=== PATIENT | female | born 1950 | race Hispanic/Latino ===

== ENCOUNTER 2018-08-23 16:11 | Inpatient (IN) | payer BC, MEDICARE ==
--- NOTE | 2018-08-23 16:58 | CT ---
EXAM: CT brain without contrast HISTORY: Dizziness. Fell and hit head COMPARISON: None TECHNIQUE: Multiple contiguous axial images were obtained and a CT of the brain without contrast. FINDINGS: The brain is normal in morphology and attenuation without focal lesions or confluent areas of infarction. There is no evidence of hydrocephalus, intracranial hemorrhage, or extra-axial fluid collection. An implantable generator in the right parietal region with leads leading to the inner ear produces st reak artifact slightly limiting this examination.. The visualized paranasal sinuses and left mastoid air cells are well aerated. IMPRESSION: No evidence of acute intracranial abnormality
--- NOTE | 2018-08-23 17:11 | RAD ---
EXAM: Single view of the chest HISTORY: Dizziness and fall COMPARISON: 03/31/2003 FINDINGS: Single view of the chest shows a normal sized cardiomediastinal silhouette. There is no darline dence of consolidation, mass, or pleural effusion. Degenerative changes are seen in the spine. IMPRESSION: No evidence of acute cardiopulmonary disease
[2018-08-23 17:26] LABS: #Lymphocytes 0.7 thou/uL (1.20-3.40); #Monocytes 0.4 thou/uL (0.11-0.59); %Basophils 0.1 % (0.0-1.0); %Eosinophils 0.3 % (0.0-10.0); %Lymphocytes 7.7 % (21.0-51.0); %Monocytes 4.7 % (0.0-10.0); %Neutrophils 87.2 % (42.0-75.0); Hemoglobin 10.1 g/dL (12.0-16.0); Mean Corpuscular HGB CONC 33.3 g/dL (32.0-36.0); Mean Corpuscular Hemoglobin 31.3 pg (27.0-31.0); Mean Corpuscular Volume 93.8 fL (78.0-98.0); Platelet Count 168 thou/uL (130-400); Red Blood Cell (RBC) Count 3.23 mill/uL (4.20-5.40); White Blood Cell (WBC) Count 9.1 thou/uL (4.8-10.8)
--- NOTE | 2018-08-23 17:44 | RAD ---
EXAM: Single view of the chest HISTORY: Dizziness COMPARISON: 03/31/2003 FINDINGS: Single view of the chest shows a normal sized cardiomediastinal silhouette. Atheroscleroti c calcifications are seen in the aorta. There are subtle bilateral lower lobe airspace opacities which may represent atelectasis or infiltrates. IMPRESSION: Bilateral lower lobe atelectasis versus infiltrates.
[2018-08-23 17:47] LABS: ALT (SGPT) 28 U/L (8-55); AST (SGOT) 20 U/L (5-34); Albumin 3.4 g/dL (3.4-4.8); Alkaline Phosphatase 101 U/L (40-150); Anion Gap 15 mmol/L (10-20); BUN (Urea Nitrogen) 53 mg/dL (9.8-20.1); Bilirubin, Total 0.3 mg/dL (0.2-1.2); Calc. Creatinine Clearance 0 mL/min (70-130); Calcium 8.2 mg/dL (7.8-10.44); Carbon Dioxide 18 mmol/L (23-31); Chloride 108 mmol/L (98-107); Estimated GFR-MDRD 19; Globulin 2.4 g/dL (2.4-3.5); Glucose 337 mg/dL (80-115); Potassium 6.4 mmol/L (3.5-5.1); Protein, Total 5.8 g/dL (6.0-8.3); Sodium 135 mmol/L (136-145)
[2018-08-23 18:49] LABS: Bilirubin Negative (Negative); Blood, Urine Negative (Negative); Clarity CLOUDY (Clear); Glucose, Urine (Dipstick) >=1000 mg/dL (Negative); Leukocyte Negative (Negative); Nitrite Negative (Negative); Protein, Urine (Dipstick) 100 mg/dL (Neg-Trace); Specific Gravity, Urine 1.015 (1.002-1.036); Urobilinogen 0.2 mg/dL (0.2-1.0)
[2018-08-23 18:50] LABS: Bacteria/HPF None Seen HPF (None Seen); Hyaline Casts/LPF 4-6 HYALINE CAST LPF (0-3 Hyaline); Pathc Cast-AUWi Flag 1.22 (0-2.49); RBC/HPF 0-3 HPF (0-3); Squamous Epithelial 0-3 HPF (0-3); WBC/HPF 0-3 HPF (0-3)
[2018-08-23] MEDS ORDERED: Sodium Bicarbonate 150 MEQ in Dextrose 5% in Water 1,000 ML IV SCH (19:00)
[2018-08-23] MEDS ORDERED: Acetaminophen 325 MG TAB PO PRN (20:01)
[2018-08-23] MEDS ORDERED: Dextrose 50% Abboject 50 ML SYRINGE SLOW IVP PRN (20:02)
[2018-08-23] MEDS ORDERED: Dextrose 5% in Water 1,000 ML IV PRN (20:02)
[2018-08-23 21:01] VITALS: BMI 36.4
[2018-08-23] MEDS: Metoprolol Tartrate 50 MG TAB PO SCH (21:12)
[2018-08-23] MEDS: Atorvastatin Calcium 40 MG TAB PO SCH (21:12)
[2018-08-23] MEDS: Gabapentin 300 MG CAP PO SCH (21:12)
[2018-08-23 22:01] LABS: Anion Gap 13 mmol/L (10-20); BUN (Urea Nitrogen) 52 mg/dL (9.8-20.1); Calc. Creatinine Clearance 36 mL/min (70-130); Calcium 8.6 mg/dL (7.8-10.44); Carbon Dioxide 21 mmol/L (23-31); Chloride 108 mmol/L (98-107); Estimated GFR-MDRD 21; Glucose 308 mg/dL (80-115); Potassium 5.4 mmol/L (3.5-5.1); Sodium 137 mmol/L (136-145)
[2018-08-23] MEDS: HumaLOG 300 UNITS/3 ML VIAL SC PRN (22:33)
[2018-08-23] MEDS: Sodium Chloride 0.9% 1,000 ML IV SCH (23:45)
[2018-08-24 00:23] LABS: Troponin I Less than 0.010 ng/mL (< 0.028)
--- NOTE | 2018-08-24 03:38 | HP ---
CHIEF COMPLAINT: Dizziness, near syncope. HISTORY OF PRESENT ILLNESS: This patient is a 67-year-old female, who recently underwent cochlear implants, still going through the process and at this point is still having the same hearing difficulties. Since she had the implants on July 24, she has been having some headaches and dizziness. Today, her headache was more severe when she got up, she had more profound dizziness and fell and bumped the back of her head on the left side. The patient reports that last week she was given p.o. steroids for the dizziness, and during that time, her blood sugars were running well over 500 in addition to the steroids. The patient has been having some difficulty getting her medications from the pharmacy [facility], so she has been getting samples and had to change her medications, and since that time, she has had very poor blood sugar control. She does admit to significant polyuria, polydipsia, and has had just a general sense of profound fatigue. She has not had any significant fever. REVIEW OF SYSTEMS: All other systems are reviewed. All pertinent positives noted in the history of present illness. PAST MEDICAL HISTORY: Notable for diabetes, hypertension, and hyperlipidemia. PAST SURGICAL HISTORY: Cochlear implants on July 24. She had , bilateral cataractectomy, cholecystectomy, gastric bypass surgery. FAMILY HISTORY: She has a sister with some type of female cancer, who is still doing well in her 70s and working as a nurse. Another sister who a few weeks ago, who had end-stage renal disease. Her father also had end-stage renal disease and heart issues. SOCIAL HISTORY: The patient is a nonsmoker, nondrinker, and nondrug user. She is . Her is her surrogate decision maker, should that become necessary and she is full code. ALLERGIES: AZITHROMYCIN, IODINE. CURRENT MEDICATIONS: 1. Omeprazole 20 mg daily. 2. Tylenol No. 3 p.r.n., which she has not been using because she did not like the way it made her feel. 3. Nifedipine 60 mg daily. 4. Levemir 20 q.a.m. and 16 units subcu with her evening meal. 5. Atorvastatin 40 mg daily. 6. Levothyroxine 100 mcg daily. 7. Liothyronine 5 mcg daily. 8. Lisinopril 10 mg daily. 9. Jardiance 25 mg daily. 10. Metoprolol 50 mg b.i.d. 11. Gabapentin 300 mg at bedtime. 12. Sertraline 50 mg p.o. daily. PHYSICAL EXAMINATION: VITAL SIGNS: Blood pressure 122/56, pulse 65, respirations 19, O2 saturation 97 % on room air. She is afebrile. GENERAL APPEARANCE: Age-appropriate female. She is in no distress. She is awake, alert, oriented, pleasant, and cooperative. She is deaf and communicates primarily at this point with writing on erasable pad. She is able to speak very appropriately. HEENT: PERRL. No OP lesions. She does have a well-healed incisional scars posterior to both auricles. She does have a small bump on the left posterolateral scalp behind the incisional scar about 2 inches. NECK: Supple and symmetric with no lymphadenopathy, JVD, or carotid bruits. HEART: Regular rate and rhythm without murmurs, gallops, or rubs. LUNGS: Clear to auscultation bilaterally with good chest wall expansion and air exchange. ABDOMEN: Soft, nontender, and nondistended. Positive bowel sounds. No masses. No organomegaly. EXTREMITIES: She has trace edema on the left lower extremity, none on the right. NEUROLOGIC: She appears to be fully intact. Moving all extremities spontaneously with no focal deficits. PSYCH: The patient has normal affect and behavior. LABORATORY DATA: White count 9.1, hemoglobin 10.1, platelets 168. Sodium is 135, potassium 6.4, chloride 108, CO2 of 18, BUN 53, creatinine 2.56, glucose 337. LFTs normal. Albumin 3.4. Urinalysis over 1000 of glucose, protein is present. IMAGING STUDIES: 1. Chest x-ray shows what looks like some atelectasis in the bases. 2. Brain CT shows no evidence of acute intracranial abnormalities. The cochlear implants are present. IMPRESSION AND PLAN: 1. Near syncopal episode secondary to dizziness following recent cochlear implants, likely an expected side effect of the cochlear implant. She did not improve with the steroids. Also, I believe there is a significant component of dehydration related to this. 2. Small posterior scalp contusion appears generally benign. 3. Dehydration, suspect that the patient has had severe hyperglycemia leading to polydipsia and dehydration causing some worsening renal function and contributing to her dizziness and fall. We will aggressively hydrate. 4. Acute renal insufficiency. The patient's typical GFR is around 35. It is down to 19, today. I suspect this is mostly a prerenal. The ER doctor did speak with Dr. Cotton, who has recommended some fluids and we will continue to monitor. 5. Hyperkalemia secondary to the acute renal insufficiency. Dr. Cotton did not recommend anything more aggressive than fluids and bicarbonate at this time. EKG did not show any significant changes related to the hyperkalemia. We will certainly continue to hydrate and recheck these values in the morning. 6. Mild acidosis secondary to the acute renal insufficiency. 7. History of hypothyroidism. Continue with her usual regimen and check her TSH in the morning. 8. Diabetes mellitus, very poorly controlled as noted above, secondary to recent steroids and changes in her medications. We will continue selected home medications and cover with sliding scale insulin. 9. History of hypertension. Continue metoprolol. We will hold lisinopril in light of the renal function. We will also continue her nifedipine. Job ID: [id number] [facility]
[2018-08-24] MEDS: Levothyroxine Sodium 100 MCG TAB PO SCH (05:19)
[2018-08-24 06:33] LABS: #Eosinphils 0.1 thou/uL (0.0-0.7); #Lymphocytes 1.2 thou/uL (1.20-3.40); #Monocytes 0.4 thou/uL (0.11-0.59); #Neutrophils 4.6 thou/uL (1.40-6.50); %Basophils 0.7 % (0.0-1.0); %Eosinophils 0.9 % (0.0-10.0); %Lymphocytes 19.1 % (21.0-51.0); %Neutrophils 73.4 % (42.0-75.0); Hemoglobin 9.8 g/dL (12.0-16.0); Hemoglobin A1c 7.9 % (4.0-6.0); Mean Corpuscular Hemoglobin 31.1 pg (27.0-31.0); Mean Corpuscular Volume 94.1 fL (78.0-98.0); Mean Platelet Volume 7.3 fL (7.4-10.4); Platelet Count 177 thou/uL (130-400); RBC Distribution Width 13.2 % (11.5-14.5); Red Blood Cell (RBC) Count 3.14 mill/uL (4.20-5.40); White Blood Cell (WBC) Count 6.2 thou/uL (4.8-10.8)
[2018-08-24 06:44] LABS: Anion Gap 12 mmol/L (10-20); BUN (Urea Nitrogen) 46 mg/dL (9.8-20.1); Calc. Creatinine Clearance 42 mL/min (70-130); Calcium 8.9 mg/dL (7.8-10.44); Carbon Dioxide 25 mmol/L (23-31); Chloride 109 mmol/L (98-107); Estimated GFR-MDRD 25; Glucose 159 mg/dL (80-115); Potassium 4.5 mmol/L (3.5-5.1); Sodium 141 mmol/L (136-145)
--- NOTE | 2018-08-24 07:50 | ULT ---
ULTRASOUND RENAL: DATE: 08/24/2018 HISTORY: Acute kidney injury in 67-year-old female. Rule out obstruction. FINDINGS: Urinary bladder volume is 890 mL. Normal wall thickness. Bilateral ureteral jets visualized. Right kidney: 9 x 5 x 4.5 cm. Left kidney: 11 x 4.5 x 5 cm. No hydronephrosis bilaterally. Bilateral renal parenchyma thin and slightly increased echogenicity suggestive of chronic medical rai al disease. No moderate sized or large renal cystic or solid lesion. IMPRESSION: 1. Very distended urinary bladder. 2. No hydronephrosis.
[2018-08-24] MEDS: Metoprolol Tartrate 50 MG TAB PO SCH ×2 (08:24→20:53)
[2018-08-24] MEDS: NIFEdipine XL 60 MG TAB PO SCH (08:24)
[2018-08-24] MEDS: Enoxaparin Sodium 30 MG/0.3 ML SYRINGE SC SCH (08:27)
[2018-08-24] MEDS: Sodium Chloride 0.9% 1,000 ML IV SCH ×3 (08:29→20:53)
--- NOTE | 2018-08-24 10:51 | PDOC.PN ---
- Subjective Encounter Start Date: 08/24/18 Encounter Start Time: 08:15 -: old records requested/rev Patient seen and examined. No new complaints. No overnight events - Objective Resuscitation Status - Order Detail: 08/23/18 20:01 Resuscitation Status Routine Resuscitation Status: FULL: Full Resuscitation MAR Reviewed: Yes Vital Signs & Weight: Vital Signs (12 hours) Temp Pulse Resp BP Pulse Ox 08/24/18 08:24 64 08/24/18 08:05 97.8 F 64 15 159/68 H 97 08/24/18 04:00 97.9 F 65 13 146/67 H 95 Weight Weight 221 lb I&O: 08/23/18 08/24/18 08/25/18 06:59 06:59 06:59 Intake Total 1050 Output Total 650 Balance 400 Result Diagrams: 08/24/18 05:50 08/24/18 05:50 Additional Labs: Accuchecks 08/24/18 08/24/18 08/23/18 10:24 06:38 22:01 POC Glucose 184 H 180 H 286 H 08/23/18 17:12 POC Glucose 303 H Radiology Reviewed by me: Yes (US kidney noted) EKG Reviewed by me: Yes (nsr) Phys Exam - Physical Examination Constitutional: NAD HEENT: PERRLA, moist MMs, sclera anicteric Neck: no JVD, supple Respiratory: no wheezing, no rales, no rhonchi Cardiovascular: RRR, no significant murmur, no rub Gastrointestinal: soft, non-tender, no distention, positive bowel sounds Musculoskeletal: no edema, pulses present Neurological: non-focal, normal sensation, moves all 4 limbs Lymphatic: no nodes Psychiatric: normal affect, A&O x 3 Skin: no rash, normal turgor Dx/Plan (1) Acute worsening of stage 3 chronic kidney disease Code(s): N18.3 - CHRONIC KIDNEY DISEASE, STAGE 3 (MODERATE) Status: Acute (2) Dehydration Code(s): E86.0 - DEHYDRATION Status: Acute (3) Dizziness Code(s): R42 - DIZZINESS AND GIDDINESS Status: Acute (4) Hyperkalemia Code(s): E87.5 - HYPERKALEMIA Status: Acute (5) Metabolic acidosis Code(s): E87.2 - ACIDOSIS Status: Acute (6) Scalp contusion Code(s): S00.03XA - CONTUSION OF SCALP, INITIAL ENCOUNTER Status: Acute (7) Anxiety and depression Code(s): F41.9 - ANXIETY DISORDER, UNSPECIFIED; F32.9 - MAJOR DEPRESSIVE DISORDER, SINGLE EPISODE, UNSPECIFIED Status: Chronic (8) Diabetes type 2, controlled Code(s): E11.9 - TYPE 2 DIABETES MELLITUS WITHOUT COMPLICATIONS Status: Chronic (9) Dyslipidemia Code(s): E78.5 - HYPERLIPIDEMIA, UNSPECIFIED Status: Chronic (10) Hypertension Code(s): I10 - ESSENTIAL (PRIMARY) HYPERTENSION Status: Chronic (11) Hypothyroidism Code(s): E03.9 - HYPOTHYROIDISM, UNSPECIFIED Status: Chronic (12) Obesity (BMI 30-39.9) Code(s): E66.9 - OBESITY, UNSPECIFIED Status: Chronic - Plan cont current plan of care, plan discussed w/ family, out of bed/ambulate * pt does not have currently bladder distension, she voided * creatinine is improving, continue IVF * discussed with family * medication reviewed as below * symptomatic treatment. * check free T4 and T3 in view of low TSH * repeat labs tomorrow * walking program Review of Systems - Review of Systems ENT: negative: Ear Pain, Ear Discharge, Nose Pain, Nose Discharge, Nose Congestion, Mouth Pain, Mouth Swelling, Throat Pain, Throat Swelling, Other Respiratory: negative: Cough, Dry, Shortness of Breath, Hemoptysis, SOB with Excertion, Pleuritic Pain, Sputum, Wheezing Cardiovascular: negative: chest pain, palpitations, orthopnea, paroxysmal nocturnal dyspnea, edema, light headedness, other Gastrointestinal: negative: Nausea, Vomiting, Abdominal Pain, Diarrhea, Constipation, Melena, Hematochezia, Other Genitourinary: negative: Dysuria, Frequency, Incontinence, Hematuria, Retention , Other Musculoskeletal: negative: Neck Pain, Shoulder Pain, Arm Pain, Back Pain, Hand Pain, Leg Pain, Foot Pain, Other Skin: negative: Rash, Lesions, Anthony, Bruising, Other - Medications/Allergies Allergies/Adverse Reactions: Allergies Allergy/AdvReac Type Severity Reaction Status Date / Time azithromycin Allergy Verified 11/30/12 10:43 iodine Allergy Verified 11/30/12 10:44 Medications: Current Medications Acetaminophen (Tylenol) 650 mg PO Q4H PRN PRN Reason: Headache/Fever/Mild Pain (1-3) Atorvastatin Calcium (Lipitor) 40 mg PO HS [facility] Last Admin: 08/23/18 21:12 Dose: 40 mg Dextrose/Water (Dextrose 50%) 25 gm SLOW IVP PRN PRN PRN Reason: Hypoglycemia Enoxaparin Sodium (Lovenox) 30 mg SC 0900 [facility] Last Admin: 08/24/18 08:27 Dose: 30 mg Gabapentin (Neurontin) 300 mg PO HS [facility] Last Admin: 08/23/18 21:12 Dose: 300 mg Glucagon (Glucagon) 1 mg IM PRN PRN PRN Reason: Hypoglycemia Sodium Chloride (Normal Saline 0.9%) 1,000 mls @ 125 mls/hr IV .Q8H [facility] Last Admin: 08/24/18 10:28 Dose: 1,000 mls Dextrose/Water (D5w) 1,000 mls @ 0 mls/hr IV .Q0M PRN PRN Reason: Hypoglycemia Insulin Human Lispro (Humalog) 0 units SC .MODERATE SLIDING SC PRN PRN Reason: Moderate Correctional Scale Insulin Human Lispro (Humalog) 0 units SC .BEDTIME SLIDING SC PRN PRN Reason: Bedtime Correctional Scale Last Admin: 08/23/18 22:33 Dose: 3 unit Levothyroxine Sodium (Synthroid) 100 mcg PO 0600 [facility] Last Admin: 08/24/18 05:19 Dose: 100 mcg Metoprolol Tartrate (Lopressor) 50 mg PO BID [facility] Last Admin: 08/24/18 08:24 Dose: 50 mg Nifedipine (Procardia Xl) 60 mg PO DAILY [facility] Last Admin: 08/24/18 08:24 Dose: 60 mg Pantoprazole Sodium (Protonix) 40 mg PO DAILY [facility] Last Admin: 08/24/18 08:24 Dose: 40 mg Sertraline HCl (Zoloft) 50 mg PO DAILY [facility] Last Admin: 08/24/18 08:24 Dose: 50 mg Sodium Chloride (Flush - Normal Saline) 10 ml IVF Q12HR [facility] Last Admin: 08/24/18 09:18 Dose: Not Given Sodium Chloride (Flush - Normal Saline) 10 ml IVF PRN PRN PRN Reason: Saline Flush
--- NOTE | 2018-08-24 11:35 | CON ---
DATE OF CONSULTATION: 08/23/2018 REASON FOR CONSULT: Hyperkalemia and acute kidney injury. REASON FOR ADMISSION: Near syncope. HISTORY OF PRESENT ILLNESS: This is a 67-year-old female with past history of diabetes, , hyperlipidemia, came to the hospital with near syncope and found to have elevated creatinine and potassium. Nephrology was consulted. The patient is feeling a bit better. She is hard of hearing. She cannot hear at all because of recent bilateral cochlear implants. No chest pain or palpitation. PAST MEDICAL HISTORY: Positive for diabetes, hyperlipidemia, , edema. PAST SURGICAL HISTORY: Cochlear implants, , bilateral cataract surgery, cholecystectomy, and gastric bypass. ALLERGIES: AZITHROMYCIN AND IODINE. HOME MEDICATIONS: 1. She takes potassium at home. 2. Levemir. 3. Sertraline. 4. Lisinopril. 5. Levothyroxine. 6. Nifedipine. 7. Atorvastatin. 8. Gabapentin. SOCIAL HISTORY: No smoking, alcohol, or illicit drugs. FAMILY HISTORY: No history of kidney disease. REVIEW OF SYSTEMS: CONSTITUTIONAL: Negative for weight loss or gain, ability to conduct usual activities. SKIN: Negative for rash, itching. EYES: Negative for double vision, pain. ENT/MOUTH: Negative for nose bleeding, neck stiffness, pain, tenderness. CARDIOVASCULAR: Negative for palpitations, dyspnea on exertion, orthopnea. RESPIRATORY: Negative for shortness of breath, wheezing, cough, hemoptysis, fever or night sweats. GASTROINTESTINAL: Negative for poor appetite, abdominal pain, heartburn, nausea, vomiting, constipation, or diarrhea. GENITOURINARY: Negative for urgency, frequency, dysuria, nocturia. MUSCULOSKELETAL: Negative for pain, swelling. NEUROLOGIC/PSYCHIATRIC: Negative for anxiety, depression. ALLERGY/IMMUNOLOGIC: Negative for skin rash, bleeding tendency. PHYSICAL EXAMINATION: GENERAL: Reveals an obese female, in no apparent distress. VITAL SIGNS: Temperature 99, pulse 71, respiratory rate 18, blood pressure 136/63. HEENT: Atraumatic, normocephalic. Oral mucosa is moist. NECK: Supple. CARDIOVASCULAR: S1, S2 heard. Rate and rhythm regular. RESPIRATORY: Clear. GI: Abdomen is obese. MUSCULOSKELETAL: No edema. DERMATOLOGIC: No skin rash. NEUROLOGICAL: Alert and awake. PSYCHIATRIC: Mood and affect normal. LABORATORY DATA: Hemoglobin is 10.1, potassium is 6.4 down to 5.4, bicarb is 21 from 18, BUN 52, and creatinine is 2.3. Hemoglobin is 10.1. ASSESSMENT AND PLAN: 1. Acute kidney injury, most likely from volume depletion. Creatinine is better with hydration. 2. Hyperkalemia, better with medical management. Continue to monitor. 3. Metabolic acidosis. 4. . 5. Anemia. 6. Hyperglycemia. 7. Type 2 diabetes. 8. Continue medical management. Potassium is already better. Continue close monitoring. Avoid nephrotoxins. Hold lisinopril and potassium supplement. We will continue to follow. Thank you for the consult. No acute indication for dialysis. Job ID: [id number]
[2018-08-24] MEDS ORDERED: Cepastat Lozenges 1 LOZ PO PRN (11:37)
[2018-08-24] MEDS ORDERED: Loperamide HCl 2 MG CAP PO PRN (11:37)
[2018-08-24] MEDS ORDERED: Loratadine 10 MG TAB PO PRN (11:37)
[2018-08-24] MEDS ORDERED: Senokot S 8.6-50 MG TAB PO PRN (11:37)
[2018-08-24] MEDS ORDERED: Ondansetron PF 4 MG/2 ML Vial IVP PRN (11:37)
[2018-08-24] MEDS ORDERED: Artificial Tears 18 DROP/0.9 ML EA EYE PRN (11:37)
[2018-08-24] MEDS ORDERED: Zolpidem Tartrate 5 MG TAB PO PRN (11:37)
[2018-08-24] MEDS ORDERED: hydrALAZINE 20 MG/ML VIAL SLOW IVP PRN (11:37)
[2018-08-24] MEDS ORDERED: Bisacodyl 10 MG SUPP PR PRN (11:37)
[2018-08-24] MEDS ORDERED: Ondansetron ODT 4 MG TAB PO PRN (11:37)
[2018-08-24] MEDS ORDERED: Diabetic Tussin 200 MG/10 ML UDCUP PO PRN (11:37)
[2018-08-24] MEDS ORDERED: HYDROcodone/Acetaminophen 5/325 mg Tablet PO PRN (11:37)
[2018-08-24] MEDS ORDERED: Sodium Chloride 0.65% Nasal 44 ML BOT EA NARE PRN (11:37)
--- NOTE | 2018-08-24 11:47 | PRG ---
DATE OF SERVICE: 08/24/2018 SUBJECTIVE: A 67-year-old female being seen for acute kidney injury. The patient denied any nausea, vomiting, or chest pain. OBJECTIVE: CONSTITUTIONAL: The patient is awake and alert. VITAL SIGNS: Pulse 75, breathing 16, and blood pressure 146/67. GENERAL APPEARANCE AND MENTAL STATUS: Fair. HEAD/NECK: Normocephalic. Atraumatic. EYES: EOMI. No deformity. EARS: Clear. No ulcers. NOSE: Intact. No lesions. MOUTH: Clear. No discharge. THROAT: Clear. No exudate. LUNGS: Clear. No crackles. CARDIAC: S1, S2. No rub. ABDOMEN: Benign. Bowel sounds positive. GENITALIA/RECTUM: Coppola absent. BACK/EXTREMITIES: Edema 0+. NEUROLOGICAL: Alert and motor intact. SKIN: LYMPHATICS: LABORATORY DATA: Labs reviewed. IMPRESSION AND PLAN: Chronic kidney disease stage 4, stable. Acute kidney injury, stable. Hypertension, stable. Anemia, stable. Medication based on GFR appropriate. Job ID: [id number]
[2018-08-24 13:24] LABS: Free T4 (Free Thyroxine) 0.97 ng/dL (0.70-1.48)
[2018-08-24] MEDS: HumaLOG 300 UNITS/3 ML VIAL SC PRN ×2 (17:49→20:53)
[2018-08-24] MEDS: Atorvastatin Calcium 40 MG TAB PO SCH (20:53)
[2018-08-24] MEDS: Gabapentin 300 MG CAP PO SCH (20:53)
[2018-08-25] MEDS: Levothyroxine Sodium 100 MCG TAB PO SCH (05:22)
[2018-08-25] MEDS: Sodium Chloride 0.9% 1,000 ML IV SCH (05:22)
[2018-08-25 06:46] LABS: Anion Gap 13 mmol/L (10-20); BUN (Urea Nitrogen) 40 mg/dL (9.8-20.1); Calc. Creatinine Clearance 39 mL/min (70-130); Calcium 8.2 mg/dL (7.8-10.44); Carbon Dioxide 20 mmol/L (23-31); Chloride 111 mmol/L (98-107); Estimated GFR-MDRD 23; Glucose 188 mg/dL (80-115); Potassium 4.6 mmol/L (3.5-5.1); Sodium 139 mmol/L (136-145)
[2018-08-25] MEDS ORDERED: Sodium Chloride 0.9% 1,000 ML IV SCH (06:56)
[2018-08-25] MEDS: HumaLOG 300 UNITS/3 ML VIAL SC PRN ×2 (08:23→11:17)
[2018-08-25] MEDS: Enoxaparin Sodium 30 MG/0.3 ML SYRINGE SC SCH (08:24)
[2018-08-25] MEDS: Metoprolol Tartrate 50 MG TAB PO SCH (08:24)
[2018-08-25] MEDS: NIFEdipine XL 60 MG TAB PO SCH (08:25)
--- NOTE | 2018-08-25 11:18 | PDOC.PN ---
- Subjective Encounter Start Date: 08/25/18 Encounter Start Time: 08:40 -: old records requested/rev Patient seen and examined. No new complaints. No overnight events - Objective Resuscitation Status - Order Detail: 08/23/18 20:01 Resuscitation Status Routine Resuscitation Status: FULL: Full Resuscitation MAR Reviewed: Yes Vital Signs & Weight: Vital Signs (12 hours) Temp Pulse Resp BP Pulse Ox 08/25/18 07:15 98.1 F 65 18 142/66 H 92 L 08/25/18 03:05 98.8 F 65 17 125/53 L 97 Weight Weight 221 lb 3.2 oz I&O: 08/24/18 08/25/18 08/26/18 06:59 06:59 06:59 Intake Total 1050 1920 Output Total 650 900 Balance 400 1020 Result Diagrams: 08/24/18 05:50 08/25/18 06:21 Additional Labs: Accuchecks 08/25/18 08/25/18 08/24/18 11:00 05:10 20:20 POC Glucose 177 H 189 H 274 H 08/24/18 16:43 POC Glucose 376 H EKG Reviewed by me: Yes Phys Exam - Physical Examination Constitutional: NAD HEENT: PERRLA, moist MMs, sclera anicteric Neck: no JVD, supple Respiratory: no wheezing, no rales, no rhonchi Cardiovascular: RRR, no significant murmur, no rub Gastrointestinal: soft, non-tender, no distention, positive bowel sounds Musculoskeletal: no edema, pulses present Neurological: non-focal, normal sensation, moves all 4 limbs Lymphatic: no nodes Psychiatric: normal affect, A&O x 3 Skin: no rash, normal turgor Dx/Plan (1) Acute worsening of stage 3 chronic kidney disease Code(s): N18.3 - CHRONIC KIDNEY DISEASE, STAGE 3 (MODERATE) Status: Acute (2) Dehydration Code(s): E86.0 - DEHYDRATION Status: Acute (3) Dizziness Code(s): R42 - DIZZINESS AND GIDDINESS Status: Acute (4) Hyperkalemia Code(s): E87.5 - HYPERKALEMIA Status: Acute (5) Metabolic acidosis Code(s): E87.2 - ACIDOSIS Status: Acute (6) Scalp contusion Code(s): S00.03XA - CONTUSION OF SCALP, INITIAL ENCOUNTER Status: Acute (7) Anxiety and depression Code(s): F41.9 - ANXIETY DISORDER, UNSPECIFIED; F32.9 - MAJOR DEPRESSIVE DISORDER, SINGLE EPISODE, UNSPECIFIED Status: Chronic (8) Diabetes type 2, controlled Code(s): E11.9 - TYPE 2 DIABETES MELLITUS WITHOUT COMPLICATIONS Status: Chronic (9) Dyslipidemia Code(s): E78.5 - HYPERLIPIDEMIA, UNSPECIFIED Status: Chronic (10) Hypertension Code(s): I10 - ESSENTIAL (PRIMARY) HYPERTENSION Status: Chronic (11) Hypothyroidism Code(s): E03.9 - HYPOTHYROIDISM, UNSPECIFIED Status: Chronic (12) Obesity (BMI 30-39.9) Code(s): E66.9 - OBESITY, UNSPECIFIED Status: Chronic - Plan cont current plan of care, plan discussed w/ family * medication reviewed as below * symptomatic treatment * see discharge summery. Review of Systems - Review of Systems ENT: negative: Ear Pain, Ear Discharge, Nose Pain, Nose Discharge, Nose Congestion, Mouth Pain, Mouth Swelling, Throat Pain, Throat Swelling, Other Respiratory: negative: Cough, Dry, Shortness of Breath, Hemoptysis, SOB with Excertion, Pleuritic Pain, Sputum, Wheezing Cardiovascular: negative: chest pain, palpitations, orthopnea, paroxysmal nocturnal dyspnea, edema, light headedness, other Gastrointestinal: negative: Nausea, Vomiting, Abdominal Pain, Diarrhea, Constipation, Melena, Hematochezia, Other Genitourinary: negative: Dysuria, Frequency, Incontinence, Hematuria, Retention , Other Musculoskeletal: negative: Neck Pain, Shoulder Pain, Arm Pain, Back Pain, Hand Pain, Leg Pain, Foot Pain, Other Skin: negative: Rash, Lesions, Anthony, Bruising, Other - Medications/Allergies Allergies/Adverse Reactions: Allergies Allergy/AdvReac Type Severity Reaction Status Date / Time azithromycin Allergy Verified 11/30/12 10:43 iodine Allergy Verified 11/30/12 10:44 Medications: Current Medications Acetaminophen (Tylenol) 650 mg PO Q4H PRN PRN Reason: Headache/Fever/Mild Pain (1-3) Hydrocodone Bitart/Acetaminophen ([place] 5/325) 1 tab PO Q4H PRN PRN Reason: Moderate Pain (4-6) Artificial Tears (Tears Naturale) 2 drop EA EYE PRN PRN PRN Reason: Dry Eyes Atorvastatin Calcium (Lipitor) 40 mg PO HS [facility] Last Admin: 08/24/18 20:53 Dose: 40 mg Bisacodyl (Dulcolax) 10 mg [place] DAILYPRN PRN PRN Reason: Constipation Dextrose/Water (Dextrose 50%) 25 gm SLOW IVP PRN PRN PRN Reason: Hypoglycemia Enoxaparin Sodium (Lovenox) 30 mg SC 0900 [facility] Last Admin: 08/25/18 08:24 Dose: 30 mg Gabapentin (Neurontin) 300 mg PO HS [facility] Last Admin: 08/24/18 20:53 Dose: 300 mg Glucagon (Glucagon) 1 mg IM PRN PRN PRN Reason: Hypoglycemia Guaifenesin (Robitussin Sf) 200 mg PO Q4H PRN PRN Reason: Cough Hydralazine HCl (Apresoline) 10 mg SLOW IVP Q4H PRN PRN Reason: SBP > 180 and HR < 70 Dextrose/Water (D5w) 1,000 mls @ 0 mls/hr IV .Q0M PRN PRN Reason: Hypoglycemia Sodium Chloride (Normal Saline 0.9%) 1,000 mls @ 75 mls/hr IV .[id number] [facility] Last Admin: 08/25/18 08:33 Dose: 1,000 mls Insulin Human Lispro (Humalog) 0 units SC .MODERATE SLIDING SC PRN PRN Reason: Moderate Correctional Scale Last Admin: 08/25/18 08:23 Dose: 2 unit Insulin Human Lispro (Humalog) 0 units SC .BEDTIME SLIDING SC PRN PRN Reason: Bedtime Correctional Scale Last Admin: 08/24/18 20:53 Dose: 3 unit Levothyroxine Sodium (Synthroid) 100 mcg PO 0600 [facility] Last Admin: 08/25/18 05:22 Dose: 100 mcg Loperamide HCl (Imodium) 2 mg PO PRN PRN PRN Reason: Diarrhea/Loose Stools Loratadine (Claritin) 10 mg PO DAILYPRN PRN PRN Reason: Sinus Symptoms Metoprolol Tartrate (Lopressor) 50 mg PO BID [facility] Last Admin: 08/25/18 08:24 Dose: 50 mg Nifedipine (Procardia Xl) 60 mg PO DAILY [facility] Last Admin: 08/25/18 08:25 Dose: 60 mg Ondansetron HCl (Zofran Odt) 4 mg PO Q6H PRN PRN Reason: Nausea/Vomiting Ondansetron HCl (Zofran) 4 mg IVP Q6H PRN PRN Reason: Nausea/Vomiting Pantoprazole Sodium (Protonix) 40 mg PO DAILY [facility] Last Admin: 08/25/18 08:25 Dose: 40 mg Senna/Docusate Sodium (Senokot S) 2 tab PO BID PRN PRN Reason: Constipation Sertraline HCl (Zoloft) 50 mg PO DAILY [facility] Last Admin: 08/25/18 08:25 Dose: 50 mg Sodium Chloride (Flush - Normal Saline) 10 ml IVF Q12HR [facility] Last Admin: 08/25/18 08:26 Dose: 10 ml Sodium Chloride (Flush - Normal Saline) 10 ml IVF PRN PRN PRN Reason: Saline Flush Sodium Chloride ([place] Nasal [place] 0.65%) 0 ml EA NARE QIDPRN PRN PRN Reason: Nasal Congestion Throat Lozenges (Cepastat Lozenges) 1 crow PO Q2H PRN PRN Reason: Sore Throat Zolpidem Tartrate (Ambien) 5 mg PO HSPRN PRN PRN Reason: Insomnia
[2018-08-25 11:23] VITALS: BP 149/67; TEMP 98.6
--- NOTE | 2018-08-25 12:48 | PRG ---
DATE OF SERVICE: 08/25/2018 SUBJECTIVE: A 67-year-old female, being seen for acute kidney injury. The patient denies nausea, vomiting, or chest pain. OBJECTIVE: CONSTITUTIONAL: The patient is awake and alert. VITAL SIGNS: Pulse 59, breathing 16, and blood pressure 142/66. GENERAL APPEARANCE AND MENTAL STATUS: Fair. HEAD/NECK: Normocephalic. Atraumatic. EYES: EOMI. No deformity. EARS: Clear. No ulcers. NOSE: Intact. No lesions. MOUTH: Clear. No discharge. THROAT: Clear. No exudate. LUNGS: Clear. No crackles. CARDIAC: S1, S2. No rub. ABDOMEN: Benign. Bowel sounds positive. GENITALIA/RECTUM: Coppola absent. BACK/EXTREMITIES: Edema 0+. NEUROLOGICAL: Alert and motor intact. SKIN: LYMPHATICS: LABORATORY DATA: Hemoglobin 9.8. Creatinine 1.1. IMPRESSION AND PLAN: 1. Chronic kidney disease, stage 4, mild increasing creatinine. 2. Hypertension, stable. 3. Anemia, stable. 4. Medication based on GFR appropriate. The patient will follow up with Dr. Cotton in 1 week. Job ID: [id number]
--- NOTE | 2018-08-25 13:55 | DIS ---
DATE OF ADMISSION: 08/23/2018 DATE OF DISCHARGE: 08/25/2018 PRIMARY CARE PHYSICIAN: Jean Joseph MD DISCHARGE DISPOSITION: Home. PRIMARY DISCHARGE DIAGNOSES: 1. Dehydration. 2. Dizziness. 3. Hyperkalemia. 4. Acute on chronic kidney failure, baseline chronic kidney disease stage 3. 5. Scalp contusion. SECONDARY DISCHARGE DIAGNOSES: 1. Obesity with BMI 36. 2. Hypothyroidism. 3. Hypertension. 4. Dyslipidemia. 5. Diabetes type 2. 6. Diabetic nephropathy. 7. Anxiety and depression. 8. Normocytic normochromic anemia. PRIMARY PROCEDURE/OPERATION: None. RADIOLOGICAL INVESTIGATION: CT brain showed scalp contusion. Chest x-ray normal. Renal ultrasound showed bladder distention, but no acute hydronephrosis. SIGNIFICANT LABORATORY DATA: WBC 6.2, hemoglobin 9.8, platelets 177. Sodium 139, creatinine 2.15, calcium 8.2. Urinalysis, proteinuria, glucosuria. DISCHARGE MEDICATIONS: 1. Tylenol No. 3 one or two tablets q.6 hourly p.r.n. for pain. 2. Lipitor 40 mg p.o. daily. 3. Empagliflozin 25 mg p.o. daily. 4. Gabapentin 300 mg p.o. daily. 5. Levemir 20 units subcutaneous a.c. h.s. 6. Synthroid 100 mcg p.o. daily. 7. Liothyronine 5 mcg p.o. daily. 8. Metoprolol tartrate 50 mg p.o. b.i.d. 9. Procardia XL 60 mg p.o. daily. 10. Omeprazole 20 mg p.o. daily. 11. Zoloft 50 mg p.o. daily. CONTRAINDICATION: None. CODE STATUS: Full code. INPATIENT PIGGERY WORKER: Dr. Balderas was following while in hospital. TEST RESULTS PENDING ON DISCHARGE: None. ALLERGIES: AZITHROMYCIN AND IODINE. DISCHARGE PLAN: Posthospital, the patient will follow up with primary care physician in 1 week. The patient will follow up with Dr. Cotton as instructed for monitoring renal function. HOSPITAL COURSE: A 67-year-old female with above-mentioned medical problem, who was admitted by Dr. Ascencio. Please see his H and P for further details. The patient was having dizziness, lightheadedness, and near syncopal episode. She was clinically dehydrated. She was also having acute on chronic kidney failure based on numbers. The patient was evaluated by Nephrology while in hospital. Renal ultrasound was unremarkable. The patient was hydrated with IV fluid and her renal function improved. I spoke with Dr. Balderas and he recommended that this patient's renal function is up to baseline level now and she can follow up with them as an outpatient basis for monitoring her renal function. The patient and the patient's family member are agreed with this plan. We are not making any change in her home medication other than we had discontinued lisinopril for her hyperkalemia on admission. Necessary patient education about avoidance of high potassium diet was discussed with the patient. Rest of medication will be continued as per previous. The patient will follow up with primary care physician and Dr. Balderas or Dr. Cotton. The patient is seen and examined at bedside today. Please see my progress note from today for further details. Job ID: [id number]
--- NOTE | 2018-08-25 14:58 | PQF ---
CLINICAL DOCUMENTATION IMPROVEMENT CLARIFICATION FORM: ICD-10 Updated PLEASE DO AN ADDENDUM TO THE PROGRESS NOTE WITH ANY DOCUMENTATION UPDATES OR ADDITIONS AND CARRY THROUGH TO DC SUMMARY. THANK YOU. DATE: 08/25/2018 ATTN: Dr. De La Cruz Please exercise your independent, professional judgment in responding to the clarification form. Clinical indicators are provided on the bottom of this form for your review Please check appropriate box(s): Conflicting documentation was noted in the Medical Record, please clarify if patient is being treated/monitored for: [ x] Chronic Kidney Disease, Stage 3 [ ] Chronic Kidney Disease, Stage 4 [ ] Other diagnosis [ ] Unable to determine In addition, please specify: Present on Admission (POA): [ x ] Yes [ ] No [ ] Unable to determine For continuity of documentation, please document condition throughout progress notes and discharge summary. Thank You. CLINICAL INDICATORS - SIGNS / SYMPTOMS/ LABS 08/23/201808/24 LAB: Creatinine 2.56 1.98 2.15 Estimated GFR 19 25 23 08/25 (Andrey): Chronic kidney disease, stage 4, mild increasing creatinine. DC Summary 08/25: Acute on chronic kidney failure, baseline chronic kidney disease stage 3 RISKS: H&P 08/23: PMH DM, HTN. Dehydration. Acute Renal insufficiency. The pt's typical GFR is around 35. TREATMENT: Order 08/23-08/25: NS IV 125 mls/hr Thank you, Essie (This form is maintained as a part of the permanent medical record) 2014 [employer]. All Rights Reserved Essie Jc RN, BSN [email or web address] Office: [phone] [facility]
== END 2018-08-25 12:57 | disposition home or self-care (01) | DRG 683 ==
LOC: ERS 16:11 → 2NO 20:31
PROVIDERS: ADMIT Internal Medicine; ATTEND Internal Medicine
DX: N17.9 Acute kidney failure, unspecified (principal); E87.2 Acidosis; Z96.21 Cochlear implant status; E11.22 Type 2 diabetes mellitus with diabetic chronic kidney disease; I12.9 Hypertensive chronic kidney disease with stage 1 through stage 4 chronic kidney disease, or unspecified chronic kidney disease; E78.5 Hyperlipidemia, unspecified; N18.3 Chronic kidney disease, stage 3 (moderate); E86.0 Dehydration; E87.5 Hyperkalemia; E03.9 Hypothyroidism, unspecified; R55 Syncope and collapse; E11.65 Type 2 diabetes mellitus with hyperglycemia; S00.03XA Contusion of scalp, initial encounter; E66.9 Obesity, unspecified; E11.21 Type 2 diabetes mellitus with diabetic nephropathy; F41.9 Anxiety disorder, unspecified; F32.9 Major depressive disorder, single episode, unspecified; D63.1 Anemia in chronic kidney disease; Z90.49 Acquired absence of other specified parts of digestive tract; Z68.36 Body mass index [BMI] 36.0-36.9, adult; Z88.8 Allergy status to other drugs, medicaments and biological substances; Z88.1 Allergy status to other antibiotic agents; Z79.4 Long term (current) use of insulin; Z79.899 Other long term (current) drug therapy
CPT/HCPCS: 36415; 36416; 51701; 70450; 71045; 76770; 80048; 80053; 81003; 81015; 83036; 84439; 84443; 84481; 84484; 85025; 93005; 94760; 96360; 96361; A4353; J1650; J7070

== ENCOUNTER 2018-09-18 17:47 | Emergency (ER) | payer MEDICARE ==
[2018-09-18 19:53] LABS: #Eosinphils 0.1 thou/uL (0.0-0.7); #Lymphocytes 1.4 thou/uL (1.20-3.40); #Monocytes 0.4 thou/uL (0.11-0.59); #Neutrophils 5.1 thou/uL (1.40-6.50); %Basophils 0.4 % (0.0-1.0); %Eosinophils 1.2 % (0.0-10.0); %Monocytes 5.5 % (0.0-10.0); %Neutrophils 72.9 % (42.0-75.0); Hemoglobin 10.9 g/dL (12.0-16.0); Mean Corpuscular HGB CONC 32.7 g/dL (32.0-36.0); Mean Corpuscular Hemoglobin 30.4 pg (27.0-31.0); Mean Corpuscular Volume 92.9 fL (78.0-98.0); Mean Platelet Volume 7.3 fL (7.4-10.4); Platelet Count 212 thou/uL (130-400); RBC Distribution Width 13.2 % (11.5-14.5); Red Blood Cell (RBC) Count 3.59 mill/uL (4.20-5.40); White Blood Cell (WBC) Count 7.1 thou/uL (4.8-10.8)
[2018-09-18 20:16] LABS: ALT (SGPT) 24 U/L (8-55); AST (SGOT) 20 U/L (5-34); Albumin 3.7 g/dL (3.4-4.8); Alkaline Phosphatase 127 U/L (40-150); Anion Gap 16 mmol/L (10-20); BUN (Urea Nitrogen) 48 mg/dL (9.8-20.1); Bilirubin, Total 0.2 mg/dL (0.2-1.2); Calc. Creatinine Clearance 0 mL/min (70-130); Calcium 8.7 mg/dL (7.8-10.44); Carbon Dioxide 20 mmol/L (23-31); Chloride 105 mmol/L (98-107); Estimated GFR-MDRD 19; Globulin 3.4 g/dL (2.4-3.5); Glucose 229 mg/dL (80-115); Potassium 4.8 mmol/L (3.5-5.1); Protein, Total 7.1 g/dL (6.0-8.3); Sodium 136 mmol/L (136-145)
[2018-09-18 22:20] LABS: Bilirubin Negative (Negative); Blood, Urine Negative (Negative); Clarity CLEAR (Clear); Glucose, Urine (Dipstick) >=1000 mg/dL (Negative); Leukocyte Negative (Negative); Nitrite Negative (Negative); Protein, Urine (Dipstick) 100 mg/dL (Neg-Trace); Urobilinogen 0.2 mg/dL (0.2-1.0)
[2018-09-18 22:25] LABS: Bacteria/HPF 2+ HPF (None Seen); Hyaline Casts/LPF 0-3 HYALINE CAST LPF (0-3 Hyaline); Squamous Epithelial 0-3 HPF (0-3); WBC/HPF 0-3 HPF (0-3)
== END 2018-09-18 23:38 | disposition home or self-care (01) ==
LOC: ERS 17:47
DX: E11.65 Type 2 diabetes mellitus with hyperglycemia (principal)
CPT/HCPCS: 36415; 36416; 80053; 81003; 81015; 85025; 87077; 87086; 87186; 96360

== ENCOUNTER 2019-02-09 13:26 | Inpatient (IN) | payer MEDICARE ==
[2019-02-09] MEDS ORDERED: Acetaminophen 500 MG TAB ONE (13:43)
[2019-02-09] MEDS ORDERED: Piperacillin/Tazobactam 4.5 GM VIAL ONE (13:43)
[2019-02-09 14:03] LABS: #Lymphocytes 0.8 thou/uL (1.20-3.40); #Monocytes 0.4 thou/uL (0.11-0.59); #Neutrophils 7.2 thou/uL (1.40-6.50); %Basophils 0.4 % (0.0-1.0); %Eosinophils 0.1 % (0.0-10.0); %Lymphocytes 9.4 % (21.0-51.0); %Monocytes 4.6 % (0.0-10.0); %Neutrophils 85.5 % (42.0-75.0); Hemoglobin 10.9 g/dL (12.0-16.0); Mean Corpuscular HGB CONC 32.1 g/dL (32.0-36.0); Mean Corpuscular Hemoglobin 28.9 pg (27.0-31.0); Mean Corpuscular Volume 90.1 fL (78.0-98.0); Mean Platelet Volume 7.5 fL (7.4-10.4); Platelet Count 200 thou/uL (130-400); RBC Distribution Width 15.8 % (11.5-14.5); Red Blood Cell (RBC) Count 3.79 mill/uL (4.20-5.40); White Blood Cell (WBC) Count 8.4 thou/uL (4.8-10.8)
[2019-02-09 14:27] LABS: Bilirubin Negative (Negative); Blood, Urine 1+ (Negative); Clarity Turbid (Clear); Glucose, Urine (Dipstick) 30 mg/dL (Negative); Leukocyte Negative Leu/uL (Negative); Nitrite Negative (Negative); Protein, Urine (Dipstick) 300 mg/dL (Neg-Trace); RBC/HPF 0-3 HPF (0-3); Squamous Epithelial 0-3 HPF (0-3); Urobilinogen Normal mg/dL (Less than 2); WBC/HPF None Seen HPF (0-3)
[2019-02-09 14:30] LABS: ALT (SGPT) 25 U/L (8-55); AST (SGOT) 21 U/L (5-34); Albumin 3.4 g/dL (3.4-4.8); Alkaline Phosphatase 86 U/L (40-110); Anion Gap 18 mmol/L (10-20); BUN (Urea Nitrogen) 34 mg/dL (9.8-20.1); Bilirubin, Total 0.4 mg/dL (0.2-1.2); Calc. Creatinine Clearance 0 mL/min (70-130); Calcium 8.4 mg/dL (7.8-10.44); Carbon Dioxide 14 mmol/L (23-31); Chloride 110 mmol/L (98-107); Estimated GFR-MDRD 20; Globulin 3.3 g/dL (2.4-3.5); Glucose 99 mg/dL (80-115); Potassium 4.5 mmol/L (3.5-5.1); Protein, Total 6.7 g/dL (6.0-8.3); Sodium 137 mmol/L (136-145)
[2019-02-09 14:38] LABS: Bacteria/HPF None Seen HPF (None Seen)
[2019-02-09 14:51] LABS: CKMB 1.5 ng/mL (0-6.6)
--- NOTE | 2019-02-09 15:29 | RAD ---
RADIOGRAPH CHEST 1 VIEW: DATE: 02/09/2019 TIME: 1:56 PM HISTORY: 68-year-old female with sepsis COMPARISON: 08/23/2018 FINDINGS: There are extensive alveolar infiltrates involving much of the right lower lung zone. Some of the inf iltrates extend superiorly into the right upper lobe. Because the prior study was positioned with x-ray beam angled craniocaudally, while the current positioning is lordotic, it is difficult to nelly re. This could represent recurrent right sided pneumonia. It appears worse on the current study. The previously the mentioned pulmonary densities at the left base have cleared. No pneumothorax. The lateral costophrenic angles are sharp. IMPRESSION: Extensive right-sided pneumonia
[2019-02-09 16:59] LABS: Lactic Acid 1.4 mmol/L (0.5-2.2)
[2019-02-09 17:07] LABS: Troponin I Less than 0.010 ng/mL (< 0.028)
[2019-02-09] MEDS ORDERED: Senokot S 8.6-50 MG TAB PO PRN (17:13)
[2019-02-09] MEDS ORDERED: Dextrose 5% in Water 1,000 ML IV PRN (17:16)
[2019-02-09] MEDS ORDERED: Dextrose 50% Abboject 50 ML SYRINGE SLOW IVP PRN (17:16)
[2019-02-09] MEDS ORDERED: HumaLOG 300 UNITS/3 ML VIAL SC PRN (17:16)
[2019-02-09] MEDS ORDERED: Sodium Chloride 0.9% 1,000 ML IV SCH (17:30)
[2019-02-09] MEDS ORDERED: Acetaminophen/Codeine 30-300mg Tablet PO PRN (17:34)
[2019-02-09] MEDS ORDERED: Sodium Bicarbonate 150 MEQ in Dextrose 5% in Water 1,000 ML IV SCH (17:45)
[2019-02-09 18:07] VITALS: BMI 38.1
[2019-02-09] MEDS ORDERED: Prevnar 13-Val Conj/PF 0.5 ML SYRINGE IM ONE (20:00)
[2019-02-09 20:16] LABS: Troponin I Less than 0.010 ng/mL (< 0.028)
[2019-02-09] MEDS: Gabapentin 300 MG CAP PO SCH (20:26)
[2019-02-09] MEDS: Metoprolol Tartrate 50 MG TAB PO SCH (20:34)
[2019-02-09] MEDS ORDERED: INSULIN GLARGINE HUM REC ANLOG 16 UNIT SC SCH (21:00)
[2019-02-09] MEDS ORDERED: methylPREDNISolone Sod Succ/PF 125 MG/2 ML VIAL IVP SCH (21:00)
[2019-02-09] MEDS ORDERED: Insulin Glargine 16 UNITS in Pre-Filled Syringe 1 EACH SC SCH (21:00)
[2019-02-09] MEDS ORDERED: Insulin Glargine 13 UNITS in Pre-Filled Syringe 1 EACH SC SCH (21:00)
[2019-02-09] MEDS ORDERED: INSULIN DETEMIR 20 UNIT SC SCH (21:00)
[2019-02-10] MEDS: Acetaminophen 325 MG TAB PO PRN ×2 (00:11→13:02)
[2019-02-10] MEDS: hydrALAZINE 20 MG/ML VIAL SLOW IVP PRN ×2 (02:43→13:02)
--- NOTE | 2019-02-10 03:03 | HP ---
CHIEF COMPLAINT: Generalized body aches and pains. HISTORY OF PRESENT ILLNESS: The patient is a 68-year-old female with past medical history of diabetes and hypertension, who presents to the hospital with complaints of multiple symptoms. The patient states that she for the past couple of days has been having some abdominal pain, some dizziness, some nausea. She has been also having some back pain and just felt very weak all over. She denies any fevers or chills; however, started having a cough, but it was very dry. She stated that she stayed in bed all day; however, today she checked her blood pressure, blood pressure was 199 systolic, so she came into the hospital. The patient stated that she has not been taking any of her blood pressure medications and she states that whenever she feels ill, she does not take her blood pressure medications. PAST MEDICAL HISTORY: Diabetes, hypertension, hyperlipidemia, hypercholesterolemia, CKD stage 3 to 4. PAST SURGICAL HISTORY: She has had a cochlear implant in 07/2018, , cholecystectomy, and gastric bypass versus sleeve, unclear about that. ALLERGIES: SHE IS ALLERGIC TO AZITHROMYCIN AND IODINE, REACTION IS A RASH, I BELIEVE. MEDICATIONS: She takes, 1. Metoprolol 50 mg twice a day. 2. Procardia 60 mg daily. 3. Sertraline 50 mg daily. 4. Atorvastatin 40 mg daily and she also takes insulin 20 units a.c. and at bedtime. FAMILY HISTORY: Sister had an PR, multiple cardiac etiology in her family. REVIEW OF SYSTEMS: All negative except for the ones mentioned above in the HPI. PHYSICAL EXAMINATION: VITAL SIGNS: As of the following; temperature 99.2, pulse 86, respirations 18, oxygen saturations 97% on room air, blood pressure 194/72. GENERAL: She is awake, alert, and oriented x3. Does not appear in distress. HEENT: Normocephalic, atraumatic. No lymphadenopathy noted. Pupils are equal, reactive to light. LUNGS: Diminished breath sounds to right lower bases. Some crackles, normal on the left. CV: S1 and S2 present. No murmurs, rubs, or gallops. ABDOMEN: She does have some epigastric tenderness on palpation. EXTREMITIES: Mild +1 lower extremity pitting edema. NEUROLOGIC: No focal deficits noted. LABORATORY RESULTS: WBCs of 8.4, hemoglobin of 10.9, hematocrit of 34.1, and platelets of 200. Chemistry; sodium of 137, potassium of 4.5, BUN of 34, creatinine of 2.41. Lactic acid of 2.3. BNP of 181. She did have an x-ray, which indicated a right-sided extensive lower lobe pneumonia. She also had a urine, which appeared to be normal in nature. She did have the EKG, which did indicate initially sinus tach with some mild ST-segment depression in the lateral leads. However, there were very insignificant, I will compare to her previous one. ASSESSMENT AND PLAN: The patient is a very pleasant 68-year-old female, who presents to the hospital with complaints of generalized weakness and multiple complaints. 1. Right lower lobe pneumonia, most likely community-acquired pneumonia. We will start the patient on Levaquin since she is allergic to azithromycin. She did have a flu, which was negative. We will start her on some DuoNeb and continue to monitor and we will also take a sputum sample if she starts producing cough. 2. Chronic kidney disease stage 4. We will continue to monitor. Her bicarb level is really low. We will add 1 L of D5 with some bicarb and we will also consult Nephrology. 3. Lactic acidosis. This could most likely secondary to her initial presentation. Her repeat one was 1.4. 4. Mild elevated troponin, which was initial, again, this could be due to hypertension and then now is improving to back to her baseline. 5. Elevated blood pressure. We will restart her blood pressure medications and continue to monitor. 6. Diabetes. We will check Accu-Cheks before meals and at bedtime, and continue her home dose of insulin. 7. Deep venous thrombosis prophylaxis. We will put the patient on some heparin. Job ID: [id number]
[2019-02-10 04:57] LABS: #Lymphocytes 1.5 thou/uL (1.20-3.40); #Monocytes 0.4 thou/uL (0.11-0.59); #Neutrophils 5.7 thou/uL (1.40-6.50); %Eosinophils 0.6 % (0.0-10.0); %Lymphocytes 19.5 % (21.0-51.0); %Monocytes 5.4 % (0.0-10.0); %Neutrophils 74.5 % (42.0-75.0); Hemoglobin 8.7 g/dL (12.0-16.0); Mean Corpuscular HGB CONC 32.8 g/dL (32.0-36.0); Mean Corpuscular Hemoglobin 29.8 pg (27.0-31.0); Mean Corpuscular Volume 90.9 fL (78.0-98.0); Mean Platelet Volume 7.4 fL (7.4-10.4); Platelet Count 169 thou/uL (130-400); RBC Distribution Width 15.9 % (11.5-14.5); Red Blood Cell (RBC) Count 2.91 mill/uL (4.20-5.40); White Blood Cell (WBC) Count 7.6 thou/uL (4.8-10.8)
[2019-02-10] MEDS: Levothyroxine Sodium 100 MCG TAB PO SCH (05:12)
[2019-02-10 05:17] LABS: Anion Gap 14 mmol/L (10-20); BUN (Urea Nitrogen) 36 mg/dL (9.8-20.1); Calc. Creatinine Clearance 34 mL/min (70-130); Carbon Dioxide 16 mmol/L (23-31); Chloride 113 mmol/L (98-107); Estimated GFR-MDRD 20; Glucose 88 mg/dL (80-115); Potassium 4.1 mmol/L (3.5-5.1); Sodium 139 mmol/L (136-145)
[2019-02-10] MEDS: Enoxaparin Sodium 30 MG/0.3 ML SYRINGE SC SCH (08:56)
[2019-02-10] MEDS: Atorvastatin Calcium 40 MG TAB PO SCH (08:56)
[2019-02-10] MEDS: NIFEdipine XL 60 MG TAB PO SCH (08:57)
[2019-02-10] MEDS: Metoprolol Tartrate 50 MG TAB PO SCH ×2 (08:57→19:18)
[2019-02-10] MEDS ORDERED: Insulin Glargine 16 UNITS in Pre-Filled Syringe 1 EACH SC SCH (09:00)
[2019-02-10] MEDS ORDERED: INSULIN GLARGINE HUM REC ANLOG 20 UNIT SC SCH (09:00)
[2019-02-10] MEDS ORDERED: Insulin Glargine 20 UNITS in Pre-Filled Syringe 1 EACH SC SCH (09:00)
--- NOTE | 2019-02-10 12:05 | CON ---
DATE OF CONSULTATION: REASON FOR CONSULTATION: Elevated creatinine. HISTORY OF PRESENT ILLNESS: This is a very pleasant 68-year-old female, who presented to the hospital with generalized aches and pain and was noted to have right lower lobe pneumonia. The patient's baseline creatinine was 2.4 on admission. Now, it is 2.4. Prior baseline in August was 2.4. Her last reported creatinine in 2019 was 2.5, but in 2013, she was at 1.6. The patient denies any headache, numbness, tingling, or weakness. Denies any nausea, vomiting, or chest pain. The patient had a renal ultrasound done in August of 2018, which showed no hydronephrosis. PAST MEDICAL HISTORY: Significant for hypertension, diabetes mellitus, obesity, cochlear implant, cholecystectomy, and sleeve surgery. SOCIAL HISTORY: No alcohol or drug use. FAMILY HISTORY: Negative for ESRD. ALLERGIES: REVIEWED. REVIEW OF SYSTEMS: A 15-point review of systems was performed and was negative except for positives noted above. GENERAL: HEAD: NECK: No swelling or lumps. NOSE: No epistaxis or discharge. EYES: No diplopia or pain. RESPIRATORY: CARDIOVASCULAR: GASTROINTESTINAL: /PROFESSOR OF FRENCH: MUSCULOSKELETAL: No joint pain. NEUROPSYCHIATIC SYSTEMS: No suicidal ideation. No ideation. SKIN: Denies any rash or ulcer. CONSTITUTIONAL: No fever or chills. PHYSICAL EXAMINATION: GENERAL: The patient is awake and alert. VITAL SIGNS: Afebrile, pulse 77, breathing 16, blood pressure 137/64. GENERAL APPEARANCE AND MENTAL STATUS: Fair. HEAD/NECK: Normocephalic. Atraumatic. EYES: EOMI. No deformity. EARS: Clear. No ulcers. NOSE: Intact. No lesions. MOUTH: Clear. No discharge. THROAT: Clear. No exudate. LUNGS: Clear. No crackles. CARDIAC: S1, S2. No rub. ABDOMEN: Benign. Bowel sounds positive. GENITALIA/RECTUM: Coppola absent. BACK/EXTREMITIES: Edema 0+. NEUROLOGICAL: Alert and motor intact. SKIN: LYMPHATICS: LABORATORY DATA: Show creatinine 2.4. ASSESSMENT AND PLAN: 1. Chronic kidney disease, stage 3, most likely due to diabetic nephropathy in the setting of hypertension. No indication for dialysis. Renal function is stable. 2. Anemia, stable. Medication based on GFR, appropriate. We will follow renal function closely. The patient will need some sort of Epogen therapy. Job ID: [id number]
[2019-02-10] MEDS ORDERED: Mag-Al 1200 mg/1200 mg/30 ML UDCUP PO PRN (12:31)
[2019-02-10] MEDS ORDERED: Calcium Carbonate 500 MG ChewTAB PO PRN (12:31)
--- NOTE | 2019-02-10 13:06 | PQF ---
DEVAUGHN ORTEGA MALIK [id number] CLINICAL DOCUMENTATION IMPROVEMENT CLARIFICATION FORM: ICD-10 Updated PLEASE DO AN ADDENDUM TO THE PROGRESS NOTE WITH ANY DOCUMENTATION UPDATES OR ADDITIONS AND CARRY THROUGH TO DC SUMMARY. THANK YOU. DATE: 02/11/19 ATTN: Dr. Patterson Please exercise your independent, professional judgment in responding to the clarification form. Clinical indicators are provided on the bottom of this form for your review Please check appropriate box(es): [ x ] Sepsis due to: RLL pneumonia [ ] Localized infection without sepsis [ ] Other diagnosis [ ] Unable to determine In addition, please specify: Present on Admission (POA): [ x ] Yes [ ] No [ ] Unable to determine For continuity of documentation, please document condition throughout progress notes and discharge summary. Thank You. CLINICAL INDICATORS - SIGNS / SYMPTOMS / LABS / RESULTS AND LOCATION IN MR Fever or hypothermia (<96.8 F/36 C or > 100.4 F/38C)--> Temp 102.8 per 02/09 ED VS "Lactic acidosis" per 02/10 H&P([facility]) Lactic Acid >2mmol/L--> LA 2.3 02/09 lab %Neutros 85.5% 02/09 per lab ED VS 02/09 pulse 113 02/09 CXR extensive right sided pneumonia RISK FACTORS / RESULTS AND LOCATION IN MR Infection/Bacteremia--> 02/10 H/P [facility]: "RLL pneumonia, most likely community acquired pneumonia". 02/09 ED([facility]): "Sepsis, CAP" TREATMENTS / RESULTS AND LOCATION IN MR Initiation Sepsis Protocol per ED([facility]) 02/09 Daily CBC 02/09 to date per orders Blood/urine cultures 02/09 per orders IV antibiotics - broad spectrum--> ED 02/09 Zosyn 4.5 g IV x1--> 02/09 Levaquin 500 IV x1 to 02/10 Levaquin 250mg IV daily per orders IV Fluids--> NS 1 liter bolus x1 in ED 02/09 to NS at 50 to sodium bicarb 150meq in D5W at 100 x 1 bag per orders (This form is maintained as a part of the permanent medical record) 2014 [employer]. All Rights Reserved Quin Carey, RN, BSN, CCDS [phone] [facility]
[2019-02-10] MEDS ORDERED: HumaLOG 300 UNITS/3 ML VIAL SC PRN (14:21)
--- NOTE | 2019-02-10 14:24 | PDOC.HOSPP ---
- Subjective Encounter Date: 02/10/19 Encounter Time: 14:22 Subjective: Patient seen and examined for Sepsis. Feeling better. Dry cough +. No new complaints. No overnight events - Objective Vital Signs & Weight: Vital Signs (12 hours) Temp Pulse Resp BP BP Pulse Ox 02/10/19 13:13 80 16 97 02/10/19 13:02 76 02/10/19 10:50 97.6 F 76 16 178/72 H 95 02/10/19 09:00 95 02/10/19 07:11 98.4 F 84 16 171/72 H 96 02/10/19 06:56 73 16 96 02/10/19 04:00 98.1 F 77 16 137/64 02/10/19 02:43 80 177/79 H Weight Weight 215 lb 3 oz Result Diagrams: 02/11/19 04:18 02/11/19 04:18 Additional Labs: Accuchecks 02/10/19 02/10/19 02/09/19 10:48 05:18 21:08 POC Glucose 98 84 193 H Radiology Reviewed by me: Yes (CXR - Rt sided Pneumonia) EKG Reviewed by me: Yes (Tele SR) Hospitalist ROS - Review of Systems Respiratory: reports: cough, dry. denies: shortness of breath, hemoptysis, SOB with excertion, pleuritic pain, sputum, wheezing, other Cardiovascular: denies: chest pain, palpitations, orthopnea, paroxysmal noc. dyspnea, edema, light headedness, other Gastrointestinal: denies: nausea, vomiting, abdominal pain, diarrhea, constipation, melena, hematochezia, other Neurological: reports: other (gen headache). denies: weakness, numbness, incoordination, change in speech, confusion, seizures - Medication Medications: Active Medications Generic Name Dose Route Start Last Admin Trade Name Freq PRN Reason Stop Dose Admin Acetaminophen 650 mg 02/09/19 17:13 02/10/19 13:02 Tylenol PO 650 mg Q4H PRN Administration Headache/Fever/Mild Pain (1-3) Albuterol/Ipratropium 3 ml 02/09/19 19:00 02/10/19 13:13 Duoneb NEB 3 ml [id number] FLORENCIO Administration Atorvastatin Calcium 40 mg 02/10/19 09:00 02/10/19 08:56 Lipitor PO 40 mg DAILY FLORENCIO Administration Enoxaparin Sodium 30 mg 02/10/19 09:00 02/10/19 08:56 Lovenox SC 30 mg 0900 FLORENCIO Administration Gabapentin 300 mg 02/09/19 21:00 02/09/19 20:26 Neurontin PO 300 mg QPM FLORENCIO Administration Hydralazine HCl 10 mg 02/10/19 00:49 02/10/19 13:02 Apresoline SLOW IVP 10 mg Q6H PRN Administration SBP GREATER THAN 160 Insulin Glargine 16 units/ 0.16 mls @ 0 mls/hr 02/10/19 09:00 02/10/19 09:05 Miscellaneous Medication SC 0.16 mls QAM FLORENCIO Administration Levothyroxine Sodium 100 mcg 02/10/19 06:00 02/10/19 05:12 Synthroid PO 100 mcg 0600 FLORENCIO Administration Metoprolol Tartrate 50 mg 02/09/19 21:00 02/10/19 08:57 Lopressor PO 50 mg BID FLORENCIO Administration Nifedipine 60 mg 02/10/19 09:00 02/10/19 08:57 Procardia Xl PO 60 mg DAILY FLORENCIO Administration Pantoprazole Sodium 40 mg 02/10/19 12:31 02/10/19 13:02 Protonix PO 02/10/19 14:30 40 mg NOW FLORENCIO Administration Sertraline HCl 50 mg 02/10/19 09:00 02/10/19 08:58 Zoloft PO 50 mg DAILY FLORENCIO Administration - Exam General Appearance: NAD Neck: supple, no JVD Heart: RRR, no gallops, no rubs, normal peripheral pulses Respiratory: CTAB, no wheezes, rales (Rt sided), rhonchi Gastrointestinal: soft, non-tender, non-distended, normal bowel sounds Extremities: no cyanosis, no clubbing, no edema Psychiatric: normal affect, A&O x 3 Hosp A/P - Plan DVT proph w/lovenox Severe Sepsis due to Rt sided Pneumonia ?Gram negatives, r/o Aspiration Lactic acidosis Obesity BMI 38 DM2 HTN CKD 4 [id number] HLD PLAN: Cont Levaquin Add Zosyn for possible Aspiration Consult ID AM labs DC PM Lantus Cont sliding scale Cont Metoprolol/Procardia Cont other meds
[2019-02-10] MEDS ORDERED: NIFEdipine XL 30 MG TAB PO SCH (14:30)
[2019-02-10] MEDS ORDERED: Piperacillin/Tazobactam 3.375 GM in Sodium Chloride 0.9% 100 ML IVPB SCH (15:00)
[2019-02-10] MEDS: Gabapentin 300 MG CAP PO SCH (19:18)
[2019-02-10] MEDS ORDERED: Saccharomyces boulardii 250 MG CAP PO SCH (21:00)
--- NOTE | 2019-02-10 22:05 | CON ---
DATE OF CONSULTATION: 02/10/2019 REASON FOR CONSULTATION: Pneumonia. HISTORY OF PRESENT ILLNESS: A 68-year-old patient who has a history of hypothyroidism, type 2 diabetes with nephropathy, CKD stage 3 to 4, who was admitted with new onset of anorexia, weakness, and cough. She was febrile on arrival, maximum temperature 102. Lung exam was abnormal and the chest x-ray showed right-sided pneumonia. She had been started on Levaquin and Zosyn with improvement. Right now, she is getting ready for bathing and she denies any headaches. No visual symptoms, sore throat, odynophagia or dysphagia. Cough has improved. No hemoptysis. No chest pain or dyspnea. No abdominal pain. Voiding without difficulty. No diarrhea. No genitourinary symptoms. No joint symptoms or neurological. She does have marked hearing impairment, which is chronic. PAST MEDICAL HISTORY: Type 2 diabetes, hypertension, hyperlipidemia, hearing impairment, CKD stage 3-4. SURGICAL HISTORY: Cochlear implant, , cholecystectomy, gastric sleeve. ALLERGIES: 1. AZITHROMYCIN. 2. IODINE. MEDICATIONS: 1. Currently she is receiving p.r.n. medications. Inhalers. 2. Lipitor. 3. Lovenox. 4. Neurontin. 5. Glucagon. 6. Insulin. 7. Levofloxacin, adjusted for renal function. Zosyn. FAMILY HISTORY: Noncontributory. SOCIAL HISTORY: Never smoker. Lives with in the area. PHYSICAL EXAMINATION: VITAL SIGNS: Essentially normal, T-max 99, some elevation of systolic blood pressure. SKIN: Peripheral IV access. The patient is voiding in the toilet. LYMPH: No lymphadenopathy. HEENT: Ocular movements conjugate. Sclerae white. Pupils are equal. Oral cavity normal. NECK: Supple. No jugular venous distention. LUNGS: With egophony and some crackles in the right anterior lower chest. S1-S2 regular rate. ABDOMEN: Soft, not distended or tender. No ascites. No bladder distention, no joint inflammatory activity. Moves extremities equally. Plantar responses are flexor. No edema. NEUROLOGIC: Awake, oriented, follows commands. Severe hearing impairment. Communication had to be carried out by writing. LABORATORY DATA: WBC count 8.4 and 7.6, hemoglobin 10.9, MCV 90, platelets 200, 85% neutrophils. Sodium 139, creatinine 2.40. The lowest was 1.48 in 2012 steadily deteriorated since liver profile within normal limits. Albumin 3.4. Urinalysis with 300 protein. Microbiology with negative influenza. Blood cultures and urine culture. Chest x-ray with right-sided pneumonia. ASSESSMENT: 1. Type 2 diabetes with diabetic nephropathy with nephrotic syndrome. 2. Community-acquired pneumonia. DISCUSSION: The usual pathogens particularly Streptococcus pneumonia are considered. She is responding clinically and we will go and discontinue Zosyn. I believe she would be eligible for discharge planning starting tomorrow. She already had a vaccination for Streptococcus pneumoniae and influenza. Job ID: [id number]
[2019-02-11] MEDS: Levothyroxine Sodium 100 MCG TAB PO SCH (05:09)
[2019-02-11 05:12] LABS: ALT (SGPT) 15 U/L (8-55); AST (SGOT) 16 U/L (5-34); Albumin 2.7 g/dL (3.4-4.8); Alkaline Phosphatase 68 U/L (40-110); Anion Gap 13 mmol/L (10-20); BUN (Urea Nitrogen) 36 mg/dL (9.8-20.1); Bilirubin, Total 0.3 mg/dL (0.2-1.2); Calc. Creatinine Clearance 31 mL/min (70-130); Calcium 8.2 mg/dL (7.8-10.44); Carbon Dioxide 19 mmol/L (23-31); Chloride 110 mmol/L (98-107); Estimated GFR-MDRD 18; Globulin 2.8 g/dL (2.4-3.5); Glucose 93 mg/dL (80-115); Magnesium 1.8 mg/dL (1.6-2.6); Potassium 4.5 mmol/L (3.5-5.1); Protein, Total 5.5 g/dL (6.0-8.3); Sodium 137 mmol/L (136-145)
[2019-02-11 05:30] LABS: Eosinophils 1 % (0-10); Hemoglobin 8.5 g/dL (12.0-16.0); Lymphocytes 20 % (21-51); MDiff Complete? YES; Mean Corpuscular HGB CONC 33.2 g/dL (32.0-36.0); Mean Corpuscular Hemoglobin 29.9 pg (27.0-31.0); Mean Corpuscular Volume 90.2 fL (78.0-98.0); Mean Platelet Volume 7.7 fL (7.4-10.4); Monocytes 3 % (0-10); Neutrophil 76 % (42-75); Platelet Count 169 thou/uL (130-400); Platelet Morphology Comment Appears Adequate; Platelet Satellitism SLIGHT; RBC Distribution Width 15.6 % (11.5-14.5); Red Blood Cell (RBC) Count 2.85 mill/uL (4.20-5.40); White Blood Cell (WBC) Count 6.6 thou/uL (4.8-10.8)
--- NOTE | 2019-02-11 08:01 | RAD ---
TWO VIEWS CHEST: DATE: 02/11/2019. PROVIDED CLINICAL HISTORY: Pneumonia. FINDINGS: Comparison 02/09/2019. The lungs are hypoinflated, limiting assessment. There is persistent bibasil ar airspace disease, right greater than left. Development of blunting of the right costophrenic angle compatible with pleural fluid. No evidence for pneumothorax. Cardiac silhouette has not definitely changed. Vascular calcification is seen. IMPRESSION: Hypoinflated exam with persistent airspace disease and development of right pleural fluid. POS: OFF
[2019-02-11] MEDS ORDERED: Insulin Glargine 10 UNITS in Pre-Filled Syringe 1 EACH SC SCH (09:00)
[2019-02-11] MEDS: Atorvastatin Calcium 40 MG TAB PO SCH (09:38)
[2019-02-11] MEDS: Enoxaparin Sodium 30 MG/0.3 ML SYRINGE SC SCH (09:38)
[2019-02-11] MEDS: NIFEdipine XL 60 MG TAB PO SCH (09:39)
[2019-02-11] MEDS: Metoprolol Tartrate 50 MG TAB PO SCH (09:39)
--- NOTE | 2019-02-11 10:35 | PRG ---
DATE OF SERVICE: 02/11/2019 SUBJECTIVE: A 68-year-old female, being seen for acute kidney injury. The patient denied any nausea, vomiting, or chest pain. OBJECTIVE: See above. Awake, alert, in no acute distress. VITAL SIGNS: Afebrile, pulse 94, breathing 16, and blood pressure 134/58. GENERAL APPEARANCE AND MENTAL STATUS: Fair. HEAD/NECK: Normocephalic. Atraumatic. EYES: EOMI. No deformity. EARS: Clear. No ulcers. NOSE: Intact. No lesions. MOUTH: Clear. No discharge. THROAT: Clear. No exudate. LUNGS: Clear. No crackles. CARDIAC: S1, S2. No rub. ABDOMEN: Benign. Bowel sounds positive. GENITALIA/RECTUM: Coppola absent. BACK/EXTREMITIES: Edema 0+. NEUROLOGICAL: Alert and motor intact. SKIN: LYMPHATICS: LABORATORY DATA: Reviewed. ASSESSMENT AND PLAN: 1. Chronic kidney disease, stage 4, stable. 2. Hypertension, stable. 3. Anemia, stable. Medication based on GFR appropriate. 4. Chronic kidney disease due to diabetic nephropathy, can restart CORAL as an outpatient. Job ID: [id number]
[2019-02-11 13:55] VITALS: BP 148/67; TEMP 98.6
--- NOTE | 2019-02-12 13:52 | DIS ---
DATE OF ADMISSION: 02/09/2019 DATE OF DISCHARGE: 02/11/2019 DISCHARGE DISPOSITION: Home. FOLLOWUP: 1. Follow up with primary care physician, Dr. Joseph, in 1 week. 2. Follow up with Infectious Disease, Dr. Rodriguez, as well as Gastroenterology, Dr. Bob Hall in 2 weeks. ALLERGIES: THE PATIENT IS ALLERGIC TO AZITHROMYCIN AND IODINE. DISCHARGE MEDICATIONS: 1. Levaquin 250 mg daily for next 5 days. 2. Protonix 40 mg daily. 3. Florastor 250 mg daily. 4. All other home medications were left unchanged. A repeat chest x-ray after 4 weeks is recommended. Primary care physician advised to follow. The patient was seen and examined on the day of discharge. Denies any new complaints. BRIEF HOSPITAL COURSE: The patient is a 68-year-old female with diabetes mellitus type 2, hypertension, and hyperlipidemia, presented to the emergency room on February 09, 2019, with generalized weakness, nausea, dizziness, and fever. Initial vital signs in the emergency room showed temperature of 102.8 with blood pressure of 181/85, pulse rate of 113, respirations of 18 with O2 saturation of 85% on room air. After she settled, her O2 saturation improved. Her EKG showed nonspecific ST-T wave changes. Chest x-ray was consistent with extensive right-sided pneumonia. She was monitored on the telemetry unit. She was started on broad-spectrum antibiotics. Speech therapy also evaluated the patient to rule out swallow dysfunction. The patient was evaluated by Dr. Rodriguez, who recommended changing antibiotics to Levaquin. Antibiotics were dosed according to the GFR. Her symptoms have significantly improved. Her temperature at the day of discharge is 98.6 with O2 saturation of 95% on room air. She has been cleared by consultants for discharge. She was advised to follow up with Gastroenterology as outpatient due to persistent heartburn. A prescription for Protonix was also provided for the patient. She may benefit from EGD to rule out esophageal stricture per Speech Therapy. A repeat chest x-ray after 4 weeks is recommended. SIGNIFICANT LABS: Lactic acid on admission 2.3, repeat was 1.4. Maximum troponin was 0.036. Creatinine of 2.57. Baseline creatinine is around 2.1. Repeat creatinine after 1 to 2 weeks is recommended. Blood cultures were negative. Influenza testing was negative. Urine cultures were negative. FINAL DIAGNOSES: 1. Severe sepsis due to extensive right-sided pneumonia, suspected gram-negative organism. 2. Lactic acidosis secondary to sepsis. 3. Diabetes mellitus type 2. 4. Hypertension. 5. Chronic kidney disease, stage 4 with mild acute kidney injury. 6. Hard of hearing. 7. Hyperlipidemia. 8. Obesity with a BMI of 38. 9. Chronic anemia. 10. Chronic metabolic acidosis secondary to renal failure. 11. Type 2 myocardial infarction present on admission. PLAN: Plan of care was discussed with the patient and the family in detail. They stated understanding. Job ID: [id number]
== END 2019-02-11 14:20 | disposition home or self-care (01) | DRG 871 ==
LOC: ERS 13:26 → 2NO 17:32
PROVIDERS: ADMIT Internal Medicine; ATTEND Internal Medicine
DX: A41.50 Gram-negative sepsis, unspecified (principal); J15.6 Pneumonia due to other Gram-negative bacteria; I21.A1 Myocardial infarction type 2; N18.4 Chronic kidney disease, stage 4 (severe); E87.2 Acidosis; N17.9 Acute kidney failure, unspecified; R65.20 Severe sepsis without septic shock; E78.5 Hyperlipidemia, unspecified; E78.00 Pure hypercholesterolemia, unspecified; E11.22 Type 2 diabetes mellitus with diabetic chronic kidney disease; E66.9 Obesity, unspecified; D63.1 Anemia in chronic kidney disease; I10 Essential (primary) hypertension; Z90.49 Acquired absence of other specified parts of digestive tract; Z98.84 Bariatric surgery status; Z88.1 Allergy status to other antibiotic agents; Z91.041 Radiographic dye allergy status; Z79.4 Long term (current) use of insulin; Z79.899 Other long term (current) drug therapy; Z68.38 Body mass index [BMI] 38.0-38.9, adult; Z28.21 Immunization not carried out because of patient refusal
CPT/HCPCS: 36415; 36416; 71045; 71046; 80048; 80053; 81003; 81015; 82553; 83605; 83690; 83735; 83880; 84484; 85025; 87040; 87086; 87804; 93005; 94640; A4353; J0360; J1650; J1815; J1956; J2543; J3490; J7620

== ENCOUNTER 2019-03-18 13:37 | Inpatient (IN) | payer MEDICARE ==
--- NOTE | 2019-03-18 14:01 | RAD ---
2 views chest: 03/18/2019 COMPARISON: 02/11/2019 HISTORY: Cough FINDINGS: No pneumothorax. Heart and mediastinal contours are stable. There is pulmonary vascular con gestion. There is central interstitial and alveolar opacity within both lungs. Blunting of the costophrenic angle suggests small bilateral pleural effusions. IMPRESSION: Pulmonary vascular congestion with interstitial and alveolar opacity and small bilateral pleural effusions suggest pulmonary edema. Infection or aspiration cannot be excluded. Recommend follow-up imaging to document resolution.
[2019-03-18 14:24] LABS: Hemoglobin 9.4 g/dL (12.0-16.0); Mean Corpuscular HGB CONC 32.6 g/dL (32.0-36.0); Mean Corpuscular Hemoglobin 29.8 pg (27.0-31.0); Mean Corpuscular Volume 91.3 fL (78.0-98.0); Mean Platelet Volume 8.2 fL (7.4-10.4); Platelet Count 221 thou/uL (130-400); RBC Distribution Width 14.9 % (11.5-14.5); Red Blood Cell (RBC) Count 3.17 mill/uL (4.20-5.40); White Blood Cell (WBC) Count 11.1 thou/uL (4.8-10.8)
[2019-03-18 14:50] LABS: Band 1 % (5-11); Lymphocytes 5 % (21-51); MDiff Complete? YES; Monocytes 4 % (0-10); Neutrophil 89 % (42-75); Platelet Morphology Comment Appears Adequate; Polychromasia SLIGHT = 2-3 cells (100X) (0-2/hpf)
[2019-03-18 16:38] LABS: ALT (SGPT) 13 U/L (8-55); AST (SGOT) 15 U/L (5-34); Albumin 3.1 g/dL (3.4-4.8); Alkaline Phosphatase 93 U/L (40-110); Anion Gap 17 mmol/L (10-20); BUN (Urea Nitrogen) 39 mg/dL (9.8-20.1); Bilirubin, Total 0.4 mg/dL (0.2-1.2); Calc. Creatinine Clearance 0 mL/min (70-130); Calcium 8.1 mg/dL (7.8-10.44); Carbon Dioxide 15 mmol/L (23-31); Chloride 107 mmol/L (98-107); Estimated GFR-MDRD 13; Globulin 3.4 g/dL (2.4-3.5); Glucose 122 mg/dL (80-115); Potassium 4.3 mmol/L (3.5-5.1); Protein, Total 6.5 g/dL (6.0-8.3); Sodium 135 mmol/L (136-145)
[2019-03-18 17:53] LABS: Bilirubin Negative (Negative); Blood, Urine Trace (Negative); Clarity Turbid (Clear); Glucose, Urine (Dipstick) 50 mg/dL (Negative); Leukocyte Negative Leu/uL (Negative); Nitrite Negative (Negative); Protein, Urine (Dipstick) 300 mg/dL (Neg-Trace); RBC/HPF 0-3 HPF (0-3); Urobilinogen Normal mg/dL (Less than 2)
[2019-03-18 18:01] LABS: Bacteria/HPF Rare-Few HPF (None Seen); Renal Epithelial 0-3 HPF (None Seen); Transitional Epithelial 0-3 HPF (None Seen)
[2019-03-18] MEDS ORDERED: cefTRIAXone\\ROCEPHIN 2 GM VIAL ONE (18:22)
[2019-03-18] MEDS ORDERED: Acetaminophen 650 MG Suppository PR PRN (20:12)
[2019-03-18] MEDS: Famotidine/PF 20 mg/2ml Vial SLOW IVP SCH (20:37)
[2019-03-18] MEDS: Sodium Chloride 0.45% 1,000 ML IV SCH (20:37)
[2019-03-18 21:05] VITALS: BMI 36.2
[2019-03-18] MEDS ORDERED: Dextrose 5% in Water 1,000 ML IV PRN (22:28)
[2019-03-18] MEDS ORDERED: HumaLOG 300 UNITS/3 ML VIAL SC PRN (22:28)
[2019-03-18] MEDS ORDERED: Dextrose 50% Abboject 50 ML SYRINGE SLOW IVP PRN (22:28)
--- NOTE | 2019-03-19 00:42 | CON ---
DATE OF CONSULTATION: 03/18/2019 CONSULTING PHYSICIAN: Jaleel Cabrera MD REASON FOR CONSULTATION: Acute kidney injury. REASON FOR ADMISSION: Weak and fever. HISTORY OF PRESENT ILLNESS: A 68-year-old female with history of type 2 diabetes, hypertension, hyperlipidemia, came to the hospital with fever, was found to have elevated creatinine. She does follow with Dr. Balderas. No chest pain or palpitation. No nausea or vomiting reported to me. PAST MEDICAL HISTORY: Positive for type 2 diabetes, hypertension, hyperlipidemia, CKD. PAST SURGICAL HISTORY: Cochlear implant, , cataract surgery, cholecystectomy, gastric sleeve. HOME MEDICATION: Reviewed. ALLERGIES: AZITHROMYCIN AND IODINE. SOCIAL HISTORY: No smoking, alcohol, or illicit drug use. FAMILY HISTORY: No history of kidney disease. REVIEW OF SYSTEMS: CONSTITUTIONAL: Negative for weight loss or gain, ability to conduct usual activities. SKIN: Negative for rash, itching. EYES: Negative for double vision, pain. ENT/MOUTH: Negative for nose bleeding, neck stiffness, pain, tenderness. CARDIOVASCULAR: Negative for palpitations, dyspnea on exertion, orthopnea. RESPIRATORY: Negative for shortness of breath, wheezing, cough, hemoptysis, fever or night sweats. GASTROINTESTINAL: Negative for poor appetite, abdominal pain, heartburn, nausea, vomiting, constipation, or diarrhea. GENITOURINARY: Negative for urgency, frequency, dysuria, nocturia. MUSCULOSKELETAL: Negative for pain, swelling. NEUROLOGIC/PSYCHIATRIC: Negative for anxiety, depression. ALLERGY/IMMUNOLOGIC: Negative for skin rash, bleeding tendency. Rest all negative review of systems. PHYSICAL EXAMINATION: GENERAL: This is a well-built female, in no apparent distress. VITAL SIGNS: Temperature 98.2, pulse 89, respirations 18, blood pressure 161/71. HEENT: Atraumatic, normocephalic. Oral mucosa is moist. NECK: Supple. CV: S1, S2. Rate and rhythm regular. RESPIRATORY: Clear. GASTROINTESTINAL: Abdomen is soft. MUSCULOSKELETAL: 1+ edema. DERMATOLOGIC: No skin rash. NEUROLOGIC: Alert and awake. PSYCHIATRIC: Mood and affect normal. LABORATORY DATA: Hemoglobin is 9.4, potassium 4.3, BUN is 39, creatinine is 3.5 from baseline of 2.5. ASSESSMENT AND PLAN: 1. Acute kidney injury on chronic kidney disease. Continue supportive care. Continue antibiotics and hydration as tolerated. Avoid nephrotoxins. Renally dose all medications. 2. Anemia, chronic. 3. History of hypertension and hyperlipidemia, mild. 4. Hypoalbuminemia. 5. Pyuria. Follow up cultures. 6. Continue IV fluids and avoid nephrotoxins. We will follow. Job ID: [id number]
--- NOTE | 2019-03-19 03:40 | HP ---
TIME OF ASSESSMENT: 1900 hours. PRIMARY CARE PHYSICIAN: Dr. Joseph. CHIEF COMPLAINT: Generalized weakness and shortness of breath. HISTORY OF PRESENT ILLNESS: Ms. Porter is a 68-year-old woman who reports a 2-day history of persistent cough, some slight shortness of breath and a temperature at home of 100.3. On ED notes, it was stated that she had a home temp of 103; however, this was incorrect and the patient states the maximum temperature she had at home was 100.3. She took Tylenol for this. Reports that the cough is productive for slightly yellow to clear sputum. She also complains of urinary frequency. She has also noted urinary urgency and some mild discomfort, but denies any significant dysuria. Denies having any chest pain. No abdominal pain. All other review of systems are negative. In the emergency department, she had a temperature of 100.3 and saturations of 95% on room air; therefore, put on 2 L of oxygen. The patient states she does not use oxygen at home. She had an EKG done, which showed normal sinus rhythm with prolonged QTc. She was given 2 L of normal saline. Also given Rocephin and doxycycline for suspected pneumonia based on initial evaluation of chest x-ray and fever. Final report of the chest x-ray shows pulmonary vascular congestion with interstitial and alveolar opacity and small bilateral pleural effusion suggesting pulmonary edema. Her x-ray states infection or aspiration cannot be excluded. Followup imaging was advised. She had laboratory studiesdone that were notable for white count of 11.1, hemoglobin 9.4, hematocrit 28.9, platelets 221, neutrophils 89. She has a reduce GFR of 13 compared to 18 in January. Her creatinine is 3.57 compared to 2.57 a month ago. LFTs are unremarkable. Her BNP was elevated at 226 compared to 181 in January. Urinalysis was done showing a turbid appearance with trace blood, 4 to 6 white blood cells, 4 to 6 squamous epithelial cells, 0 to 3 transitional epithelial cells and rare to few bacteria. ALLERGIES: 1. AZITHROMYCIN. 2. IODINE. CURRENT MEDICATIONS: 1. Aspirin. 2. Atorvastatin. 3. Azelastine. 4. Calcium carbonate. 5. Vitamin D3. 6. Trulicity. 7. Gabapentin. 8. Vascepa. 9. Insulin. 10. Synthroid. 11. Liothyronine. 12. Metoprolol. 13. Nifedipine. 14. Omeprazole. 15. Sertraline. 16. Vitamin B complex. PHYSICAL EXAMINATION: GENERAL: The patient appears generally unwell, but in no acute distress. VITAL SIGNS: Temperature 98.2, pulse 80, respirations 18, blood pressure 105/66, O2 sats 95% on room air. HEENT: Normocephalic and atraumatic. Pupils are equal, round, and reactive to light. Sclerae without icterus. Oropharynx is clear. NECK: Supple. LUNGS: Without wheezes, rales, or rhonchi. CARDIAC: Regular rate and rhythm. ABDOMEN: Soft, obese, nontender, and nondistended. Normoactive bowel sounds present. No guarding or rigidity. EXTREMITIES: No lower leg swelling or edema. NEUROLOGIC: Alert and oriented x3. The patient is hard of hearing, but able to read lips and hear with the cochlear implant. No neuro deficits. Alert and oriented x3. SKIN: Warm and dry. INVESTIGATIONS: As mentioned above in HPI. IMPRESSION AND PLAN: Ms. Porter is a 68-year-old woman, who presents with complaints of feeling generally unwell, cough, and some shortness of breath for 2 days with a temperature. She is being admitted for management of the following. 1. Presumed pneumonia. Initial review of chest x-ray had been suspicious for pneumonia. The patient is started on IV antibiotics. She did have an elevated BNP and on report of the chest x-ray was said to have findings consistent with congestive heart failure/pulmonary edema. She does have significantly reduced renal function at baseline, which is worse today from baseline. The patient's case was discussed with Dr. Cabrera, who advised holding on any Lasix and holding on any further CT imaging. He felt that due to the fever, she likely had an infectious process rather than congestive heart failure exacerbation. He advised to continue IV antibiotics. Further management as per Day Team. We would consider CT chest imaging in the morning. 2. Acute kidney injury/chronic kidney disease. Consultation placed to Nephrology. Continue to monitor renal function. The patient given 2 L of normal saline in the emergency department. We will hold off on any further fluids. 3. Hypertension. Hold antihypertensives as blood pressure is on the lower side at this present time. Monitor blood pressure. 4. Type 2 diabetes mellitus. Resume home medications once verified. Monitor blood glucose. Initiate sliding scale. 5. Hyperlipidemia. Resume home medications once verified. 6. Gastrointestinal prophylaxis with famotidine. 7. Deep venous thrombosis prophylaxis with mechanical SCDs. 8. Code status full. Surrogate decision maker is her , Stewart Porter. The patient's case was discussed with Dr. Cabrera who has advised plan as above. Job ID: [id number]
[2019-03-19] MEDS: Sodium Chloride 0.45% 1,000 ML IV SCH (04:17)
[2019-03-19] MEDS: Levothyroxine Sodium 125 MCG TAB PO SCH (05:19)
[2019-03-19 07:02] LABS: Mean Corpuscular HGB CONC 32.2 g/dL (32.0-36.0); Mean Corpuscular Hemoglobin 28.9 pg (27.0-31.0); Mean Corpuscular Volume 89.7 fL (78.0-98.0); Mean Platelet Volume 7.2 fL (7.4-10.4); Platelet Count 212 thou/uL (130-400); RBC Distribution Width 14.5 % (11.5-14.5); Red Blood Cell (RBC) Count 2.79 mill/uL (4.20-5.40); White Blood Cell (WBC) Count 6.9 thou/uL (4.8-10.8)
[2019-03-19 07:16] LABS: Anion Gap 14 mmol/L (10-20); BUN (Urea Nitrogen) 34 mg/dL (9.8-20.1); Calc. Creatinine Clearance 25 mL/min (70-130); Calcium 7.6 mg/dL (7.8-10.44); Carbon Dioxide 17 mmol/L (23-31); Chloride 110 mmol/L (98-107); Estimated GFR-MDRD 14; Glucose 86 mg/dL (80-115); Potassium 3.9 mmol/L (3.5-5.1); Sodium 137 mmol/L (136-145)
[2019-03-19 07:44] LABS: Band 2 % (5-11); Lymphocytes 18 % (21-51); MDiff Complete? YES; Monocytes 8 % (0-10); Neutrophil 72 % (42-75); Platelet Morphology Comment Appears Adequate; Platelet Satellitism SLIGHT; Polychromasia SLIGHT = 2-3 cells (100X) (0-2/hpf)
[2019-03-19] MEDS: NIFEdipine XL 60 MG TAB PO SCH (08:19)
[2019-03-19] MEDS: Aspirin 81 mg Enteric Coated Tablet PO SCH (08:20)
[2019-03-19] MEDS: Atorvastatin Calcium 40 MG TAB PO SCH (08:21)
[2019-03-19] MEDS: Metoprolol Tartrate 50 MG TAB PO SCH ×2 (08:21→21:11)
[2019-03-19] MEDS: Stress 600 With Zinc 1 TAB PO SCH (08:23)
[2019-03-19] MEDS: Calcium Carbonate 500 MG TAB PO SCH (08:23)
[2019-03-19] MEDS: Liothyronine Sodium 5 MCG TAB PO SCH (08:23)
[2019-03-19] MEDS: Insulin Glargine 20 UNITS in Pre-Filled Syringe 1 EACH SC SCH (08:29)
[2019-03-19] MEDS: Azelastine 137 MCG/Spray 30 ML NS SCH ×2 (08:55→21:10)
[2019-03-19] MEDS ORDERED: INSULIN GLARGINE HUM REC ANLOG 20 UNIT SC SCH (09:00)
--- NOTE | 2019-03-19 10:13 | CT ---
CT THORAX WITHOUT IV CONTRAST: INDICATIONS: Concern for pneumonia with a history of cough. FINDINGS: There are small bilateral pleural effusions. Heart size appears within normal limits. There are quinton l annular calcifications. There is a moderate sized hiatal hernia with post surgical change seen near the gastroesophageal junction, which may reflect sequela of an unraveled Eugenio fundoplication. Ther e are some retained medicinal tablets within a moderately distended esophagus. There is air space [place] seen within the perihilar regions with a more prominent area of consolidation involving the left upper lobe. The visualized adrenal glands are unremarkable appearing. The gallbladder is surgically absent. There is diffuse osteopenia. There is scattered degenerative and osteoarthritic change. IMPRESSION: 1. Patchy perihilar opacities, most suspicious for pneumonia. There are more prominent areas of conso lidation in the left upper lobe. 2. Small bilateral pleural effusions. 3. Moderate hiatal hernia with moderate distention of the esophagus. There are retained medicinal tab lets within the esophagus, suggesting reflux or dysmotility. POS: TPC
[2019-03-19] MEDS: Icosapent Ethyl 1 GM CAPSULE PO SCH ×2 (10:39→23:40)
[2019-03-19] MEDS: Acetaminophen 325 MG TAB PO PRN ×2 (13:30→22:50)
--- NOTE | 2019-03-19 13:53 | CON ---
DATE OF CONSULTATION: 03/19/2019 This encompassed 70 minutes of time, greater than 50% of that time involved in direct the patient's care. REASON FOR CONSULTATION: Pneumonia. HISTORY OF PRESENT ILLNESS: The patient is a 68-year-old female, who presented to the hospital today. Yesterday, she had a fever up to 103 at home. She was having coughing and congestion. She was put on some antibiotics last night and she feels better today. A CT of the chest shows bilateral upper lobe infiltrates, along with that she has bilateral small effusions. PAST MEDICAL HISTORY: 1. She had pneumonia and was hospitalized in January here. Her says that she got better afterwards and was sent home and completely recovered. 2. Type 2 diabetes mellitus. 3. Hypertension. 4. Hyperlipidemia. 5. Hearing impairment. 6. Chronic kidney disease. PAST SURGICAL HISTORY: 1. Cochlear implant. 2. C-sections for cholecystectomy. 3. Gastric sleeve surgery. ALLERGIES: AZITHROMYCIN AND IODINE. MEDICATIONS: Prior to admission, list in chart include; 1. Aspirin. 2. Atorvastatin. 3. Astelin nasal spray. 4. Trulicity. 5. Gabapentin. 6. Vascepa. 7. Insulin. 8. Synthroid. 9. Liothyronine. 10. Metoprolol. 11. Nifedipine. 12. Omeprazole. 13. Sertraline. 14. Vitamin B complex. REVIEW OF SYSTEMS: Twelve-point review of systems is otherwise negative. PHYSICAL EXAMINATION: VITAL SIGNS: Temperature 98.3. No recorded fever since admission. Pulse 83, respirations 16, O2 saturation 96% on 2 L, and blood pressure 184/77. GENERAL: This patient is awake, alert, sitting up, eating lunch, appears in no distress. HEENT: Pupils are reactive. Sclerae are anicteric. Oropharynx is clear. NECK: No adenopathy or JVD. LUNGS: Clear without wheezing or rhonchi. CARDIOVASCULAR: S1 and S2 regular with a 2/6 systolic murmur. ABDOMEN: Soft, obese, nontender, and nondistended. EXTREMITIES: No clubbing or cyanosis. Trace edema. LABORATORY DATA: Sodium 137, potassium 3.9, chloride 110, CO2 of 17, BUN 34, creatinine 3.1, and glucose 86. White blood cell count 6.9, hematocrit 25.0, and platelet count 212. IMAGING DATA: I reviewed the CT scan personally. ASSESSMENT: Bilateral upper lobe pneumonia with small pleural effusions. Differential be pneumonia. Also, congestive heart failure can be a consideration given bilateral infiltrates and pleural fluid. RECOMMENDATIONS: In addition to the antibiotics, I would recommend checking an echocardiogram. This looks to have already been ordered, but not read. At some point, she can transition over to oral antibiotics and I would treat her for a total of 10 days at the time of discharging and have her get a followup chest x-ray in 1 month. Job ID: [id number]
--- NOTE | 2019-03-19 13:57 | PRG ---
DATE OF SERVICE: 03/19/2019 SUBJECTIVE: Patient was seen and examined at bedside and overnight events noted. Patient denies any shortness of breath or chest pain or palpitation. No history of nausea or vomiting or diarrhea or fever or chills or cramps. OBJECTIVE: GENERAL: This is an obese female, in no apparent distress. VITAL SIGNS: Temperature 98.3. Heart rate 83. Respiratory rate 16. Blood pressure 184/77. HEENT: Atraumatic, normocephalic. Oral mucosa is moist NECK: Supple. CARDIOVASCULAR: S1, S2 heard. Rate and rhythm regular. RESPIRATORY: Clear to auscultation. GASTROINTESTINAL: Abdomen is soft. MUSCULOSKELETAL: No tenderness. No edema. DERMATOLOGIC: No skin rash. NEUROLOGIC: Alert and awake and oriented X3. No focal neurologic deficits. Moving all the extremities. PSYCHIATRIC: Mood and affect normal. LABORATORY DATA: Potassium is 3.9, BUN is 34, creatinine is 3.1 from 3.5 yesterday. ASSESSMENT AND PLAN: 1. Acute kidney injury on chronic kidney stage 4 with slight improvement in creatinine. 2. Anemia, chronic. 3. Hypoalbuminemia. 4. Pyuria. 5. History of hypertension. We will monitor renal function, which seems to be stable at this point. Avoid nephrotoxins including contrast. Continue antibiotics and supportive care, IV fluids as tolerated. Job ID: [id number]
--- NOTE | 2019-03-19 16:06 | PDOC.HOSPP ---
- Subjective Encounter Date: 03/19/19 Encounter Time: 07:00 Subjective: has sob, no cough or expectoration no fever now at bedside - Objective Vital Signs & Weight: Vital Signs (12 hours) Temp Pulse Pulse Resp BP BP BP 03/19/19 13:29 152/77 H 03/19/19 12:06 83 184/77 H 03/19/19 12:00 98.3 F 83 16 03/19/19 10:03 03/19/19 08:19 88 146/72 H 03/19/19 08:15 03/19/19 07:35 98.6 F 88 16 146/72 H 03/19/19 04:33 129/70 03/19/19 04:17 99.0 F 83 18 113/46 L Pulse Ox Pulse Ox Pulse Ox Pulse Ox 03/19/19 13:29 03/19/19 12:06 95 91 L 96 03/19/19 12:00 96 03/19/19 10:03 94 L 03/19/19 08:19 03/19/19 08:15 98 03/19/19 07:35 98 03/19/19 04:33 03/19/19 04:17 95 Weight Admit Weight 211 lb Weight 211 lb I&O: 03/18/19 03/19/19 03/20/19 06:59 06:59 06:59 Intake Total 1320 Balance 1320 Result Diagrams: 03/19/19 05:56 03/19/19 05:56 Additional Labs: Accuchecks 03/19/19 03/19/19 03/18/19 12:25 04:18 21:01 POC Glucose 104 108 86 Hospitalist ROS - Medication Medications: Active Medications Generic Name Dose Route Start Last Admin Trade Name Freq PRN Reason Stop Dose Admin Acetaminophen 650 mg 03/18/19 20:12 03/19/19 13:30 Tylenol PO 650 mg Q4H PRN Administration Headache/Fever/Mild Pain (1-3) Aspirin 81 mg 03/19/19 09:00 03/19/19 08:20 Ecotrin PO 81 mg DAILY FLORENCIO Administration Atorvastatin Calcium 40 mg 03/19/19 09:00 03/19/19 08:21 Lipitor PO 40 mg DAILY FLORENCIO Administration Azelastine HCl 0 ml 03/19/19 09:00 03/19/19 08:55 Azelastine NS 2 spr BID FLORENCIO Administration Calcium Carbonate 500 mg 03/19/19 09:00 03/19/19 08:23 Oscal-500 PO 500 mg DAILY FLORENCIO Administration Cholecalciferol 5,000 units 03/19/19 09:00 03/19/19 08:19 Vitamin D3 PO 5,000 units DAILY FLORENCIO Administration Famotidine 20 mg 03/18/19 21:00 03/18/19 20:37 Pepcid SLOW IVP 20 mg QPM FLORENCIO Administration Doxycycline Hyclate 100 mg/ 100 mls @ 100 mls/hr 03/19/19 09:00 03/19/19 08: 56 Sodium Chloride IVPB 100 mls Q12HR FLORENCIO Administration Insulin Glargine 20 units/ 0.2 mls @ 0 mls/hr 03/19/19 09:00 03/19/19 08:29 Miscellaneous Medication SC 0.2 mls QAM FLORENCIO Administration Levothyroxine Sodium 125 mcg 03/19/19 06:00 03/19/19 05:19 Synthroid PO 125 mcg 0600 FLORENCIO Administration Liothyronine Sodium 5 mcg 03/19/19 09:00 03/19/19 08:23 Cytomel PO 5 mcg DAILY FLORENCIO Administration Metoprolol Tartrate 50 mg 03/19/19 09:00 03/19/19 08:21 Lopressor PO 50 mg BID FLORENCIO Administration Miscellaneous Medication 2 gm 03/19/19 09:00 03/19/19 10:39 Vascepa PO 2 gm BID FLORENCIO Administration Multivitamins/Zinc 1 tab 03/19/19 09:00 03/19/19 08:23 Stress 600 With Zinc PO 1 tab DAILY FLORENCIO Administration Nifedipine 120 mg 03/19/19 09:00 03/19/19 08:19 Procardia Xl PO 120 mg DAILY FLORENCIO Administration Sertraline HCl 50 mg 03/19/19 09:00 03/19/19 08:20 Zoloft PO 50 mg DAILY FLORENCIO Administration - Exam General Appearance: awake alert Eye: PERRL, anicteric sclera ENT: no oropharyngeal lesions, moist mucosa Neck: supple, no JVD Heart: RRR, no murmur Respiratory: no wheezes, no rales, rhonchi Gastrointestinal: soft, non-tender, non-distended, normal bowel sounds Extremities: no cyanosis, no edema Neurological: cranial nerve grossly intact, no focal deficits Psychiatric: normal affect, A&O x 3 Hosp A/P (1) PNA (pneumonia) Code(s): J18.9 - PNEUMONIA, UNSPECIFIED ORGANISM Status: Acute Qualifiers: Pneumonia type: due to unspecified organism Laterality: bilateral Lung location: upper lobe of lung Qualified Code(s): J18.9 - Pneumonia, unspecified organism (2) Metabolic acidosis Code(s): E87.2 - ACIDOSIS Status: Chronic (3) Anemia, normocytic normochromic Code(s): D64.9 - ANEMIA, UNSPECIFIED Status: Chronic (4) Anxiety and depression Code(s): F41.9 - ANXIETY DISORDER, UNSPECIFIED; F32.9 - MAJOR DEPRESSIVE DISORDER, SINGLE EPISODE, UNSPECIFIED Status: Chronic (5) Diabetes type 2, controlled Code(s): E11.9 - TYPE 2 DIABETES MELLITUS WITHOUT COMPLICATIONS Status: Chronic Qualifiers: Diabetes mellitus salvage determiner insulin use: with usp use Diabetes mellitus complication detail: with chronic kidney disease Chronic kidney disease stage: stage 4 (severe) (6) Dyslipidemia Code(s): E78.5 - HYPERLIPIDEMIA, UNSPECIFIED Status: Chronic (7) Hypertension Code(s): I10 - ESSENTIAL (PRIMARY) HYPERTENSION Status: Chronic Qualifiers: Hypertension type: essential hypertension Qualified Code(s): I10 - Essential (primary) hypertension (8) Hypothyroidism Code(s): E03.9 - HYPOTHYROIDISM, UNSPECIFIED Status: Chronic (9) Obesity (BMI 30-39.9) Code(s): E66.9 - OBESITY, UNSPECIFIED Status: Chronic (10) CKD (chronic kidney disease) stage 4, GFR 15-29 ml/min Code(s): N18.4 - CHRONIC KIDNEY DISEASE, STAGE 4 (SEVERE) Status: Chronic - Plan is on ceftriaxone and doxy, nebs await echo results has ckd4, likely will have dialstolic dysfunction prior h/o gastric sleeve with post surgical changes near GE junction and esophageal dilation likely chronic issue, will need outpt appt with her bariatric surgeon continue lantus, synthroid, vascepa, lopressor, procardia xl 120mg, asp, lipitor and zoloft hemostable early ambulation to prevent deconditioning also has h/o cochlear implant placed in july of 2018, hearing has improved will likely need epogen with h/o ckd4 and Hb of 8g
[2019-03-19] MEDS: HumaLOG 300 UNITS/3 ML VIAL SC PRN (17:12)
[2019-03-19] MEDS ORDERED: cefTRIAXone\\ROCEPHIN 2 GM in Sodium Chloride 0.9% 100 ML IVPB SCH (20:00)
[2019-03-19] MEDS ORDERED: INSULIN GLARGINE HUM REC ANLOG 16 UNIT SC SCH (21:00)
[2019-03-19] MEDS: Famotidine/PF 20 mg/2ml Vial SLOW IVP SCH (21:10)
[2019-03-19] MEDS: Insulin Glargine 16 UNITS in Pre-Filled Syringe 1 EACH SC SCH (21:14)
[2019-03-20] MEDS: Levothyroxine Sodium 125 MCG TAB PO SCH (06:10)
[2019-03-20] MEDS: Atorvastatin Calcium 40 MG TAB PO SCH (08:58)
[2019-03-20] MEDS: Aspirin 81 mg Enteric Coated Tablet PO SCH (08:58)
[2019-03-20] MEDS: Calcium Carbonate 500 MG TAB PO SCH (08:59)
[2019-03-20] MEDS: Azelastine 137 MCG/Spray 30 ML NS SCH ×2 (08:59→21:04)
[2019-03-20] MEDS: NIFEdipine XL 60 MG TAB PO SCH (09:01)
[2019-03-20] MEDS: Metoprolol Tartrate 50 MG TAB PO SCH ×2 (09:01→21:15)
[2019-03-20] MEDS: Insulin Glargine 20 UNITS in Pre-Filled Syringe 1 EACH SC SCH (09:01)
[2019-03-20] MEDS: Liothyronine Sodium 5 MCG TAB PO SCH (09:01)
[2019-03-20] MEDS: Stress 600 With Zinc 1 TAB PO SCH (09:02)
[2019-03-20] MEDS: Icosapent Ethyl 1 GM CAPSULE PO SCH ×2 (10:33→21:16)
--- NOTE | 2019-03-20 11:42 | PRG ---
DATE OF SERVICE: 03/20/2019 SUBJECTIVE: She states that she is feeling better. She has no acute complaints, but she wants to make sure she is completely better before going home. OBJECTIVE: VITAL SIGNS: Her temperature is 98.4, pulse 77, blood pressure 134/69, and O2 saturation 95%. HEENT: Unremarkable. NECK: No adenopathy or JVD. LUNGS: Fairly clear without wheezing or rhonchi. CARDIAC: S1 and S2. Regular. ABDOMEN: Soft and nontender. EXTREMITIES: No clubbing, cyanosis or edema. DIAGNOSTIC DATA: Her echo showed a depressed EF, but they were unable to quantitate that, and they did not get a good look at the valves. ASSESSMENT: Given the relatively low procalcitonin level in the face of a slightly elevated BNP, I suspect that we are probably dealing with some systolic heart failure in the face of chronic renal insufficiency. RECOMMENDATIONS: I would recommend converting her over to simpler oral antibiotic regimen, I would also recommend strict control of her fluid intake. This may ultimately require coordination between her electrical supervisor and Dr. Dowling, who is her order administrator. No further Pulmonary recommendations at this time. Job ID: [id number]
[2019-03-20] MEDS: HumaLOG 300 UNITS/3 ML VIAL SC PRN (12:34)
--- NOTE | 2019-03-20 13:34 | PRG ---
DATE OF SERVICE: 03/20/2019 SUBJECTIVE: The patient says she feels okay. She did get up with physical therapy. She ambulated without oxygen. I saw her do so and she actually looked reasonably okay. She says she was very short of breath all time. She ays that she has become very lazy in the last couple of years since she retired and that is contributing to her shortness of breath with exertion. She is back on oxygen at the moment, but she does not wear oxygen at home. OBJECTIVE: VITAL SIGNS: Temperature is 98.4, pulse 77, BP 134/69, O2 saturation 95% on 2 L. GENERAL APPEARANCE: Age-appropriate female, obese. No distress. Awake and alert. HEART: Regular rate and rhythm. LUNGS: Clear bilaterally. ABDOMEN: Benign. EXTREMITIES: No cyanosis or clubbing. She has trace edema on the left with some varicosities. Nothing on the right. LABORATORY DATA: Glucose 162. IMPRESSION AND PLAN: 1. Pneumonia. CT scan was most consistent with pneumonia. She had procalcitonin that was 1, which was equivocal. Pulmonology has seen the patient, suspect this is more likely heart failure related. We will take his recommendation, discontinue intravenous antibiotics, change to p.o. Levaquin at renal dosing. 2. Congestive heart failure. She had slight elevation of the BNP. She has slight decreased ejection fraction that could not be further detailed on her echocardiogram complicated by her renal failure as well. She will need further medical management for this. Suspect we will need to come off the Procardia and consider changing to possibly a beta donavan with more specificity like a Coreg, but we will defer that to Cardiology as an outpatient. 3. Metabolic acidosis, chronic, likely secondary to her chronic kidney disease. 4. Chronic kidney disease. Currently, she has [id number] kidney disease and her numbers are presently at stage 5. Nephrology is following and the patient expressed some concerns about her previous followup with Nephrology. She had felt like she was being pushed for dialysis and she has an extreme fear of having to go on dialysis because she watched her father go through dialysis and ultimately have amputations and she watched her sister go through it as well. Therefore, she had the inclination to avoid any further follow up with Nephrology and just let Dr. Granado follow her for that along with her diabetes. I had a long conversation with the patient explaining that she unfortunately does have progressive renal disease and may well end up on dialysis and has other issues such as volume-related concerns that necessitate her following up with Nephrology. 5. Diabetes mellitus type 2, currently well controlled. 6. Chronic anemia secondary to chronic kidney disease. 7. History of anxiety and depression, stable. 8. Dyslipidemia, chronic. Continue on medications. 9. Hypertension, again on calcium channel blockers and beta blockers. 10. Hypothyroidism. Continue usual home medications. 11. Morbid obesity with some related deconditioning, stable. 12. Disposition: Changing to p.o. antibiotics. We will hope to get her discharged tomorrow. Job ID: [id number]
--- NOTE | 2019-03-20 13:41 | PRG ---
DATE OF SERVICE: 03/20/2019 SUBJECTIVE: The patient was seen and examined at bedside and overnight events noted. The patient denies any shortness of breath or chest pain or palpitation. No history of nausea or vomiting or diarrhea or fever or chills or cramps. OBJECTIVE: GENERAL: This is a well-built female, in no apparent distress. VITAL SIGNS: Temperature 98.4, pulse 77, respiratory rate 18, and blood pressure 134/69. HEENT: Atraumatic, normocephalic. Oral mucosa is moist NECK: Supple. CARDIOVASCULAR: S1, S2 heard. Rate and rhythm regular. RESPIRATORY: Clear to auscultation. GASTROINTESTINAL: Abdomen is soft. MUSCULOSKELETAL: No tenderness. No edema. DERMATOLOGIC: No skin rash. NEUROLOGIC: Alert and awake and oriented X3. No focal neurologic deficits. Moving all the extremities. PSYCHIATRIC: Mood and affect normal. LABORATORY DATA: Not done today. ASSESSMENT AND PLAN: 1. Acute kidney injury on chronic kidney stage 4. We will monitor labs. 2. Anemia. 3. Hypoalbuminemia. 4. Pyuria. Follow up cultures. 5. History of hypertension. We will monitor labs. Job ID: [id number]
[2019-03-20] MEDS: Famotidine/PF 20 mg/2ml Vial SLOW IVP SCH (21:04)
[2019-03-20] MEDS: Insulin Glargine 16 UNITS in Pre-Filled Syringe 1 EACH SC SCH (21:05)
[2019-03-21] MEDS: Levothyroxine Sodium 125 MCG TAB PO SCH (05:52)
[2019-03-21 06:53] LABS: Anion Gap 15 mmol/L (10-20); BUN (Urea Nitrogen) 39 mg/dL (9.8-20.1); Calc. Creatinine Clearance 23 mL/min (70-130); Carbon Dioxide 17 mmol/L (23-31); Chloride 113 mmol/L (98-107); Estimated GFR-MDRD 13; Glucose 67 mg/dL (80-115); Potassium 3.9 mmol/L (3.5-5.1); Sodium 141 mmol/L (136-145)
[2019-03-21 08:34] VITALS: BP 147/67; TEMP 98.3
[2019-03-21] MEDS: Aspirin 81 mg Enteric Coated Tablet PO SCH (08:42)
[2019-03-21] MEDS: Atorvastatin Calcium 40 MG TAB PO SCH (08:43)
[2019-03-21] MEDS: Azelastine 137 MCG/Spray 30 ML NS SCH (08:43)
[2019-03-21] MEDS: Calcium Carbonate 500 MG TAB PO SCH (08:44)
[2019-03-21] MEDS: Icosapent Ethyl 1 GM CAPSULE PO SCH (08:45)
[2019-03-21] MEDS: Insulin Glargine 20 UNITS in Pre-Filled Syringe 1 EACH SC SCH (08:46)
[2019-03-21] MEDS: Liothyronine Sodium 5 MCG TAB PO SCH (08:46)
[2019-03-21] MEDS: NIFEdipine XL 60 MG TAB PO SCH (08:47)
[2019-03-21] MEDS: Metoprolol Tartrate 50 MG TAB PO SCH (08:47)
[2019-03-21] MEDS: Stress 600 With Zinc 1 TAB PO SCH (08:48)
--- NOTE | 2019-03-21 14:51 | PRG ---
DATE OF SERVICE: 03/21/2019 SUBJECTIVE: Patient was seen and examined at bedside and overnight events noted. Patient denies any shortness of breath or chest pain or palpitation. No history of nausea or vomiting or diarrhea or fever or chills or cramps. OBJECTIVE: GENERAL: This is a well-built female, in no apparent distress. VITAL SIGNS: Temperature 98.3. Heart rate 81. Respiratory rate 18. Blood pressure 147/67. HEENT: Atraumatic, normocephalic. Oral mucosa is moist NECK: Supple. CARDIOVASCULAR: S1, S2 heard. Rate and rhythm regular. RESPIRATORY: Clear to auscultation. GASTROINTESTINAL: Abdomen is soft. MUSCULOSKELETAL: No tenderness. No edema. DERMATOLOGIC: No skin rash. NEUROLOGIC: Alert and awake and oriented X3. No focal neurologic deficits. Moving all the extremities. PSYCHIATRIC: Mood and affect normal. LABORATORY DATA: Potassium 3.9, BUN is 39, creatinine is 3.5. ASSESSMENT AND PLAN: 1. Acute kidney injury on chronic kidney disease, stage 4, with bump in creatinine. 2. Edema, controlled. 3. Hypertension. 4. Acidosis. 5. Anemia. Labs are close to her baseline. Follow up with Dr. Balderas in 1 to 2 weeks. Job ID: [id number]
--- NOTE | 2019-03-22 10:13 | DIS ---
DATE OF ADMISSION: 03/18/2019 DATE OF DISCHARGE: 03/21/2019 DISCHARGE DIAGNOSES: 1. Acute hypoxic respiratory failure secondary to pneumonia and congestive heart failure. 2. Pneumonia. 3. Congestive heart failure. 4. Metabolic acidosis. 5. Acute on chronic kidney disease stage 4. 6. Diabetes mellitus type 2. 7. Chronic anemia secondary to chronic kidney disease. 8. History of anxiety and depression. 9. Dyslipidemia. 10. Hypertension. 11. Hypothyroidism. 12. Morbid obesity. HISTORY: This patient is a 68-year-old female with a history of chronic kidney disease, who has followed with Nephrology in the past, but reported she had concerns about followup because she felt like she was being pushed toward dialysis and was wanting to have her diabetic doctor, Dr. Granado follow her for that. She presented to the emergency department with temperature of 103 with some associated cough. She had a chest x-ray showing pulmonary vascular congestion with interstitial and alveolar opacities. Small bilateral pleural effusions suggesting pulmonary edema, infection could not be excluded. HOSPITAL COURSE: The patient was noted to have a bit of an elevated BNP and was admitted to the hospital with acute hypoxic respiratory failure what initially appeared to be decompensated heart failure, but also with a febrile component. She was started on antibiotics in the emergency department and those were continued. She was continued on diuretics as well. A CT of the chest showed patchy perihilar opacities most suspicious for pneumonia and some prominent areas consolidation in the left upper lobe. There were small bilateral pleural effusions, moderate hiatal hernia with moderate distention of the esophagus with some retained medicinal tablet of the esophagus suggesting reflux or dysmotility. The patient had history of bariatric procedure and this was felt to be likely chronic in nature. The patient was seen in consultation by Nephrology, who felt the patient had acute on chronic kidney injury and she was monitored as she had diuresis for what appeared to be underlying congestive heart failure, and her renal function was essentially at baseline at the time of discharge. She was seen in consultation by Pulmonology , who felt she more likely had some component of heart failure and recommended that she have aggressive management of fluid intake, which would need to be worked out between Nephrology and her lpn cma. Echocardiogram was obtained, which was a technically difficult study with poor endocardial definition. The EF appeared mildly depressed, but could not be quantified. There were mildly elevated pulmonary pressures. The patient was able to start getting up and ambulating. She reported she was short of breath with ambulating, but we attributed that more to her lack of activity and deconditioning. She appeared to do quite well from my perspective ambulating without the oxygen and was able to come off oxygen entirely. Once she was afebrile, feeling better, saturating well off oxygen, she was felt to be stable for discharge home. DISPOSITION: She is discharged to home. ACTIVITY: As tolerated. DIET: She will be on a heart-healthy, low-sodium, diabetic diet. DISCHARGE MEDICATIONS: She will be on Levaquin 250 mg p.o. daily. She will continue her usual home medications includin. Sertraline 50 mg daily. 2. Metoprolol 50 mg b.i.d. 3. Liothyronine 5 mcg daily. 4. Nifedipine 120 mg daily. 5. Atorvastatin 40 mg daily. 6. Gabapentin 300 mg q.h.s. 7. Vitamin B complex one p.o. daily. 8. Calcium 500 mg daily. 9. Cholecalciferol 5000 units daily. 10. Aspirin 81 mg daily. 11. Vascepa 2 p.o. b.i.d. 12. Azelastine 2 sprays per naris b.i.d. 13. Levothyroxine 125 mcg daily. 14. Toujeo 20 units subcutaneous daily and 16 units q.h.s. 15. Trulicity 1.5 mg q.week. 16. Omeprazole 20 mg daily. FOLLOWUP: She will follow up with Dr. Jean Joseph, Dr. Dat Alcaraz, and Dr. Jaswant Cotton. DISCHARGE INSTRUCTIONS: She can return to the hospital anytime should she have the need to do so. I did assessment counselor the patient at length regarding her renal disease. Certainly, I encouraged her to continue to follow up with Nephrology as there is some concern that she will have continuing difficulty with fluid balance given her renal disease. Time spent in discharge activities was 38 min. Job ID: [id number] [facility]
--- NOTE | 2019-03-23 01:32 | PQF ---
DEVAUGHN ORTEGA DAVID R MD [id number] CLINICAL DOCUMENTATION CLARIFICATION FORM: POST DISCHARGE Addendum to original discharge summary date: ____ Late entry note date: __ DATE: 03/23/19 ATTN: Ayad Nguyen Please exercise your independent, professional judgment in responding to the clarification form. Clinical indicators are provided on the bottom of this form for your review Please check appropriate box(s) to clarify if the following diagnosis has been ruled in or ruled out: Sepsis [ ] Ruled in diagnosis [ ] Continue to treat [ ] Resolved [ x ] Ruled out diagnosis [ ] Cannot rule out diagnosis [ ] Other diagnosis [ ] Unable to determine In addition, please specify: Present on Admission (POA): [ ] Yes [ ] No [ ] Unable to determine For continuity of documentation, please document condition throughout progress notes and discharge summary. Thank You. CLINICAL INDICATORS - SIGNS / SYMPTOMS / LABS ED notes p2 03/18 Pt has had fever 103 and cough since yesterday ED notes p92 03/18 CAP with hypoxia and likely an element of CHF precipitated pulmonary edema as well H&P p1 03/18 reports a 2-day history of persistent cough, some slight SOB and a temperature at home of 100.3 H&P p1 03/18 Her BNP was elevated at 226 H&P p3 03/18 She did elevated BNP and on report of chest x-ray was said have findings consistent with congestive heart failure/pulmonary edema. Wyatt does have significantly reduced renal function at baseline, which is worse today. Advised holding on any lasix and holding on any furtjer CT imaging. [place] that due to the fever, she likely had an infectious process Consult p2 03/19 Dr Alcaraz Bilateral upper lobe pneumonia with small pleural effusions. Also congestive heart failure can be a consideration given bilateral infiltrates and pleural fluids RISK FACTORS ED notes p92 03/18- Sepsis ED notes p92 03/18- Pneumonia , community acquired ED notes p92 03/18- Acute renal Failure H&P p1 03/18 68 year-old woman H&P p3 03/18 Acute kidney injury TREATMENTS JUN 02 IV Rocephin JUN 02 IV fluid bolus Respiratory Panel 03/18 Oxygen on 2L Pulmo Consult 03/19 Dat Rg (This form is maintained as a part of the permanent medical record) 2014 [employer], [employer]. All Rights Reserved [email or web address] [not provided] MTDD
--- NOTE | 2019-03-23 01:34 | PQF ---
DEVAUGHN ORTEGA DAVID R MD [id number] CLINICAL DOCUMENTATION CLARIFICATION FORM: POST DISCHARGE Addendum to original discharge summary date: ____ Late entry note date: __ DATE: 03/23/19 ATTN: Ayad Nguyen Please exercise your independent, professional judgment in responding to the clarification form. Clinical indicators are provided on the bottom of this form for your review Please check appropriate box(s): HEART FAILURE: A. TYPE: [ ] Systolic / HFrEF [ ] Diastolic / HFpEF [ ] Combined Systolic / Diastolic B. ACUITY [ ] Acute [ ] Acute on Chronic [ ] Chronic [ ] Other diagnosis [x ] Unable to determine In addition, please specify: Present on Admission (POA): [ ] Yes [ ] No [ ] Unable to determine For continuity of documentation, please document condition throughout progress notes and discharge summary. Thank You. CLINICAL INDICATORS - SIGNS / SYMPTOMS / LABS ED notes p2 03/18 Pt has had fever 103 and cough since yesterday ED notes p92 03/18 CAP with hypoxia and likely an element of CHF precipitated pulmonary edema as well H&P p1 03/18 reports a 2-day history of persistent cough, some slight SOB and a temperature at home of 100.3 H&P p1 03/18 Her BNP was elevated at 226 H&P p3 03/18 She did elevated BNP and on report of chest x-ray was said have findings consistent with congestive heart failure/pulmonary edema. She does have significantly reduced renal function at baseline, which is worse today. Advised holding on any lasix and holding on any further CT imaging. [place] that due to the fever, she likely had an infectious process Consult p2 03/19 Dr Alcaraz Bilateral upper lobe pneumonia with small pleural effusions. Also congestive heart failure can be a consideration given bilateral infiltrates and pleural fluids PN p1 03/21 Dr Alcaraz I suspect that we are probably dealing with some systolic heart failure in the face of chronic renal insufficiency RISKS: ED notes p92 03/18- Sepsis ED notes p92 03/18- Pneumonia , community acquired ED notes p92 03/18- Acute renal Failure H&P p1 03/18 68 year-old woman TREATMENTS: Respiratory Panel 03/18 Oxygen on 2L Pulmo Consult 03/19 Dat Rg 03/18 IV Rocephin (This form is maintained as a part of the permanent medical record) 2014 [employer], [employer] All Rights Reserved [email or web address] [not provided] MTDD
--- NOTE | 2019-03-28 18:32 | PQF ---
DEVAUGHN ORTEGA DAVID R MD [id number] CLINICAL DOCUMENTATION CLARIFICATION FORM: POST DISCHARGE Addendum to original discharge summary date: ____ Late entry note date: __ DATE: 03/28/19 ATTN: Ayad Nguyen Please exercise your independent, professional judgment in responding to the clarification form. Clinical indicators are provided on the bottom of this form for your review In your clinical opinion based on clinical findings below, can you please identify the condition as the reason for Inpatient admission if due to: Please check appropriate box(s): [ ] Acute Kidney Injury [ ] Pneumonia [ ] Acute CHF Decompensated [ ] Other diagnosis [ x ] Unable to determine In addition, please specify: Present on Admission (POA): [ ] Yes [ ] No [ ] Unable to determine For continuity of documentation, please document condition throughout progress notes and discharge summary. Thank You. CLINICAL INDICATORS - SIGNS / SYMPTOMS / LABS ED notes p2 03/18 Pt has had fever 103 and cough since yesterday ED notes p92 03/18 CAP with hypoxia and likely an element of CHF precipitated pulmonary edema as well H&P p1 03/18 reports a 2-day history of persistent cough, some slight SOB and a temperature at home of 100.3 H&P p1 03/18 Her BNP was elevated at 226 H&P p3 03/18 She did elevated BNP and on report of chest x-ray was said have findings consistent with congestive heart failure/pulmonary edema. She does have significantly reduced renal function at baseline, which is worse today. Advised holding on any lasix and holding on any further CT imaging. [place] that due to the fever, she likely had an infectious process Consult p2 03/19 Dr Alcaraz Bilateral upper lobe pneumonia with small pleural effusions. Also congestive heart failure can be a consideration given bilateral infiltrates and pleural fluids PN p1 03/21 Dr Alcaraz I suspect that we are probably dealing with some systolic heart failure in the fave of chronic renal insufficiency RISK FACTORS ED notes p92 03/18- Sepsis ED notes p92 03/18- Pneumonia , community acquired ED notes p92 03/18- Acute renal Failure H&P p1 03/18 68 year-old woman TREATMENTS: JUN 02 IV Rocephine JUN 02 IV fluid bolus Respiratory Panel 03/18 Oxygen on 2L Pulmo Consult 03/19 Dat Rg (This form is maintained as a part of the permanent medical record) 2014 [employer], [employer]. All Rights Reserved [email or web address] [not provided] MTDD
== END 2019-03-21 11:28 | disposition home or self-care (01) | DRG 682 ==
LOC: ERS 13:37 → T4-A 19:57
PROVIDERS: ADMIT Emergency Medicine; ATTEND Emergency Medicine
DX: N17.9 Acute kidney failure, unspecified (principal); J18.9 Pneumonia, unspecified organism; J96.01 Acute respiratory failure with hypoxia; I50.23 Acute on chronic systolic (congestive) heart failure; I13.0 Hypertensive heart and chronic kidney disease with heart failure and stage 1 through stage 4 chronic kidney disease, or unspecified chronic kidney disease; E87.2 Acidosis; N18.4 Chronic kidney disease, stage 4 (severe); D63.1 Anemia in chronic kidney disease; F41.9 Anxiety disorder, unspecified; F32.9 Major depressive disorder, single episode, unspecified; E78.5 Hyperlipidemia, unspecified; E03.9 Hypothyroidism, unspecified; E66.01 Morbid (severe) obesity due to excess calories; E11.22 Type 2 diabetes mellitus with diabetic chronic kidney disease; Z96.21 Cochlear implant status; Z79.4 Long term (current) use of insulin; Z79.82 Long term (current) use of aspirin; Z79.890 Hormone replacement therapy; Z68.36 Body mass index [BMI] 36.0-36.9, adult; Z90.49 Acquired absence of other specified parts of digestive tract; Z88.1 Allergy status to other antibiotic agents; Z91.041 Radiographic dye allergy status; Z79.899 Other long term (current) drug therapy
CPT/HCPCS: 36415; 36416; 71046; 71250; 80048; 80053; 81003; 81015; 83605; 83690; 83880; 84145; 84484; 85025; 87040; 87804; 93005; 93306; 96365; J0696; J1815; J3490; S0028

== ENCOUNTER 2019-03-30 09:35 | Inpatient (IN) | payer MEDICARE ==
[2019-03-30 10:15] LABS: Hemoglobin 9.5 g/dL (12.0-16.0); Mean Corpuscular HGB CONC 33.3 g/dL (32.0-36.0); Mean Corpuscular Hemoglobin 29.7 pg (27.0-31.0); Mean Corpuscular Volume 89.2 fL (78.0-98.0); Mean Platelet Volume 6.3 fL (7.4-10.4); Platelet Count 448 thou/uL (130-400); RBC Distribution Width 14.8 % (11.5-14.5); Red Blood Cell (RBC) Count 3.19 mill/uL (4.20-5.40); White Blood Cell (WBC) Count 10.2 thou/uL (4.8-10.8)
--- NOTE | 2019-03-30 10:17 | RAD ---
EXAM: XR Chest 1 View Portable PROVIDED CLINICAL HISTORY: Dyspnea COMPARISON: 03/18/2019 FINDINGS: Cardiac silhouette remains enlarged. Vascular calcification is noted involving the aortic arch. Left midlung zone airspace disease. No pleural fluid or pneumothorax apparent. IMPRESSION: Left midlung zone airspace disease, compatible with pneumonia in the appropriate clinical context. Fo llow-up is recommended.
[2019-03-30 10:27] LABS: ALT (SGPT) 21 U/L (8-55); AST (SGOT) 19 U/L (5-34); Albumin 3.4 g/dL (3.4-4.8); Alkaline Phosphatase 112 U/L (40-110); Anion Gap 19 mmol/L (10-20); BUN (Urea Nitrogen) 49 mg/dL (9.8-20.1); Bilirubin, Total 0.4 mg/dL (0.2-1.2); Calc. Creatinine Clearance 0 mL/min (70-130); Carbon Dioxide 14 mmol/L (23-31); Chloride 113 mmol/L (98-107); Estimated GFR-MDRD 11; Globulin 3.7 g/dL (2.4-3.5); Glucose 120 mg/dL (80-115); Potassium 4.2 mmol/L (3.5-5.1); Protein, Total 7.1 g/dL (6.0-8.3); Sodium 142 mmol/L (136-145)
[2019-03-30 10:37] LABS: Anisocytosis SLIGHT = 6-15 cells (100X) (0-5/hpf); Band 11 % (5-11); Eosinophils 1 % (0-10); Hypochromia SLIGHT = 6-15 cells (100X) (0-5/hpf); Lymphocytes 19 % (21-51); MDiff Complete? YES; Monocytes 4 % (0-10); Neutrophil 62 % (42-75); Reactive Lymphocytes 3 % (0-10)
[2019-03-30 11:41] LABS: Bacteria/HPF 3+ HPF (None Seen); Bilirubin Negative (Negative); Blood, Urine Trace (Negative); Clarity Turbid (Clear); Glucose, Urine (Dipstick) 50 mg/dL (Negative); Leukocyte Negative Leu/uL (Negative); Nitrite Negative (Negative); Protein, Urine (Dipstick) 300 mg/dL (Neg-Trace); Squamous Epithelial 0-3 HPF (0-3); Urobilinogen Normal mg/dL (Less than 2)
[2019-03-30] MEDS ORDERED: Senokot S 8.6-50 MG TAB PO PRN (12:27)
[2019-03-30] MEDS ORDERED: Artificial Tears 18 DROP/0.9 ML EA EYE PRN (12:27)
[2019-03-30] MEDS ORDERED: Loratadine 10 MG TAB PO PRN (12:27)
[2019-03-30] MEDS ORDERED: Metoclopramide HCl 10 MG/2 ML VIAL IVP PRN (12:27)
[2019-03-30] MEDS ORDERED: Loperamide HCl 2 MG CAP PO PRN (12:27)
[2019-03-30] MEDS ORDERED: Cepastat Lozenges 1 LOZ PO PRN (12:27)
[2019-03-30] MEDS ORDERED: HumaLOG 300 UNITS/3 ML VIAL SC PRN (12:27)
[2019-03-30] MEDS ORDERED: Calcium Carbonate 500 MG ChewTAB PO PRN (12:27)
[2019-03-30] MEDS ORDERED: Dextrose 5% in Water 1,000 ML IV PRN (12:27)
[2019-03-30] MEDS ORDERED: Guaifenesin DM 100-10/5 ML UDCUP PO PRN (12:27)
[2019-03-30] MEDS ORDERED: Sodium Chloride 0.65% Nasal 44 ML BOT EA NARE PRN (12:27)
[2019-03-30] MEDS ORDERED: Diabetic Tussin 200 MG/10 ML UDCUP PO PRN (12:27)
[2019-03-30] MEDS ORDERED: Dextrose 50% Abboject 50 ML SYRINGE SLOW IVP PRN (12:27)
[2019-03-30] MEDS ORDERED: hydrALAZINE 20 MG/ML VIAL SLOW IVP PRN (12:27)
[2019-03-30] MEDS ORDERED: Bisacodyl 10 MG SUPP PR PRN (12:27)
[2019-03-30 14:14] LABS: Lactic Acid 2.3 mmol/L (0.5-2.2)
[2019-03-30 14:24] LABS: Troponin I 0.039 ng/mL (< 0.028)
[2019-03-30] MEDS: Heparin 5,000 UNITS/ML VIAL SC SCH ×2 (15:00→21:54)
--- NOTE | 2019-03-30 15:20 | HP ---
PRIMARY CARE PHYSICIAN: Dr. Jean Joseph. REASON FOR ADMISSION: Acute respiratory failure, recurrent pneumonia, sepsis with acute organ dysfunction. HISTORY OF PRESENT ILLNESS: A 68-year-old female, who has underlying history of chronic kidney disease, diabetes type 2, as well as hiatal hernia, who was recently admitted around time. At that time, patient was treated for right lower lobe pneumonia. Subsequently, the patient had another admission on March 19, 2019. At that time, patient had a CT chest and the patient was found with patchy perihilar opacity and the patient was treated for left upper lobe consolidation and again this is third admission for pneumonia and today chest x- ray in the emergency room showed left-sided mid lung zone airspace disease. The patient was having increasing shortness of breath and cough productive of sputum. The patient was very weak and that is why family member called paramedics and subsequently she was brought to emergency room. Family member reports that the patient has history of belching and she has difficulty swallowing because she had surgery for her stomach in the past. The patient also recurrently belches food particle and the patient has also sometimes difficulty swallowing. For the last couple of months, patient has had third admission for pneumonia. The patient was having increasing cough and increasing shortness of breath, but family member did not notice any fever. The patient was becoming more and more weak. Today, in the emergency room, routine blood test showed bandemia, acute on chronic kidney failure, lactic acidosis, elevated troponin and elevated BNP. Her urinalysis was also consistent with UTI. Influenza screen was negative. This patient is hard of hearing, unable to provide detailed history, but family member were present in the emergency room who provided history. The patient had a cochlear implant surgery and since then, the patient has difficulty walking because she feels unsteadiness and dizziness. PAST MEDICAL HISTORY: Diabetes type 2, diabetic nephropathy, hypertension, dyslipidemia, anemia of renal disease, chronic kidney disease stage 4, physical deconditioning, sensorineural deafness, hypothyroidism, gastroesophageal reflux disease. PAST PSYCHIATRIC HISTORY: Anxiety and depression. FAMILY HISTORY: No strong family history of CAD, CVA or cancer. PAST SURGICAL HISTORY: Cochlear implant in July 2018, , cholecystectomy , gastric bypass surgery versus gastric sleeve surgery. ALLERGIES: AZITHROMYCIN, IODINE. CURRENT HOME MEDICATIONS: 1. Aspirin 81 mg daily. 2. Lipitor 40 mg daily. 3. Azelastine nasal spray daily. 4. Calcium carbonate 500 mg daily. 5. Vitamin D3 5000 units p.o. daily. 6. Trulicity 1.5 mg subcu as directed. 7. Gabapentin 300 mg daily. 8. Vascepa 2 capsules p.o. b.i.d. 9. Glargine insulin 20 units subcu daily and 16 units at bedtime. 10. Synthroid 125 mcg daily. 11. Liothyronine 5 mcg daily. 12. Metoprolol tartrate 50 mg b.i.d. 13. Procardia XL 120 mg daily. 14. Omeprazole 20 mg daily. 15. Zoloft 50 mg daily. SOCIAL HISTORY: The patient is . She lives at home with her and family member. No history of tobacco, alcohol, or illicit drug abuse. EMERGENCY ROOM COURSE: The patient is given cefepime 2 g, Levaquin 750 mg, vancomycin 1 g, DuoNeb therapy, Ringer's lactate 1 L and IV fluid 1 L. REVIEW OF SYSTEMS: CONSTITUTIONAL: Negative for weight loss or gain, ability to conduct usual activities. SKIN: Negative for rash, itching. EYES: Negative for double vision, pain. ENT/MOUTH: Negative for nose bleeding, neck stiffness, pain, tenderness. CARDIOVASCULAR: Negative for palpitations, dyspnea on exertion, orthopnea. RESPIRATORY: Negative for shortness of breath, wheezing, cough, hemoptysis, fever or night sweats. GASTROINTESTINAL: Negative for poor appetite, abdominal pain, heartburn, nausea , vomiting, constipation, or diarrhea. GENITOURINARY: Negative for urgency, frequency, dysuria, nocturia. MUSCULOSKELETAL: Negative for pain, swelling. NEUROLOGIC/PSYCHIATRIC: Negative for anxiety, depression. ALLERGY/IMMUNOLOGIC: Negative for skin rash, bleeding tendency. Please see my HPI for pertinent positives and negatives. All other review of systems reviewed and negative except as mentioned in HPI. PHYSICAL EXAMINATION: VITAL SIGNS: On arrival, blood pressure 142/91, pulse 108, respiratory rate 22, temperature 98.1, saturation 85% on room air. Weight 96.1 kg. GENERAL: The patient is currently alert, awake, chronically ill, no obvious acute distress. HEENT: Head normocephalic, atraumatic. Eyes: Pupils round, reactive to light. Extraocular muscle intact. ENT: Oropharynx within normal limits. Moist mucous membranes. No oral lesion. No pharyngeal erythema, no exudate. NECK: Supple. No JVD. No thyromegaly. No carotid bruit. LUNGS: Bilateral end-expiratory wheezing heard, but left-sided rales noted. No accessory muscles of respiration in use. CARDIAC: S1, S2 appears regular. Slight tachycardia. Soft systolic murmur noted. No gallop, no rub. ABDOMEN: Obesity present, bowel sounds present. Nontender. Nondistended. No organomegaly. No mass. No suprapubic tenderness. BACK: Unremarkable. No CVA tenderness. EXTREMITIES: Upper extremities, passive movement of all joints are normal. Lower extremity, bilateral lower extremity pitting edema noted, good distal pulsation. SKIN: No skin rash. HEMATOLOGIC: No lymphadenopathy. PSYCHIATRIC: Normal affect. NEUROLOGIC: Nonfocal examination. SIGNIFICANT LABORATORY DATA: EKG showing sinus tachycardia, premature atrial complexes, nonspecific ST-T changes in lateral lead. Chest x-ray showing left mid lung zone airspace disease compatible with pneumonia. CBC: WBC 10.2, hemoglobin 9.5, platelet 448 with bandemia. BMP: Sodium 142, potassium 4.2, chloride 113, carbon dioxide 14, BUN 49, creatinine 3.92, glucose 120, calcium 8.0. Lactic acid 2.3. LFT: AST 19, ALT 21, alkaline phosphatase 112, albumin 3.4. Troponin 0.010 and then 0.039. BNP 768.4. Lactic acid 2.3. Urinalysis consistent with the bacteriuria. ASSESSMENT AND PLAN: 1. Sepsis with acute organ dysfunction. The patient has acute respiratory failure, lactic acidosis, source of infection is recurrent pneumonia and possible urinary tract infection. 2. Acute respiratory failure with hypoxia, likely due to underlying pneumonia. 3. Recurrent pneumonia, left midlung. At this point, the patient has swallowing difficulty and I am suspecting that recurrent pneumonia probably related with aspiration pneumonia. At this point, the patient will be treated with broad-spectrum antibiotic therapy with Zosyn, levofloxacin, and vancomycin based on renal dose. 4. Acute on chronic kidney failure with baseline chronic kidney disease stage 4. 5. Lactic acidosis. 6. Anemia of renal disease. 7. Acute on chronic diastolic congestive heart failure. 8. Demand ischemia of myocardium, consistent with myocardial infarction type 2. 9. Sensorineural deafness. 10. Obesity with BMI 35. 11. Hypothyroidism. 12. Diabetes type 2. 13. Dyslipidemia. 14. Diabetic nephropathy, neuropathy. 15. Hypertension. 16. Gastroesophageal reflux disease. 17. Hiatal hernia. 18. Anxiety and depression. 19. Physical deconditioning. PLAN: 1. Regarding pneumonia, patient will be treated with Zosyn, Levaquin, and vancomycin based on renal dose. 2. We will start ferrous sulfate and Nephro-Osiel for anemia of renal disease. 3. Deep venous thrombosis prophylaxis with heparin 5000 units subcu t.i.d., DuoNeb q.6 hourly, probiotics with Florastor 250 mg p.o. daily. As the patient has renal failure and metabolic acidosis, we will start sodium bicarbonate 650 mg twice daily. Once we verify the patient's home medication, then we will start her home medication insulin as per sliding scale per protocol. 4. Deep venous thrombosis prophylaxis, heparin 5000 units subcu twice daily. 5. GI prophylaxis, Protonix 40 mg p.o. daily. CODE STATUS: The patient is full code. The patient's is surrogate decision maker. DISPOSITION PLAN: Based on clinical course. We are expecting the patient's stay in hospital more than 2 midnights. Plan of care discussed with the patient's family member in the emergency room. During this admission, we will also consult Nephrology and Pulmonology for their opinion. The patient will also need Speech Therapy evaluation to rule out any aspiration, PT/OT and subsequently plan for half-way home placement if needed. Job ID: [id number] MTDD
[2019-03-30] MEDS: HumaLOG 300 UNITS/3 ML VIAL SC PRN ×2 (17:11→21:55)
[2019-03-30] MEDS: Piperacillin/Tazobactam 2.25 GM in Sodium Chloride 0.9% 100 ML IVPB SCH (17:28)
[2019-03-30 17:31] LABS: Troponin I 0.067 ng/mL (< 0.028)
[2019-03-30] MEDS: Gabapentin 300 MG CAP PO SCH (20:00)
[2019-03-30] MEDS: Sodium Bicarbonate Tab 325 MG TAB PO SCH (20:00)
[2019-03-30] MEDS: Azelastine 137 MCG/Spray 30 ML NS SCH (20:00)
[2019-03-30] MEDS: Metoprolol Tartrate 50 MG TAB PO SCH (20:00)
[2019-03-30] MEDS ORDERED: INSULIN GLARGINE HUM REC ANLOG 16 UNIT SC SCH (21:00)
[2019-03-30] MEDS: Insulin Glargine 13 UNITS in Pre-Filled Syringe 1 EACH SC SCH (21:54)
--- NOTE | 2019-03-31 01:41 | CON ---
DATE OF CONSULTATION: 03/30/2019 CONSULTING PHYSICIAN: Dr. De La Cruz. REASON FOR CONSULTATION: Acute kidney injury. REASON FOR ADMISSION: Shortness of breath. HISTORY OF PRESENT ILLNESS: A 68-year-old female with history of type 2 diabetes, hypertension, CKD, deafness, hypothyroidism, came to the hospital with shortness of breath, has been treated for pneumonia and sepsis. Nephrology consult for acute kidney injury. She was seen during last admission for CKD and acute kidney injury and was supposed to see at the clinic. No fever or chills. Still having breathing trouble. PAST MEDICAL HISTORY: Positive for CKD, type 2 diabetes, hypertension, nephropathy, anemia, deafness, hypothyroidism, and GERD. PAST SURGICAL HISTORY: Cochlear implant, , cholecystectomy, and gastric bypass. HOME MEDICATIONS: 1. Aspirin. 2. Lipitor. 3. Calcium. 4. Vitamin D3. 5. Trulicity. 6. Gabapentin. 7. Vascepa. 8. Glargine. 9. Synthroid. 10. Liothyronine. 11. Metoprolol. 12. Procardia. 13. Omeprazole. 14. Zoloft. ALLERGIES: TO ZITHROMAX AND IODINE. SOCIAL HISTORY: No smoking, alcohol, or illicit drug abuse. FAMILY HISTORY: No history of kidney disease. REVIEW OF SYSTEMS: CONSTITUTIONAL: Negative for weight loss or gain, ability to conduct usual activities. SKIN: Negative for rash, itching. EYES: Negative for double vision, pain. ENT/MOUTH: Negative for nose bleeding, neck stiffness, pain, tenderness. CARDIOVASCULAR: Negative for palpitations, dyspnea on exertion, orthopnea. RESPIRATORY: Negative for shortness of breath, wheezing, cough, hemoptysis, fever or night sweats. GASTROINTESTINAL: Negative for poor appetite, abdominal pain, heartburn, nausea, vomiting, constipation, or diarrhea. GENITOURINARY: Negative for urgency, frequency, dysuria, nocturia. MUSCULOSKELETAL: Negative for pain, swelling. NEUROLOGIC/PSYCHIATRIC: Negative for anxiety, depression. ALLERGY/IMMUNOLOGIC: Negative for skin rash, bleeding tendency. PHYSICAL EXAMINATION: GENERAL: This is an obese female, in no apparent distress. VITAL SIGNS: Temperature 99, pulse 109, respiratory rate 18, and blood pressure 157/72. HEENT: Atraumatic and normocephalic. Oral mucosa is moist. NECK: Supple. CV: S1 and S2 heard. Rate and rhythm regular. RESPIRATORY: Clear. GASTROINTESTINAL: Abdomen is soft. MUSCULOSKELETAL: 1+ edema. DERMATOLOGIC: No skin rash. NEUROLOGIC: Alert and awake. PSYCHIATRIC: Mood and affect normal. LABORATORY DATA: Hemoglobin 9.5, potassium 4.2, BUN is 49, and creatinine is 3.9. ASSESSMENT AND PLAN: 1. Acute kidney injury on chronic kidney disease stage 4, acute worsening most likely from sepsis. Continue supportive care and we will hydrate if tolerated, currently not on any hydration. 2. Acidosis, on oral sodium bicarbonate. 3. Edema, chronic. 4. Mild hypoalbuminemia. 5. Anemia of chronic disease. 6. Hypertension. 7. Avoid nephrotoxins. Renally dose the medications. Hydration as tolerated. We will follow. Thank you for the consult. No acute indication for dialysis. Job ID: [id number]
[2019-03-31] MEDS: Acetaminophen 325 MG TAB PO PRN (04:15)
[2019-03-31 04:45] LABS: #Monocytes 0.3 thou/uL (0.11-0.59); #Neutrophils 8.1 thou/uL (1.40-6.50); %Basophils 0.3 % (0.0-1.0); %Eosinophils 0.3 % (0.0-10.0); %Lymphocytes 10.6 % (21.0-51.0); %Monocytes 3.6 % (0.0-10.0); %Neutrophils 85.3 % (42.0-75.0); Hemoglobin 7.2 g/dL (12.0-16.0); Mean Corpuscular Hemoglobin 28.9 pg (27.0-31.0); Mean Corpuscular Volume 87.7 fL (78.0-98.0); Platelet Count 308 thou/uL (130-400); White Blood Cell (WBC) Count 9.5 thou/uL (4.8-10.8)
[2019-03-31 04:59] LABS: ALT (SGPT) 15 U/L (8-55); AST (SGOT) 13 U/L (5-34); Albumin 2.7 g/dL (3.4-4.8); Alkaline Phosphatase 81 U/L (40-110); Anion Gap 12 mmol/L (10-20); BUN (Urea Nitrogen) 43 mg/dL (9.8-20.1); Bilirubin, Total 0.3 mg/dL (0.2-1.2); Calc. Creatinine Clearance 22 mL/min (70-130); Calcium 7.6 mg/dL (7.8-10.44); Carbon Dioxide 18 mmol/L (23-31); Chloride 112 mmol/L (98-107); Estimated GFR-MDRD 13; Glucose 98 mg/dL (80-115); Phosphorus 4.4 mg/dL (2.3-4.7); Potassium 4.2 mmol/L (3.5-5.1); Protein, Total 5.7 g/dL (6.0-8.3); Sodium 138 mmol/L (136-145)
[2019-03-31] MEDS: Piperacillin/Tazobactam 2.25 GM in Sodium Chloride 0.9% 100 ML IVPB SCH ×4 (05:49→17:33)
[2019-03-31] MEDS: Levothyroxine Sodium 125 MCG TAB PO SCH (05:49)
[2019-03-31] MEDS: Azelastine 137 MCG/Spray 30 ML NS SCH ×2 (08:06→20:44)
[2019-03-31] MEDS: Heparin 5,000 UNITS/ML VIAL SC SCH ×3 (08:06→20:44)
[2019-03-31] MEDS: Sodium Bicarbonate Tab 325 MG TAB PO SCH ×2 (08:07→20:44)
[2019-03-31] MEDS: Liothyronine Sodium 5 MCG TAB PO SCH (08:07)
[2019-03-31] MEDS: Aspirin 81 mg Enteric Coated Tablet PO SCH (08:07)
[2019-03-31] MEDS: Calcium Carbonate 500 MG TAB PO SCH (08:08)
[2019-03-31] MEDS: Metoprolol Tartrate 50 MG TAB PO SCH (08:08)
[2019-03-31] MEDS: Folic Acid/Vit B Comp W-C PO SCH (08:08)
[2019-03-31] MEDS: Saccharomyces boulardii 250 MG CAP PO SCH (08:08)
[2019-03-31] MEDS: Ferrous Sulfate 325 MG TAB PO SCH (08:08)
[2019-03-31] MEDS ORDERED: NIFEdipine XL 60 MG TAB PO SCH (09:00)
[2019-03-31] MEDS ORDERED: INSULIN GLARGINE HUM REC ANLOG 20 UNIT SC SCH (09:00)
[2019-03-31 10:14] LABS: Vancomycin, Trough 9.7 ug/mL
[2019-03-31] MEDS: Insulin Glargine 16 UNITS in Pre-Filled Syringe 1 EACH SC SCH (10:40)
[2019-03-31] MEDS ORDERED: Vancomycin HCl 1 GM in Premix Bag 1 BAG IVPB SCH (11:00)
--- NOTE | 2019-03-31 12:13 | CON ---
DATE OF CONSULTATION: 03/31/2019 CONSULTING PHYSICIAN: Elsa De La Cruz MD REASON FOR CONSULTATION: Pneumonia. Following encompasses 50 minutes of time, of that time, greater than 50% spent with the patient in the hospital and/or in the patient's unit. HISTORY OF PRESENT ILLNESS: The patient is a 68-year-old, who has been readmitted with increasing shortness of breath and cough. She had been in the hospital around [place] with a left upper lobe pneumonia. Her family brought her back yesterday with increasing shortness of breath. Apparently, she has had some issues with swallowing and possibly aspiration. She is scheduled for a workup of that later today. PAST MEDICAL HISTORY: 1. Pneumonia. 2. Diabetes mellitus type 2. 3. Hypertension. 4. Hyperlipidemia. 5. Hearing impairment with cochlear implants. 6. Chronic kidney disease. 7. . 8. Cholecystectomy. 9. Gastric sleeve surgery. ALLERGIES: AZITHROMYCIN AND IODINE. MEDICATIONS: Prior to admission; 1. Aspirin. 2. Atorvastatin. 3. Astelin nasal spray. 4. Trulicity. 5. Gabapentin. 6. Vascepa. 7. Insulin. 8. Synthroid. 9. Liothyronine. 10. Metoprolol. 11. Nifedipine. 12. Omeprazole. 13. Sertraline. 14. Vitamin B complex. REVIEW OF SYSTEMS: Twelve-point review of systems is otherwise negative. PHYSICAL EXAMINATION: VITAL SIGNS: Temperature 98.6, pulse 86, respirations 16, O2 saturation 94% on 2 L, and blood pressure 164/70. GENERAL: She is sitting up. She does not appear to be in any distress. HEENT: Unremarkable. NECK: No adenopathy or JVD. LUNGS: She has crackles left upper lobe, best heard posteriorly, right side clear cardiac S1, S2. Regular. ABDOMEN: Soft and nontender. EXTREMITIES: No clubbing, cyanosis, or edema. IMAGING: Her chest x-ray shows a fairly dense left her left upper lobe infiltrate. LABORATORY DATA: White blood cell count 9.5, hematocrit 21.9, and platelet count 308. Sodium 138, potassium 4.2, chloride 112, CO2 of 18, BUN 43, creatinine 3.4, and glucose 98. ASSESSMENT: 1. Left upper lobe pneumonia. 2. Renal failure. 3. Alveolar hemorrhage. The constellation of findings is worrisome for vasculitis or pulmonary hemorrhage syndrome. Aspiration pneumonitis should also be in the differential. PLAN: 1. I agree with the antibiotics. 2. Agree with swallowing study. 3. Nephrology has been consulted to see the patient. 4. We will check vasculitis titers. 5. We will follow with you. Job ID: [id number]
--- NOTE | 2019-03-31 12:34 | PRG ---
DATE OF SERVICE: 03/31/2019 SUBJECTIVE: The patient is seen and examined at the bedside. Her is present in the room during my visit and the patient and is hard of hearing. She is eating her lunch without any problems. She was seen by Dr. Sosa approximately an hour ago and he is planning to do the barium swallow studies to evaluate her swallowing. He suspect that she might be aspirating. OBJECTIVE: VITAL SIGNS: Blood pressure is 110/56, pulse is 77, respirations 18, temperature is 97.9, O2 saturation 95% on 2 L by nasal cannula. HEENT: Her head is atraumatic and normocephalic. Eyes are PERRLA. Sclerae are nonicteric. Oral mucosa is moist. NECK: Supple. LUNGS: Bilateral rales at both bases. HEART: S1, S2 normal. No S3, no S4. ABDOMEN: Soft, nontender, nondistended. EXTREMITIES: No clubbing, cyanosis, or edema. NEUROLOGIC: She is alert and oriented x4. There is no any motor or sensory deficit. LABORATORY DATA: Labs showed white count of 9.5, hemoglobin 7.2, hematocrit 21.9, platelet count is 308. Sodium of 138, potassium 4.2, chloride 112, CO2 of 18, BUN 43, creatinine 3.45. Glycemia is ranging from 97-232, calcium 7.6, total protein 5.7, albumin 2.7, PTH intact 392.8. The vancomycin trough 9.7. IMPRESSION: 1. Recurrent pneumonia and suspicion for aspiration. The patient is going to have a barium swallow studies today done. We will stop her Levaquin, continue vancomycin and Zosyn for now until we have better picture of what is going on. 2. Acute respiratory failure with hypoxia secondary to underlying pneumonia. 3. Acute on chronic kidney failure with baseline chronic kidney disease stage 4. Nephrology is on the case. 4. Lactic acidosis, most likely secondary to worsening kidney function. 5. Anemia of renal disease. 6. Secondary hyperparathyroidism. 7. Demand ischemia of myocardium, consistent with myocardial infarction type 2. 8. Hypothyroidism. 9. Diabetes mellitus type 2. PLAN: Plan is to as mentioned above continue Zosyn and vancomycin. Stop Levaquin. Do barium swallow. Continue probiotic. Continue insulin before meals and at bedtime and continue PT and OT. Job ID: [id number]
--- NOTE | 2019-03-31 13:57 | RAD ---
Modified barium swallow HISTORY: Dysphagia. Feeding difficulties. FINDINGS: Exam was performed in conjunction with speech pathology with multiple consistencies. Video review is available and demonstrates extensive early spill of contrast with all consistencies, most to the level of the piriform sinuses. With chin tucked down, early spill was reduced dramatically. No penetration or aspiration. Small amount of residual with good clearance upon secondary swallowing. A 12 mm barium tablet was swallowed without difficulty. The esophagus below the level of the hypopharynx was not evaluated. Fluoroscopy time 1.4 minutes. Please see separate detailed report from speech pathology.
[2019-03-31 16:08] LABS: ANA Symphony (Qualitative) Negative (Negative); ANA Symphony (Quantitative) 0.2 Ratio (< 0.7 Negative); EliA RAS New Method **** NEW METHOD ****; EliA Thy New Method **** NEW METHOD ****; EliA Vaculitis New Method **** NEW METHOD ****; Mitochondrial Ab Less than 0.5 U/mL (<4 Negative); Rheumatoid Factor IgA Antibody 3.3 IU/mL (<14 Negative); Rheumatoid Factor IgM Antibody Less than 0.5 IU/mL (<3.5 Negative); Thyroid Peroxidase IgG Ab Less than 4.0 IU/mL (<25 Normal); dsDNA IgG Antibody 0.5 IU/mL (<10 Negative)
[2019-03-31] MEDS: HumaLOG 300 UNITS/3 ML VIAL SC PRN (17:33)
--- NOTE | 2019-03-31 19:01 | PRG ---
DATE OF SERVICE: 03/31/2019 SUBJECTIVE: Patient was seen and examined at bedside and overnight events noted. Patient denies any shortness of breath or chest pain or palpitation. No history of nausea or vomiting or diarrhea or fever or chills or cramps. OBJECTIVE: GENERAL: This is a well-built female, in no apparent distress. VITAL SIGNS: Temperature 97.9. Heart rate 77. Respiratory rate 18. Blood pressure 110/56. HEENT: Atraumatic, normocephalic. Oral mucosa is moist NECK: Supple. CARDIOVASCULAR: S1, S2 heard. Rate and rhythm regular. RESPIRATORY: Clear to auscultation. GASTROINTESTINAL: Abdomen is soft. MUSCULOSKELETAL: No tenderness. No edema. DERMATOLOGIC: No skin rash. NEUROLOGIC: Alert and awake and oriented X3. No focal neurologic deficits. Moving all the extremities. PSYCHIATRIC: Mood and affect normal. LABORATORY DATA: Potassium 4.2, BUN is 43, creatinine is 3.4 from 3.9 yesterday. ASSESSMENT AND PLAN: 1. Acute kidney injury on chronic kidney disease stage 4 with improvement in creatinine. We will continue to follow. Avoid nephrotoxins. 2. Acidosis, stable. 3. Edema, controlled. 4. History of hypertension. 5. Anemia of chronic disease. We will monitor renal function. Avoid nephrotoxins. Continue supportive care. Job ID: [id number]
[2019-03-31] MEDS: Insulin Glargine 13 UNITS in Pre-Filled Syringe 1 EACH SC SCH (20:43)
[2019-03-31] MEDS: Atorvastatin Calcium 40 MG TAB PO SCH (20:45)
[2019-03-31] MEDS: Gabapentin 300 MG CAP PO SCH (20:45)
[2019-03-31] MEDS: Metoprolol Tartrate 25 MG TAB PO SCH (20:45)
[2019-04-01 05:08] LABS: #Eosinphils 0.1 thou/uL (0.0-0.7); #Lymphocytes 1.4 thou/uL (1.20-3.40); #Monocytes 0.4 thou/uL (0.11-0.59); #Neutrophils 6.5 thou/uL (1.40-6.50); %Eosinophils 0.9 % (0.0-10.0); %Lymphocytes 16.9 % (21.0-51.0); %Neutrophils 77.1 % (42.0-75.0); Hemoglobin 7.1 g/dL (12.0-16.0); Mean Corpuscular HGB CONC 33.8 g/dL (32.0-36.0); Mean Corpuscular Hemoglobin 30.1 pg (27.0-31.0); Mean Corpuscular Volume 89.1 fL (78.0-98.0); Mean Platelet Volume 6.5 fL (7.4-10.4); Platelet Count 325 thou/uL (130-400); RBC Distribution Width 15.2 % (11.5-14.5); Red Blood Cell (RBC) Count 2.35 mill/uL (4.20-5.40); White Blood Cell (WBC) Count 8.4 thou/uL (4.8-10.8)
[2019-04-01 05:10] LABS: Anion Gap 15 mmol/L (10-20); BUN (Urea Nitrogen) 53 mg/dL (9.8-20.1); Calc. Creatinine Clearance 18 mL/min (70-130); Calcium 7.7 mg/dL (7.8-10.44); Carbon Dioxide 18 mmol/L (23-31); Chloride 109 mmol/L (98-107); Estimated GFR-MDRD 10; Glucose 102 mg/dL (80-115); Potassium 4.3 mmol/L (3.5-5.1); Sodium 138 mmol/L (136-145)
[2019-04-01] MEDS: Piperacillin/Tazobactam 2.25 GM in Sodium Chloride 0.9% 100 ML IVPB SCH ×5 (05:42→23:15)
[2019-04-01] MEDS: Levothyroxine Sodium 125 MCG TAB PO SCH (05:42)
[2019-04-01] MEDS: Folic Acid/Vit B Comp W-C PO SCH (08:16)
[2019-04-01] MEDS: Heparin 5,000 UNITS/ML VIAL SC SCH ×2 (08:16→20:04)
[2019-04-01] MEDS: Saccharomyces boulardii 250 MG CAP PO SCH (08:16)
[2019-04-01] MEDS: Metoprolol Tartrate 25 MG TAB PO SCH ×2 (08:17→20:03)
[2019-04-01] MEDS: Calcium Carbonate 500 MG TAB PO SCH (08:17)
[2019-04-01] MEDS: Aspirin 81 mg Enteric Coated Tablet PO SCH (08:17)
[2019-04-01] MEDS: Liothyronine Sodium 5 MCG TAB PO SCH (08:17)
[2019-04-01] MEDS: Sodium Bicarbonate Tab 325 MG TAB PO SCH (08:17)
[2019-04-01] MEDS: NIFEdipine XL 60 MG TAB PO SCH (08:17)
[2019-04-01] MEDS: Ferrous Sulfate 325 MG TAB PO SCH (08:18)
[2019-04-01] MEDS: Insulin Glargine 16 UNITS in Pre-Filled Syringe 1 EACH SC SCH (08:24)
[2019-04-01] MEDS: Azelastine 137 MCG/Spray 30 ML NS SCH ×2 (08:24→20:03)
--- NOTE | 2019-04-01 10:49 | PRG ---
DATE OF SERVICE: 04/01/2019 SUBJECTIVE: The patient feels a little better today. I looked at her speech pathology report and she did have [id number] swallowing dysfunction in certain phase of swallowing indicating that she probably is aspirating at times. OBJECTIVE: VITAL SIGNS: Her temperature is 98.9, pulse 87, respirations 16, O2 saturation 98% on 2 L, and blood pressure 145/65. HEENT: Unremarkable. NECK: No adenopathy or JVD. CHEST: Clear without wheezing or rhonchi. CARDIAC: S1 and S2. Regular. ABDOMEN: Soft. EXTREMITIES: No edema. LABORATORY DATA: White blood cell count 8.4, hematocrit 20.9, and platelet count 325. Sodium 138, potassium 4.3, chloride 109, CO2 of 18, BUN 53, creatinine 4.3, and glucose 102. ASSESSMENT: 1. Oropharyngeal dysfunction leading to probable aspiration. 2. Left upper lobe pneumonia, likely aspiration is the cause. 3. Renal failure. 4. Rule out alveolar hemorrhage. 5. Severe anemia. PLAN: Her vasculitis panel looks like it is probably negative that would lean toward this more being due to aspiration causes. I would continue with the antibiotics and refine her diet. She is anemic and GI has been consulted. Job ID: [id number]
[2019-04-01] MEDS ORDERED: Vancomycin HCl 1 GM in Premix Bag 1 BAG IVPB SCH (11:00)
[2019-04-01] MEDS: HumaLOG 300 UNITS/3 ML VIAL SC PRN ×2 (11:39→17:38)
[2019-04-01 11:52] LABS: Vancomycin, Random 12.7 ug/mL (See Comment)
--- NOTE | 2019-04-01 12:36 | PRG ---
DATE OF SERVICE: 04/01/2019 SUBJECTIVE: The patient is seen and examined at bedside. There are several family members in the room during my visit and all questions were answered to their satisfaction. OBJECTIVE: VITAL SIGNS: Blood pressure is 129/60, pulse is 86, respiratory rate is 18, O2 saturation is 98% on 2 L by nasal cannula, and temperature is 98.7. HEENT: Head is atraumatic and normocephalic. Eyes are PERRLA. Sclerae are nonicteric. Oral mucosa is moist. NECK: Supple. LUNGS: Breath sounds diminished at both bases. HEART: S1 and S2 normal. No S3. No S4. Somewhat irregular. ABDOMEN: Soft. Mildly tender in the right upper quadrant. Bowel sounds are present. No organomegaly. EXTREMITIES: 1+ peripheral edema similar bilateral. No ecchymoses. NEUROLOGIC: She follows my commands. She moves all 4 extremities. There are no any motor deficits. LABORATORY DATA: Labs showed white count of 8.4, hemoglobin 7.1, hematocrit 20.9, platelet count is 325,000. Sodium of 138, potassium 4.3, chloride 109, CO2 of 18, BUN 53, creatinine 4.31. Glycemia is ranging from 132 to 165, calcium is 7.7. Vasculitis panel came back negative. IMPRESSION: 1. Recurrent pneumonia, most likely related to aspiration. Her barium swallow studies did not show any problems, but speech therapy evaluation showed some abnormalities requiring modification of her diet, which is done according to the recommendations. We are going to continue her Zosyn and stop the vancomycin if it is okay with mechanical design engineer facilities. 2. Acute respiratory failure with hypoxia secondary to underlying pneumonia. 3. Acute on chronic kidney failure, worsening creatinine. Nephrology is on the case. 4. Lactic acidosis. 5. Anemia of renal disease plus possible alveolar hemorrhage per mechanical design engineer facilities. 6. Demand ischemia. 7. Hypothyroidism. 8. Diabetes mellitus, type 2. PLAN: In view of worsening kidney function, I will stop her vancomycin and continue Zosyn. Her Levaquin was stopped yesterday. Her diet was modified. I will continue probiotic. Continue same coverage with insulin for Accu-Cheks. We are awaiting for GI evaluation. We will transfuse her with a packed red blood cells if her hemoglobin drops below 7, it is 7.1 this morning. Job ID: [id number]
--- NOTE | 2019-04-01 12:47 | PRG ---
DATE OF SERVICE: 04/01/2019 SUBJECTIVE: Patient was seen and examined at bedside and overnight events noted. Patient denies any shortness of breath or chest pain or palpitation. No history of nausea or vomiting or diarrhea or fever or chills or cramps. OBJECTIVE: GENERAL: This is an elderly female, in no apparent distress. VITAL SIGNS: Temperature 97. Heart rate 83. Respiratory rate 18. Blood pressure 139/60. HEENT: Atraumatic, normocephalic. Oral mucosa is moist NECK: Supple. CARDIOVASCULAR: S1, S2 heard. Rate and rhythm regular. RESPIRATORY: Clear to auscultation. GASTROINTESTINAL: Abdomen is soft. MUSCULOSKELETAL: No tenderness. No edema. DERMATOLOGIC: No skin rash. NEUROLOGIC: Alert and awake and oriented X3. No focal neurologic deficits. Moving all the extremities. PSYCHIATRIC: Mood and affect normal. LABORATORY DATA: Potassium 4.3, BUN is 53, creatinine is 4.3. ASSESSMENT AND PLAN: 1. Acute kidney injury on chronic kidney stage 4 with worsening creatinine today, not sure etiology, most likely from volume depletion may be sepsis. Plan is to start on NS at 50 mL/h if tolerated. 2. Acidosis, better. Monitor. 3. Edema, controlled. 4. History of hypertension. 5. Anemia of chronic disease. Plan is to gently hydrate her and we will hold the sodium bicarb and iron sulfate. We will change heparin dose to b.i.d. and we will follow. Job ID: [id number]
[2019-04-01] MEDS: Sodium Chloride 0.9% 1,000 ML IV SCH (13:34)
[2019-04-01] MEDS: Gabapentin 300 MG CAP PO SCH (20:03)
[2019-04-01] MEDS: Atorvastatin Calcium 40 MG TAB PO SCH (20:04)
[2019-04-01] MEDS: Acetaminophen 325 MG TAB PO PRN (20:04)
[2019-04-01] MEDS: Insulin Glargine 13 UNITS in Pre-Filled Syringe 1 EACH SC SCH (20:54)
--- NOTE | 2019-04-02 00:54 | CON ---
DATE OF CONSULTATION: 04/01/2019 REASON FOR CONSULTATION: Anemia, possible GI bleed. HISTORY OF PRESENT ILLNESS: Ms. Porter is a pleasant 68-year-old female who was admitted to the hospital on the secondary to acute respiratory failure, recurrent pneumonia, and sepsis. She has a history of diabetes, chronic kidney disease, reported hiatal hernia and previous gastric sleeve surgery about 7 years ago, who was recently admitted around [facility] with a right lower lobe pneumonia. She was admitted again on March [address] scan of the chest, was found to have perihilar patchy opacity and was treated for a left upper lobe consolidation and this admission, she had left-sided mid lung airspace disease again, she had worsening shortness of breath, productive of sputum and that is why she was brought to the emergency room. Here when she came in, she had acute on chronic renal failure, elevated white count with bandemia, possible UTI, influenza screen was negative. Here, she was noted to be anemic with a hemoglobin of 9.5. With hydration, her hemoglobin dropped to 7.2. Her hemoglobin had been 8.5 on 02/11, had been 10 on 02/09, and it had been 9.8 on 08/24/2018, it had been 11 on 08/23/2018. No previous iron stores or B12 have been obtained. A hemoccult was obtained this admission, has been negative. I have talked with the patient. She has had issues with regurgitation and food at times, that has been present ever since her gastric sleeve. She has had no melena, hematochezia, or hematemesis. Previous GI evaluations include colonoscopy with polypectomy in 2015. She is due for a followup in 2020. She had an EGD for reflux in 2011 and an ERCP in 2012 for choledocholithiasis. At that time, she was noted to have gastric sleeve anatomy. She does not take regular iron or vitamin supplements with her gastric sleeve. Creatinine has slowly increased this admission. It was 3.92, it is up to 4.3 now. In 2012, it was 1.5. In 08/2018, it was 2.56. She states this has been attributable to her diabetic disease. Recent liver function tests have been normal. PAST MEDICAL HISTORY: 1. Recurrent pneumonias concern for possible aspiration. She has had a gastric sleeve which . She had a modified barium swallow this admission, which was normal. 2. Type 2 diabetes, chronic. 3. Hypertension. 4. Hyperlipidemia. 5. Hearing impairment. She had a cochlear implant recently. 6. Chronic kidney disease, worsening this admission. She states that it has been attributable possible to antibiotic she has been on recently. 7. Anemia, chronic, normocytic normochromic, developing over the past year. 8. Prior history of colon polyps. Up-to-date on colon cancer screening with last examination in 09/2015. Previous EGDs for reflux. No history of ulcer disease. Previous gastric sleeve surgery about 7 years ago. Previous ERCP in 2012, previous and cholecystectomies. ALLERGIES: ERYTHROMYCIN AND IODINE. MEDICATIONS: Prior to admission, 1. Atorvastatin. 2. Aspirin. 3. Astelin spray. 4. Trulicity. 5. Gabapentin. 6. Vascepa. 7. Insulin. 8. Synthroid. 9. Liothyronine. 10. Metoprolol. 11. Nifedipine. 12. Omeprazole. 13. Sertraline. 14. B12. Present medications here, 1. Tylenol. 2. DuoNeb. 3. Artificial Tears. 4. Lipitor. 5. . 6. Dulcolax. 7. Tums. 8. Os-Grant. 9. Vitamin. 10. Neurontin. 11. Glucagon. 12. Robitussin. 13. Heparin. 14. Insulin sliding scale. 15. Liothyronine. 16. Levothyroxine. 17. Loperamide p.r.n. 18. Loratadine p.r.n. 19. Reglan 5 q.6 p.r.n. 20. Metoprolol. 21. Protonix. 22. Pantoprazole. 23. Saccharomyces boulardii. 24. Normal saline at 50 mL an hour. 25. B12. 26. Vitamin C. REVIEW OF SYSTEMS: Negative for dysphagia or odynophagia. Negative for abdominal pain, change in bowel function, diarrhea, weight loss, change in appetite. PHYSICAL EXAMINATION: VITAL SIGNS: Temperature is 98.2. She has been afebrile since admission. Pulse is 80, blood pressure 120/57. GENERAL: She is resting comfortably. Her is at bedside. Communicating with her using a white board to write on. LUNGS: Clear. HEART: Regular rate and rhythm without clicks or murmurs. ABDOMEN: Soft and nontender. There is no rebound. There is no guarding. EXTREMITIES: No clubbing, cyanosis, or edema. LABORATORY DATA: Yesterday, sodium was 138, potassium 4.2, BUN and creatinine 43 and 3.450. Anion gap was 12. Liver function tests normal. Albumin 2.7, protein 5.7, PTH 392, procalcitonin 14. White count 6.6. Those are liver tests and labs reviewed from yesterday. Today, the BUN and creatinine increased to 53 and 4.3. White count is 9.5, hemoglobin 7.2, platelet count 308, MCV 87. Hemoccult negative. ASSESSMENT: 1. No signs of acute gastrointestinal bleeding. She has been on a PPI, making ulcer disease unlikely. She is up-to-date on colonoscopies. There has been no sign of rectal bleeding. Anemia is more likely multifactorial, related to rapid decline in renal function. She may have issues with B12 and iron absorption with her gastric sleeve and it should be looked into. At this point in time, I would not recommend repeat endoscopy. 2. Recurrent pneumonia. She may have a component of aspiration. She had a normal modified barium swallow. More likely, she has a component of gastroparesis with her diabetes and previous gastric sleeve. She should not eat within 5 hours of lying down and she will be on a low-residue diet. For further concerns about gastric outlet issues, she could have an upper GI series, but again with her pneumonia, it would not be a good time to sedate her for an endoscopy. 3. Prior history of polyps, up-to-date on screening. Again, no need to repeat this at this time. 4. Obviously if her pneumonia issues are turned out to be vasculitis mediated, then we could re-evaluate the issues with swallowing and her stomach, but I suspect this is probably recurrent aspiration. We will discuss with Pulmonary. Job ID: [id number]
[2019-04-02 04:39] LABS: #Eosinphils 0.1 thou/uL (0.0-0.7); #Lymphocytes 1.1 thou/uL (1.20-3.40); #Monocytes 0.5 thou/uL (0.11-0.59); #Neutrophils 6.1 thou/uL (1.40-6.50); %Basophils 0.3 % (0.0-1.0); %Eosinophils 1.6 % (0.0-10.0); %Lymphocytes 13.7 % (21.0-51.0); %Monocytes 6.7 % (0.0-10.0); %Neutrophils 77.6 % (42.0-75.0); Hemoglobin 7.1 g/dL (12.0-16.0); Mean Corpuscular HGB CONC 32.3 g/dL (32.0-36.0); Mean Corpuscular Hemoglobin 28.5 pg (27.0-31.0); Mean Corpuscular Volume 88.3 fL (78.0-98.0); Mean Platelet Volume 6.4 fL (7.4-10.4); Platelet Count 308 thou/uL (130-400); White Blood Cell (WBC) Count 7.9 thou/uL (4.8-10.8)
[2019-04-02 04:59] LABS: Anion Gap 17 mmol/L (10-20); BUN (Urea Nitrogen) 56 mg/dL (9.8-20.1); Calc. Creatinine Clearance 16 mL/min (70-130); Calcium 7.8 mg/dL (7.8-10.44); Carbon Dioxide 17 mmol/L (23-31); Chloride 109 mmol/L (98-107); Estimated GFR-MDRD 9; Glucose 102 mg/dL (80-115); Iron 14 ug/dL (50-170); Iron 15 ug/dL (50-170); Iron Binding Capacity, Total 201 mcg/dL (265-497); Iron Binding Capacity, Total 204 mcg/dL (265-497); Potassium 4.7 mmol/L (3.5-5.1); Sodium 138 mmol/L (136-145)
[2019-04-02 05:34] LABS: Ferritin 152.72 ng/mL (10-291)
[2019-04-02] MEDS: Piperacillin/Tazobactam 2.25 GM in Sodium Chloride 0.9% 100 ML IVPB SCH ×3 (05:42→18:03)
[2019-04-02] MEDS: Levothyroxine Sodium 125 MCG TAB PO SCH (05:44)
--- NOTE | 2019-04-02 09:19 | PRG ---
DATE OF SERVICE: 04/02/2019 SUBJECTIVE: The patient is doing better. She had no acute complaints. OBJECTIVE: VITAL SIGNS: Temperature 98.9, pulse 97, respirations 16, O2 saturation 95% on 1.5 L, and blood pressure 156/70. HEENT: Unremarkable. NECK: No adenopathy or JVD. LUNGS: Clear without wheezing. CARDIAC: S1, S2. Regular. ABDOMEN: Soft. EXTREMITIES: Trace edema. LABORATORY DATA: White blood cell count 7.9, hematocrit 22.1, and platelet count 309. Sodium 138, potassium 4.7, chloride 109, CO2 of 17, BUN 56, creatinine 4.7, glucose 102. ASSESSMENT: 1. Acute hypoxic respiratory failure. 2. Left upper lobe pneumonia, thought to be aspiration in origin. 3. Renal failure. 4. Severe anemia. PLAN: Vasculitis panel has been negative so far. She seems to be responding to the antibiotics. She tells me that Nephrology wants to give her more fluid. From a pulmonary standpoint, we are waiting for results of ANCA evaluation. She is finishing out her antibiotics. I anticipate that she may be able to go home or to rehab soon. Job ID: [id number]
[2019-04-02] MEDS: Aspirin 81 mg Enteric Coated Tablet PO SCH (09:47)
[2019-04-02] MEDS: Calcium Carbonate 500 MG TAB PO SCH (09:47)
[2019-04-02] MEDS: Azelastine 137 MCG/Spray 30 ML NS SCH ×2 (09:47→20:55)
[2019-04-02] MEDS: Insulin Glargine 16 UNITS in Pre-Filled Syringe 1 EACH SC SCH (09:48)
[2019-04-02] MEDS: Heparin 5,000 UNITS/ML VIAL SC SCH ×2 (09:48→20:55)
[2019-04-02] MEDS: Folic Acid/Vit B Comp W-C PO SCH (09:48)
[2019-04-02] MEDS: Liothyronine Sodium 5 MCG TAB PO SCH (09:49)
[2019-04-02] MEDS: NIFEdipine XL 60 MG TAB PO SCH (09:49)
[2019-04-02] MEDS: Saccharomyces boulardii 250 MG CAP PO SCH (09:51)
[2019-04-02] MEDS: Metoprolol Tartrate 25 MG TAB PO SCH ×2 (09:51→20:54)
[2019-04-02] MEDS: Sodium Chloride 0.9% 1,000 ML IV SCH (10:03)
[2019-04-02] MEDS: HumaLOG 300 UNITS/3 ML VIAL SC PRN (11:44)
--- NOTE | 2019-04-02 14:35 | PRG ---
DATE OF SERVICE: 04/02/2019 SUBJECTIVE: The patient is seen and examined at bedside. She seems to be doing better. She just had a shower and she is off oxygen at this point. OBJECTIVE: VITAL SIGNS: Blood pressure is 152/68, pulse is 85, respiratory rate is 16. Her pulse oximetry is 90 on room air and she is placed back on 2 L by nasal cannula and she is up to 93 to 94. HEENT: Her head is atraumatic and normocephalic. Eyes are PERRLA. Sclerae are nonicteric. LUNGS: Left mid lung with rales and crackles. Few wheezes present at the bases bilaterally. HEART: S1 and S2, normal. Somewhat irregular. No S3. No S4. ABDOMEN: Soft. Mildly distended. EXTREMITIES: 1+ peripheral edema similar bilaterally. NEUROLOGIC: She is alert and oriented x4. She is hard of hearing. She is moving her all 4 extremities. There are no any motor deficits. LABORATORY DATA: Showed white count of 7.9, hemoglobin 7.1, hematocrit 22.1, and platelet count is 308. Sodium of 138, potassium 4.7, chloride 109, CO2 of 17, creatinine 4.79. Glycemia is ranging from 116 to 179. Iron 14, TIBC 201, percent saturation is 7, ferritin 152. Vitamin B12 is 481 and folic acid 17.1. Occult blood test done and it is negative. Blood cultures x2 negative. Urine culture x1 negative. IMPRESSION: 1. Recurrent pneumonia, most likely related to aspiration. 2. Acute respiratory failure with hypoxia secondary to underlying pneumonia. 3. Acute on chronic kidney failure, worsening. Nephrology decided to start gentle hydration with 50 mL of IV fluids. 4. Metabolic acidosis. 5. Anemia of renal disease plus possible alveolar hemorrhage per engineering lecturer. 6. Demand ischemia. 7. Hypothyroidism. 8. Diabetes mellitus, type 2. PLAN: The patient was evaluated by Dr. Gisselle LOMBARDI, who does not recommend any further investigation. This is most likely anemia related to her chronic kidney failure. We will continue the current regimen with antibiotics. We will start her on gentle hydration as per Nephrology recommendation and continue her PT and OT. Job ID: [id number]
--- NOTE | 2019-04-02 14:36 | PRG ---
DATE OF SERVICE: 04/02/2019 SUBJECTIVE: Patient was seen and examined at bedside and overnight events noted. Patient denies any shortness of breath or chest pain or palpitation. No history of nausea or vomiting or diarrhea or fever or chills or cramps. OBJECTIVE: GENERAL: This is an obese female, in no apparent distress. VITAL SIGNS: Temperature 98.5, pulse 85, respiratory rate 16, and blood pressure 152/68. HEENT: Atraumatic, normocephalic. Oral mucosa is moist NECK: Supple. CARDIOVASCULAR: S1, S2 heard. Rate and rhythm regular. RESPIRATORY: Clear to auscultation. GASTROINTESTINAL: Abdomen is soft. MUSCULOSKELETAL: No tenderness. No edema. DERMATOLOGIC: No skin rash. NEUROLOGIC: Alert and awake and oriented X3. No focal neurologic deficits. Moving all the extremities. PSYCHIATRIC: Mood and affect normal. LABORATORY DATA: Potassium 4.7, BUN is 56, and creatinine is 4.7. ASSESSMENT AND PLAN: 1. Acute kidney injury on chronic kidney disease, stage 4, with worsening labs, even though on IV fluids. We will check renal ultrasound. Medication list reviewed and no nephrotoxins identified. We will continue to follow. No acute indication for dialysis acidosis. We will monitor. 2. Edema. 3. History of hypertension. 4. Anemia of chronic disease. Prognosis guarded. Might need to start on dialysis if renal function with no significant improvement. We will continue to follow. Avoid nephrotoxins and continue supportive care including antibiotics. We will stop IV fluids for now since it is not helping. We will check renal ultrasound. Job ID: [id number]
--- NOTE | 2019-04-02 14:54 | ULT ---
Renal sonogram HISTORY: Flank pain. FINDINGS: Right kidney is 9.7 cm length. Left is 2.2 cm. Slight cortical thinning and increased echog enicity bilaterally. No hydronephrosis. Urinary bladder is unremarkable. Left ureteral jets documented. Right ureteral jet not well seen. IMPRESSION: Mild bilateral cortical atrophy of the kidneys. No evidence of urinary tract obstruction.
[2019-04-02] MEDS ORDERED: Iron, Sodium Ferric Gluconate 250 MG in Sodium Chloride 0.9% 100 ML IVPB SCH (15:30)
--- NOTE | 2019-04-02 16:01 | PRG ---
DATE OF SERVICE: 04/02/2019 SUBJECTIVE: Ms. Porter is without complaints. She has had a little bit nosebleed, which the nurse attributes it was very small amount, likely related to her nasal cannula. She is breathing okay. She is eating okay. She has had no hematemesis, melena, or hematochezia. OBJECTIVE: VITAL SIGNS: Temperature 98, pulse 89, blood pressure 159/73. LUNGS: Clear. ABDOMEN: Protuberant, soft, nontender. EXTREMITIES: Reveal no clubbing or cyanosis. Trace edema. LABORATORY DATA: White count 7.9, hemoglobin 7.1, platelet count 308. Iron 14, TIBC 201, saturation 7, ferritin 152, B12 of 481, folate 17. Rheumatologic workup so far negative. ANCA is pending. ASSESSMENT: 1. Anemia likely multifactorial. Iron studies more consistent with chronic disease. There is a low iron saturation, but her TIBC is very low as well. It would be reasonable to give her a course of IV iron as she has had a gastric sleeve and likely does not absorb iron well. She is up-to-date on colon cancer screening. She has negative Hemoccult and she has no overt upper GI symptoms. 2. She likely does have aspiration pneumonia probably related to her sleeve and a component of gastroparesis. We will consider upper endoscopy or upper GI on Friday depending on her clinical course. 3. Reluctant to intervene endoscopically. Presently, she is requiring oxygen, is in the hospital with pneumonia, has had progressive renal failure, and has no signs of acute bleeding. We will follow along with you. Job ID: [id number]
[2019-04-02] MEDS: ICOSAPENT ETHYL PO SCH ×4 (17:42→17:57)
[2019-04-02 17:44] LABS: Creatinine, Urine 40.81 mg/dL (47-110)
[2019-04-02] MEDS: Atorvastatin Calcium 40 MG TAB PO SCH (20:54)
[2019-04-02] MEDS: Insulin Glargine 13 UNITS in Pre-Filled Syringe 1 EACH SC SCH (20:55)
[2019-04-02] MEDS: Gabapentin 300 MG CAP PO SCH (20:55)
[2019-04-03] MEDS: Piperacillin/Tazobactam 2.25 GM in Sodium Chloride 0.9% 100 ML IVPB SCH ×4 (00:15→17:55)
[2019-04-03 05:04] LABS: Anion Gap 17 mmol/L (10-20); BUN (Urea Nitrogen) 56 mg/dL (9.8-20.1); Calc. Creatinine Clearance 17 mL/min (70-130); Carbon Dioxide 17 mmol/L (23-31); Chloride 109 mmol/L (98-107); Estimated GFR-MDRD 9; Glucose 77 mg/dL (80-115); Potassium 4.9 mmol/L (3.5-5.1); Sodium 138 mmol/L (136-145)
[2019-04-03] MEDS: Levothyroxine Sodium 125 MCG TAB PO SCH (05:28)
[2019-04-03] MEDS: Aspirin 81 mg Enteric Coated Tablet PO SCH (08:38)
[2019-04-03] MEDS: Azelastine 137 MCG/Spray 30 ML NS SCH ×2 (08:38→21:59)
[2019-04-03] MEDS: NIFEdipine XL 60 MG TAB PO SCH (08:39)
[2019-04-03] MEDS: Calcium Carbonate 500 MG TAB PO SCH (08:39)
[2019-04-03] MEDS: Liothyronine Sodium 5 MCG TAB PO SCH (08:39)
[2019-04-03] MEDS: Folic Acid/Vit B Comp W-C PO SCH (08:39)
[2019-04-03] MEDS: Metoprolol Tartrate 25 MG TAB PO SCH ×2 (08:39→20:44)
[2019-04-03] MEDS: Saccharomyces boulardii 250 MG CAP PO SCH (08:40)
[2019-04-03] MEDS: Heparin 5,000 UNITS/ML VIAL SC SCH ×2 (08:41→20:45)
[2019-04-03] MEDS: Insulin Glargine 16 UNITS in Pre-Filled Syringe 1 EACH SC SCH (08:41)
--- NOTE | 2019-04-03 13:12 | PRG ---
DATE OF SERVICE: 04/03/2019 SUBJECTIVE: Sofia Porter this morning still got a cough, still short of breath. OBJECTIVE: VITAL SIGNS: Temperature is 98, pulse 72, blood pressure 150/66, saturations are 98% on 2 L, and respirations 18. CHEST: No wheezing or crackles. CARDIAC: Normal S1 and S2. No gallops. ABDOMEN: No masses. LABORATORY DATA: Creatinine is 4.8. ASSESSMENT: 1. Status post respiratory failure. 2. Pneumonia, presumed aspiration. 3. Chronic renal failure. 4. Severe deconditioning. 5. Obesity. PLAN: Continue neb treatments, Zosyn antibiotic probably can be switched over to oral medication in the next day or two. We will follow. Job ID: [id number]
[2019-04-03] MEDS ORDERED: Sodium Bicarbonate 150 MEQ in Dextrose 5% in Water 1,000 ML IV SCH (13:15)
[2019-04-03] MEDS ORDERED: Sodium Bicarbonate 150 MEQ in Dextrose 5% in Water 850 ML IV SCH (13:45)
--- NOTE | 2019-04-03 14:03 | PRG ---
DATE OF SERVICE: 04/03/2019 SUBJECTIVE: Patient was seen and examined at bedside and overnight events noted. Patient denies any shortness of breath or chest pain or palpitation. No history of nausea or vomiting or diarrhea or fever or chills or cramps. OBJECTIVE: GENERAL: This is an obese female, in no apparent distress. VITAL SIGNS: Temperature 98.1. Pulse 62. Respiratory rate 18. Blood pressure 151/66. HEENT: Atraumatic, normocephalic. Oral mucosa is moist NECK: Supple. CARDIOVASCULAR: S1, S2 heard. Rate and rhythm regular. RESPIRATORY: Clear to auscultation. GASTROINTESTINAL: Abdomen is soft. MUSCULOSKELETAL: No tenderness. No edema. DERMATOLOGIC: No skin rash. NEUROLOGIC: Alert and awake and oriented X3. No focal neurologic deficits. Moving all the extremities. PSYCHIATRIC: Mood and affect normal. LABORATORY DATA: Potassium 4.9, BUN is 56, creatinine is 4.8. ASSESSMENT AND PLAN: 1. Acute kidney injury on chronic kidney stage 4, most likely secondary to sepsis. Renal ultrasound done and mild bilateral cortical thinning. No obstruction. 2. Plan is to continue IV fluids. No acute indication for dialysis. Renal function may be leveling out. 3. Edema, controlled. 4. Hypertension. 5. Anemia of chronic disease. 6. Acidosis. We will add bicarb drip today. 7. Plan to start bicarb drip and monitor renal function. Avoid nephrotoxins. Job ID: [id number]
--- NOTE | 2019-04-03 16:20 | PDOC.HOSPP ---
- Subjective Encounter Date: 04/03/19 Encounter Time: 16:18 Subjective: Doing ok. Doesn't like the food. Has a hard time sleeping at night, but sleeping during the day. - Objective Vital Signs & Weight: Vital Signs (12 hours) Temp Pulse Pulse Resp BP BP BP 04/03/19 15:46 98.3 F 80 17 04/03/19 13:35 82 169/74 H 04/03/19 13:30 81 16 04/03/19 12:00 98.1 F 82 17 151/66 H 04/03/19 08:39 91 147/67 H 04/03/19 07:18 98.7 F 89 18 150/66 H 04/03/19 07:00 96 14 BP Pulse Ox Pulse Ox Pulse Ox Pulse Ox 04/03/19 15:46 140/63 97 04/03/19 13:35 93 L 91 L 89 L 04/03/19 13:30 04/03/19 12:00 98 04/03/19 08:39 04/03/19 07:18 94 L 04/03/19 07:00 94 L Weight Admit Weight 205 lb 11.06 oz Weight 220 lb 4.8 oz I&O: 04/02/19 04/03/19 04/04/19 06:59 06:59 06:59 Intake Total 1040 Output Total 1100 Balance -60 Result Diagrams: 04/02/19 04:20 04/03/19 04:23 Additional Labs: Accuchecks 04/03/19 04/03/19 04/02/19 10:46 05:45 21:04 POC Glucose 120 H 86 163 H 04/02/19 16:21 POC Glucose 130 H Hospitalist ROS - Medication Medications: Active Medications Generic Name Dose Route Start Last Admin Trade Name Freq PRN Reason Stop Dose Admin Acetaminophen 650 mg 03/30/19 12:27 04/01/19 20:04 Tylenol PO 650 mg Q4H PRN Administration Headache/Fever/Mild Pain (1-3) Albuterol/Ipratropium 3 ml 03/30/19 13:00 04/03/19 13:30 Duoneb NEB 3 ml [id number] FLORENCIO Administration Aspirin 81 mg 03/31/19 09:00 04/03/19 08:38 Ecotrin PO 81 mg DAILY FLORENCIO Administration Atorvastatin Calcium 40 mg 03/31/19 21:00 04/02/19 20:54 Lipitor PO 40 mg HS FLORENCIO Administration Azelastine HCl 0 ml 03/30/19 21:00 04/03/19 08:38 Azelastine NS 1 spr BID FLORENCIO Administration Calcium Carbonate 500 mg 03/31/19 09:00 04/03/19 08:39 Oscal-500 PO 500 mg DAILY FLORENCIO Administration Cholecalciferol 5,000 units 03/31/19 09:00 04/03/19 08:39 Vitamin D3 PO 5,000 units DAILY FLORENCIO Administration Gabapentin 300 mg 03/30/19 21:00 04/02/19 20:55 Neurontin PO 300 mg QPM FLORENCIO Administration Heparin Sodium (Porcine) 5,000 units 04/01/19 21:00 04/03/19 08:41 Heparin SC 5,000 units BID FLORENCIO Administration Piperacillin Sod/Tazobactam 100 mls @ 200 mls/hr 03/30/19 18:00 04/03/19 12: 49 Sod 2.25 gm/ Sodium Chloride IVPB 100 mls Q6HR FLORENCIO Administration Insulin Glargine 13 units/ 0.13 mls @ 0 mls/hr 03/30/19 21:00 04/02/19 20:55 Miscellaneous Medication SC 0.13 mls HS FLORENCIO Administration Insulin Glargine 16 units/ 0.16 mls @ 0 mls/hr 03/31/19 09:00 04/03/19 08:41 Miscellaneous Medication SC 0.16 mls QAM FLORENCIO Administration Insulin Human Lispro 0 units 03/30/19 12:27 04/02/19 11:44 Humalog SC 2 unit .MODERATE SLIDING SC PRN Administration Moderate Correctional Scale Insulin Human Lispro 0 units 03/30/19 12:27 03/31/19 20:43 Humalog SC 2 unit .BEDTIME SLIDING SC PRN Administration Bedtime Correctional Scale Levothyroxine Sodium 125 mcg 03/31/19 06:00 04/03/19 05:28 Synthroid PO 125 mcg 0600 FLORENCIO Administration Liothyronine Sodium 5 mcg 03/31/19 09:00 04/03/19 08:39 Cytomel PO 5 mcg DAILY FLORENCIO Administration Metoprolol Tartrate 25 mg 03/31/19 21:00 04/03/19 08:39 Lopressor PO 25 mg BID FLORENCIO Administration Nifedipine 60 mg 04/01/19 09:00 04/03/19 08:39 Procardia Xl PO 60 mg DAILY FLORENCIO Administration Pantoprazole Sodium 40 mg 03/31/19 09:00 04/03/19 08:40 Protonix PO 40 mg DAILY FLORENCIO Administration Saccharomyces Boulardii 250 mg 03/31/19 09:00 04/03/19 08:40 Florastor PO 250 mg DAILY FLORENCIO Administration Sertraline HCl 50 mg 03/31/19 09:00 04/03/19 08:40 Zoloft PO 50 mg DAILY FLORENCIO Administration Vitamin B Complex/Vit C/Folic Acid 1 tab 03/31/19 09:00 04/03/19 08:39 Nephro-Osiel Tablet PO 1 tab DAILY FLORENCIO Administration - Exam General Appearance: NAD, awake alert General - other findings: Obese Heart: RRR, no murmur, no gallops, no rubs, normal peripheral pulses Respiratory: CTAB, no wheezes, no rales, no ronchi, normal chest expansion, no tachypnea, normal percussion Gastrointestinal: soft, non-tender, non-distended, normal bowel sounds, no palpable masses, no hepatomegaly, no splenomegaly, no bruit Extremities: no cyanosis, no clubbing, no edema Skin: normal turgor Musculoskeletal: generalized weakness Psychiatric: normal affect, normal behavior, A&O x 3 Hosp A/P (1) Acute on chronic kidney failure Code(s): N17.9 - ACUTE KIDNEY FAILURE, UNSPECIFIED; N18.9 - CHRONIC KIDNEY DISEASE, UNSPECIFIED Status: Acute (2) PNA (pneumonia) Code(s): J18.9 - PNEUMONIA, UNSPECIFIED ORGANISM Status: Acute Qualifiers: Pneumonia type: due to unspecified organism Laterality: bilateral Lung location: upper lobe of lung Qualified Code(s): J18.9 - Pneumonia, unspecified organism (3) Anemia, normocytic normochromic Code(s): D64.9 - ANEMIA, UNSPECIFIED Status: Chronic (4) Anxiety and depression Code(s): F41.9 - ANXIETY DISORDER, UNSPECIFIED; F32.9 - MAJOR DEPRESSIVE DISORDER, SINGLE EPISODE, UNSPECIFIED Status: Chronic (5) CKD (chronic kidney disease) stage 4, GFR 15-29 ml/min Code(s): N18.4 - CHRONIC KIDNEY DISEASE, STAGE 4 (SEVERE) Status: Chronic (6) Diabetes type 2, controlled Code(s): E11.9 - TYPE 2 DIABETES MELLITUS WITHOUT COMPLICATIONS Status: Chronic Qualifiers: Diabetes mellitus continuous churn buttermaker insulin use: with continuous churn buttermaker use Diabetes mellitus complication detail: with chronic kidney disease Chronic kidney disease stage: stage 4 (severe) (7) Dyslipidemia Code(s): E78.5 - HYPERLIPIDEMIA, UNSPECIFIED Status: Chronic (8) Hypertension Code(s): I10 - ESSENTIAL (PRIMARY) HYPERTENSION Status: Chronic Qualifiers: Hypertension type: essential hypertension Qualified Code(s): I10 - Essential (primary) hypertension (9) Hypothyroidism Code(s): E03.9 - HYPOTHYROIDISM, UNSPECIFIED Status: Chronic (10) Myocardial infarction Code(s): I21.9 - ACUTE MYOCARDIAL INFARCTION, UNSPECIFIED Status: Acute Qualifiers: Myocardial infarction type: type 2 Qualified Code(s): I21.A1 - Myocardial infarction type 2 - Plan Doing better. Continue to increase activity. Wean oxygen as tolerated. Continue IV abx. Hopefully can transition to po soon. Continue dietary modifications. Renal function flat today. Continue IV with added bicarb per nephrology.
[2019-04-03] MEDS: Atorvastatin Calcium 40 MG TAB PO SCH (20:44)
[2019-04-03] MEDS: Gabapentin 300 MG CAP PO SCH (20:44)
[2019-04-03] MEDS: Insulin Glargine 13 UNITS in Pre-Filled Syringe 1 EACH SC SCH (20:46)
[2019-04-04] MEDS: Piperacillin/Tazobactam 2.25 GM in Sodium Chloride 0.9% 100 ML IVPB SCH ×2 (00:13→04:58)
[2019-04-04] MEDS: Levothyroxine Sodium 125 MCG TAB PO SCH (04:55)
[2019-04-04 04:58] LABS: Anion Gap 17 mmol/L (10-20); Calc. Creatinine Clearance 16 mL/min (70-130); Carbon Dioxide 19 mmol/L (23-31); Chloride 106 mmol/L (98-107); Estimated GFR-MDRD 8; Glucose 122 mg/dL (80-115); Potassium 4.4 mmol/L (3.5-5.1); Sodium 138 mmol/L (136-145)
[2019-04-04 04:59] LABS: BUN (Urea Nitrogen) 54 mg/dL (9.8-20.1)
[2019-04-04 06:17] LABS: #Eosinphils 0.1 thou/uL (0.0-0.7); #Lymphocytes 0.8 thou/uL (1.20-3.40); #Monocytes 0.6 thou/uL (0.11-0.59); #Neutrophils 5.4 thou/uL (1.40-6.50); %Basophils 0.2 % (0.0-1.0); %Eosinophils 2.1 % (0.0-10.0); %Lymphocytes 11.6 % (21.0-51.0); %Monocytes 7.9 % (0.0-10.0); %Neutrophils 78.3 % (42.0-75.0); Hemoglobin 7.4 g/dL (12.0-16.0); Mean Corpuscular Hemoglobin 28.3 pg (27.0-31.0); Mean Corpuscular Volume 88.6 fL (78.0-98.0); Mean Platelet Volume 6.6 fL (7.4-10.4); Platelet Count 319 thou/uL (130-400); RBC Distribution Width 15.3 % (11.5-14.5); Red Blood Cell (RBC) Count 2.61 mill/uL (4.20-5.40); White Blood Cell (WBC) Count 6.9 thou/uL (4.8-10.8)
[2019-04-04] MEDS: Folic Acid/Vit B Comp W-C PO SCH (08:29)
[2019-04-04] MEDS: Insulin Glargine 16 UNITS in Pre-Filled Syringe 1 EACH SC SCH (08:29)
[2019-04-04] MEDS: Saccharomyces boulardii 250 MG CAP PO SCH (08:29)
[2019-04-04] MEDS: Heparin 5,000 UNITS/ML VIAL SC SCH ×2 (08:29→21:41)
[2019-04-04] MEDS: Aspirin 81 mg Enteric Coated Tablet PO SCH (08:29)
[2019-04-04] MEDS: Metoprolol Tartrate 25 MG TAB PO SCH ×2 (08:29→21:41)
[2019-04-04] MEDS: Calcium Carbonate 500 MG TAB PO SCH (08:29)
[2019-04-04] MEDS: NIFEdipine XL 60 MG TAB PO SCH (08:30)
[2019-04-04] MEDS: Liothyronine Sodium 5 MCG TAB PO SCH (08:30)
[2019-04-04] MEDS: Azelastine 137 MCG/Spray 30 ML NS SCH ×2 (10:41→22:07)
--- NOTE | 2019-04-04 12:22 | PRG ---
DATE OF SERVICE: 04/04/2019 SUBJECTIVE: Patient was seen and examined at bedside and overnight events noted. Patient denies any shortness of breath or chest pain or palpitation. No history of nausea or vomiting or diarrhea or fever or chills or cramps. OBJECTIVE: GENERAL: This is an obese female, in no apparent distress. VITAL SIGNS: Temperature 97.7. Heart rate 77. Respiratory rate 20. Blood pressure 130/61. HEENT: Atraumatic, normocephalic. Oral mucosa is moist. NECK: Supple. CARDIOVASCULAR: S1, S2 heard. Rate and rhythm regular. RESPIRATORY: Clear to auscultation. GASTROINTESTINAL: Abdomen is soft. MUSCULOSKELETAL: No tenderness. No edema. DERMATOLOGIC: No skin rash. NEUROLOGIC: Alert and awake and oriented x3. No focal neurologic deficits. Moving all the extremities. PSYCHIATRIC: Mood and affect normal. LABORATORY DATA: Potassium 4.4, BUN is 54, and creatinine is 5.03. ASSESSMENT AND PLAN: 1. Acute kidney injury on chronic kidney disease, stage 4. Creatinine continues to get worse. I did talk with Dr. Ascencio to stop antibiotics at this point. she had 5 days of antibiotics and culture remains negative. Continue oral hydration. 2. Edema, controlled. 3. Hypertension. 4. Anemia of chronic disease. 5. Acidosis, better. Plan is and monitor renal function. No acute indication for dialysis, but if renal function is not better, might need renal replacement therapy. Family updated. Job ID: [id number]
--- NOTE | 2019-04-04 12:37 | PRG ---
DATE OF SERVICE: 04/04/2019 SUBJECTIVE: This morning, she states she is better. She walked to the bathroom, but apparently became acutely short of breath back on her oxygen. OBJECTIVE: VITAL SIGNS: Saturations are 92% on 1 L, temperature 97, pulse 77, respiratory rate 19, blood pressure 130/61. CHEST: Decreased breath sounds. No wheezing. CARDIAC: Normal S1, S2. No gallops. ABDOMEN: No masses. LABORATORY DATA: Creatinine is 5. White count is normal. H and H are low at 7 and 23. IMPRESSION: 1. Morbid obesity. 2. Renal failure. 3. Pneumonia, left upper lung. 4. Anemia. Continue PT, supportive care. Antibiotics. We will follow. Job ID: [id number]
--- NOTE | 2019-04-04 13:50 | PDOC.HOSPP ---
- Subjective Subjective: Very intolerant of the modified diet. Trying to force herself to eat it, but really can't. Still has some hypoxia off the oxygen. - Objective Vital Signs & Weight: Vital Signs (12 hours) Temp Pulse Resp BP Pulse Ox 04/04/19 12:19 75 12 97 04/04/19 11:08 97.7 F 77 19 130/61 92 L 04/04/19 08:20 97.8 F 91 20 144/63 H 92 L 04/04/19 07:05 79 14 97 04/04/19 03:37 97.4 F L 82 18 135/65 91 L Weight Admit Weight 205 lb 11.06 oz Weight 218 lb 3.2 oz I&O: 04/03/19 04/04/19 04/05/19 06:59 06:59 06:59 Intake Total 1040 240 Output Total 1100 Balance -60 240 Result Diagrams: 04/04/19 06:01 04/04/19 03:56 Additional Labs: Accuchecks 04/04/19 04/04/19 04/03/19 10:33 05:20 20:16 POC Glucose 159 H 110 193 H 04/03/19 16:34 POC Glucose 145 H Hospitalist ROS - Medication Medications: Active Medications Generic Name Dose Route Start Last Admin Trade Name Freq PRN Reason Stop Dose Admin Acetaminophen 650 mg 03/30/19 12:27 04/01/19 20:04 Tylenol PO 650 mg Q4H PRN Administration Headache/Fever/Mild Pain (1-3) Albuterol/Ipratropium 3 ml 03/30/19 13:00 04/04/19 12:19 Duoneb NEB 3 ml [id number] FLORENCIO Administration Aspirin 81 mg 03/31/19 09:00 04/04/19 08:29 Ecotrin PO 81 mg DAILY FLORENCIO Administration Atorvastatin Calcium 40 mg 03/31/19 21:00 04/03/19 20:44 Lipitor PO 40 mg HS FLORENCIO Administration Azelastine HCl 0 ml 03/30/19 21:00 04/04/19 10:41 Azelastine NS Not Given BID FLORENCIO Calcium Carbonate 500 mg 03/31/19 09:00 04/04/19 08:29 Oscal-500 PO 500 mg DAILY FLORENCIO Administration Cholecalciferol 5,000 units 03/31/19 09:00 04/04/19 08:28 Vitamin D3 PO 5,000 units DAILY FLORENCIO Administration Gabapentin 300 mg 03/30/19 21:00 04/03/19 20:44 Neurontin PO 300 mg QPM FLORENCIO Administration Heparin Sodium (Porcine) 5,000 units 04/01/19 21:00 04/04/19 08:29 Heparin SC 5,000 units BID FLORENCIO Administration Insulin Glargine 13 units/ 0.13 mls @ 0 mls/hr 03/30/19 21:00 04/03/19 20:46 Miscellaneous Medication SC 0.13 mls HS FLORENCIO Administration Insulin Glargine 16 units/ 0.16 mls @ 0 mls/hr 03/31/19 09:00 04/04/19 08:29 Miscellaneous Medication SC 0.16 mls QAM FLORENCIO Administration Insulin Human Lispro 0 units 03/30/19 12:27 04/02/19 11:44 Humalog SC 2 unit .MODERATE SLIDING SC PRN Administration Moderate Correctional Scale Insulin Human Lispro 0 units 03/30/19 12:27 03/31/19 20:43 Humalog SC 2 unit .BEDTIME SLIDING SC PRN Administration Bedtime Correctional Scale Levothyroxine Sodium 125 mcg 03/31/19 06:00 04/04/19 04:55 Synthroid PO 125 mcg 0600 FLORENCIO Administration Liothyronine Sodium 5 mcg 03/31/19 09:00 04/04/19 08:30 Cytomel PO 5 mcg DAILY FLORENCIO Administration Metoprolol Tartrate 25 mg 03/31/19 21:00 04/04/19 08:29 Lopressor PO 25 mg BID FLORENCIO Administration Nifedipine 60 mg 04/01/19 09:00 04/04/19 08:30 Procardia Xl PO 60 mg DAILY FLORENCIO Administration Pantoprazole Sodium 40 mg 03/31/19 09:00 04/04/19 08:29 Protonix PO 40 mg DAILY FLORENCIO Administration Saccharomyces Boulardii 250 mg 03/31/19 09:00 04/04/19 08:29 Florastor PO 250 mg DAILY FLORENCIO Administration Sertraline HCl 50 mg 03/31/19 09:00 04/04/19 08:30 Zoloft PO 50 mg DAILY FLORENCIO Administration Vitamin B Complex/Vit C/Folic Acid 1 tab 03/31/19 09:00 04/04/19 08:29 Nephro-Osiel Tablet PO 1 tab DAILY FLORENCIO Administration - Exam General Appearance: NAD, awake alert General - other findings: obese Neck: supple, symmetric, no JVD, no thyromegaly, no lymphadenopathy, no carotid bruit Heart: RRR, no murmur Respiratory: CTAB, no wheezes, no rales, no ronchi, normal chest expansion, no tachypnea, normal percussion Gastrointestinal: soft, non-tender, non-distended, normal bowel sounds, no palpable masses, no hepatomegaly, no splenomegaly, no bruit Extremities: no cyanosis Neurological: no focal deficits Musculoskeletal: normal tone Psychiatric: normal affect, normal behavior, A&O x 3 Hosp A/P (1) Acute on chronic kidney failure Code(s): N17.9 - ACUTE KIDNEY FAILURE, UNSPECIFIED; N18.9 - CHRONIC KIDNEY DISEASE, UNSPECIFIED Status: Acute (2) PNA (pneumonia) Code(s): J18.9 - PNEUMONIA, UNSPECIFIED ORGANISM Status: Acute Qualifiers: Pneumonia type: due to unspecified organism Laterality: bilateral Lung location: upper lobe of lung Qualified Code(s): J18.9 - Pneumonia, unspecified organism (3) Anemia, normocytic normochromic Code(s): D64.9 - ANEMIA, UNSPECIFIED Status: Chronic (4) Anxiety and depression Code(s): F41.9 - ANXIETY DISORDER, UNSPECIFIED; F32.9 - MAJOR DEPRESSIVE DISORDER, SINGLE EPISODE, UNSPECIFIED Status: Chronic (5) CKD (chronic kidney disease) stage 4, GFR 15-29 ml/min Code(s): N18.4 - CHRONIC KIDNEY DISEASE, STAGE 4 (SEVERE) Status: Chronic (6) Diabetes type 2, controlled Code(s): E11.9 - TYPE 2 DIABETES MELLITUS WITHOUT COMPLICATIONS Status: Chronic Qualifiers: Diabetes mellitus adjunct faculty for medical terminology insulin use: with adjunct faculty for medical terminology use Diabetes mellitus complication detail: with chronic kidney disease Chronic kidney disease stage: stage 4 (severe) (7) Dyslipidemia Code(s): E78.5 - HYPERLIPIDEMIA, UNSPECIFIED Status: Chronic (8) Hypertension Code(s): I10 - ESSENTIAL (PRIMARY) HYPERTENSION Status: Chronic Qualifiers: Hypertension type: essential hypertension Qualified Code(s): I10 - Essential (primary) hypertension (9) Hypothyroidism Code(s): E03.9 - HYPOTHYROIDISM, UNSPECIFIED Status: Chronic (10) Myocardial infarction Code(s): I21.9 - ACUTE MYOCARDIAL INFARCTION, UNSPECIFIED Status: Acute Qualifiers: Myocardial infarction type: type 2 Qualified Code(s): I21.A1 - Myocardial infarction type 2 (11) Dysphagia Code(s): R13.10 - DYSPHAGIA, UNSPECIFIED Status: Acute (12) Acute worsening of stage 3 chronic kidney disease Code(s): N18.3 - CHRONIC KIDNEY DISEASE, STAGE 3 (MODERATE) Status: Acute (13) Metabolic acidosis Code(s): E87.2 - ACIDOSIS Status: Chronic (14) Obesity (BMI 30-39.9) Code(s): E66.9 - OBESITY, UNSPECIFIED Status: Chronic - Plan Continue to increase activity. Wean oxygen as tolerated. Discussed with Dr. Cotton. She has had five days of abx. She has remained afebrile. WBC normal. Will DC abx as there is some concern that the abx are impacting the renal function negatively. Continue dietary modifications. Renal function trending slightly worse. Continue IV with added bicarb per nephrology. Consult bessemer bottom maker to help her cope with the dietary restrictions/modifications.
[2019-04-04] MEDS: Atorvastatin Calcium 40 MG TAB PO SCH (21:40)
[2019-04-04] MEDS: Cefdinir 300 MG CAP PO SCH (21:40)
[2019-04-04] MEDS: Gabapentin 300 MG CAP PO SCH (21:41)
[2019-04-04] MEDS: Insulin Glargine 13 UNITS in Pre-Filled Syringe 1 EACH SC SCH (21:41)
[2019-04-05 04:57] LABS: Anion Gap 16 mmol/L (10-20); BUN (Urea Nitrogen) 53 mg/dL (9.8-20.1); Calc. Creatinine Clearance 16 mL/min (70-130); Calcium 7.8 mg/dL (7.8-10.44); Carbon Dioxide 20 mmol/L (23-31); Chloride 105 mmol/L (98-107); Estimated GFR-MDRD 8; Glucose 100 mg/dL (80-115); Potassium 4.1 mmol/L (3.5-5.1); Sodium 137 mmol/L (136-145)
[2019-04-05] MEDS: Levothyroxine Sodium 125 MCG TAB PO SCH (05:40)
[2019-04-05] MEDS: NIFEdipine XL 60 MG TAB PO SCH (09:10)
[2019-04-05] MEDS: Aspirin 81 mg Enteric Coated Tablet PO SCH (09:10)
[2019-04-05] MEDS: Metoprolol Tartrate 25 MG TAB PO SCH ×2 (09:10→20:26)
[2019-04-05] MEDS: Folic Acid/Vit B Comp W-C PO SCH (09:11)
[2019-04-05] MEDS: Saccharomyces boulardii 250 MG CAP PO SCH (09:11)
[2019-04-05] MEDS: Calcium Carbonate 500 MG TAB PO SCH (09:11)
[2019-04-05] MEDS: Liothyronine Sodium 5 MCG TAB PO SCH (09:12)
[2019-04-05] MEDS: Heparin 5,000 UNITS/ML VIAL SC SCH ×2 (09:13→20:26)
[2019-04-05] MEDS: Insulin Glargine 16 UNITS in Pre-Filled Syringe 1 EACH SC SCH (09:13)
[2019-04-05] MEDS: Azelastine 137 MCG/Spray 30 ML NS SCH ×2 (09:14→20:26)
--- NOTE | 2019-04-05 09:19 | PRG ---
DATE OF SERVICE: 04/05/2019 SUBJECTIVE: The patient seems to be doing reasonably well. She had no acute complaints. OBJECTIVE: VITAL SIGNS: Temperature 97.6, pulse 78, respirations 18, O2 saturation 100% on 2 L, and blood pressure 156/71. HEENT: Unremarkable. NECK: No adenopathy or JVD. CHEST: Clear anteriorly except for the left upper lobe, where she has crackles. ABDOMEN: Soft. EXTREMITIES: No edema. LABORATORY DATA: Sodium 137, potassium 4.1, BUN 53, creatinine 5.1, and glucose 100. ANCA studies are continued to be pending. ASSESSMENT: 1. Left upper lobe pneumonia. 2. Chronic aspiration. 3. Renal failure. Currently, being monitored but not on hemodialysis. PLAN: The patient will continue oral antibiotics until 04/09. Increase activity as tolerated. Job ID: [id number]
[2019-04-05] MEDS: Cefdinir 300 MG CAP PO SCH ×2 (09:32→20:25)
--- NOTE | 2019-04-05 11:04 | PRG ---
DATE OF SERVICE: 04/05/2019 SUBJECTIVE: A 68-year-old female, being seen for acute kidney injury. The patient denied nausea, vomiting, or chest pain. OBJECTIVE: See above. The patient is awake, alert, in no acute distress. VITAL SIGNS: Reviewed. GENERAL APPEARANCE AND MENTAL STATUS: Fair. HEAD/NECK: Normocephalic. Atraumatic. EYES: EOMI. No deformity. EARS: Clear. No ulcers. NOSE: Intact. No lesions. MOUTH: Clear. No discharge. THROAT: Clear. No exudate. LUNGS: Clear. No crackles. CARDIAC: S1, S2. No rub. ABDOMEN: Benign. Bowel sounds positive. GENITALIA/RECTUM: Coppola absent. BACK/EXTREMITIES: Lower extremities, 4+ edema. NEUROLOGICAL: Alert and motor intact. SKIN: LYMPHATICS: ASSESSMENT AND PLAN: Acute kidney injury with chronic kidney disease stage 5. No urgent indication for dialysis. We will follow renal function closely. If the renal function does not improve, we will consider renal replacement therapy. Overall prognosis is poor. Job ID: [id number]
[2019-04-05 14:06] VITALS: BMI 37.3
--- NOTE | 2019-04-05 14:40 | PDOC.HOSPP ---
- Subjective Subjective: Feels well. Eager to go home. Still does not like the food. - Objective Vital Signs & Weight: Vital Signs (12 hours) Temp Pulse Resp BP BP BP Pulse Ox 04/05/19 13:09 68 14 100 04/05/19 11:54 97.6 F 93 18 163/77 H 100 04/05/19 09:52 177/78 H 184/85 H 04/05/19 09:09 97.6 F 88 15 160/72 H 95 04/05/19 07:21 78 18 100 04/05/19 03:10 97.6 F 80 16 156/71 H 93 L Weight Admit Weight 205 lb 11.06 oz Weight 217 lb 3.2 oz I&O: 04/04/19 04/05/19 04/06/19 06:59 06:59 06:59 Intake Total 240 1080 Output Total 1100 Balance 240 -20 Result Diagrams: 04/04/19 06:01 04/05/19 04:13 Additional Labs: Accuchecks 04/05/19 04/05/19 04/05/19 11:01 05:11 03:28 POC Glucose 103 104 72 04/04/19 04/04/19 20:05 16:37 POC Glucose 153 H 134 H Hospitalist ROS - Medication Medications: Active Medications Generic Name Dose Route Start Last Admin Trade Name Freq PRN Reason Stop Dose Admin Acetaminophen 650 mg 03/30/19 12:27 04/01/19 20:04 Tylenol PO 650 mg Q4H PRN Administration Headache/Fever/Mild Pain (1-3) Albuterol/Ipratropium 3 ml 03/30/19 13:00 04/05/19 13:09 Duoneb NEB 3 ml [id number] FLORENCIO Administration Aspirin 81 mg 03/31/19 09:00 04/05/19 09:10 Ecotrin PO 81 mg DAILY FLORENCIO Administration Atorvastatin Calcium 40 mg 03/31/19 21:00 04/04/19 21:40 Lipitor PO 40 mg HS FLORENCIO Administration Azelastine HCl 0 ml 03/30/19 21:00 04/05/19 09:14 Azelastine NS 2 spr BID FLORENCIO Administration Calcium Carbonate 500 mg 03/31/19 09:00 04/05/19 09:11 Oscal-500 PO 500 mg DAILY FLORENCIO Administration Cefdinir 300 mg 04/04/19 21:00 04/05/19 09:32 Omnicef PO 04/09/19 21:01 300 mg BID FLORENCIO Administration Cholecalciferol 5,000 units 03/31/19 09:00 04/05/19 09:09 Vitamin D3 PO 5,000 units DAILY FLORENCIO Administration Gabapentin 300 mg 03/30/19 21:00 04/04/19 21:41 Neurontin PO 300 mg QPM FLORENCIO Administration Heparin Sodium (Porcine) 5,000 units 04/01/19 21:00 04/05/19 09:13 Heparin SC 5,000 units BID FLORENCIO Administration Insulin Glargine 13 units/ 0.13 mls @ 0 mls/hr 03/30/19 21:00 04/04/19 21:41 Miscellaneous Medication SC 0.13 mls HS FLORENCIO Administration Insulin Glargine 16 units/ 0.16 mls @ 0 mls/hr 03/31/19 09:00 04/05/19 09:13 Miscellaneous Medication SC 0.16 mls QAM FLORENCIO Administration Insulin Human Lispro 0 units 03/30/19 12:27 04/02/19 11:44 Humalog SC 2 unit .MODERATE SLIDING SC PRN Administration Moderate Correctional Scale Insulin Human Lispro 0 units 03/30/19 12:27 03/31/19 20:43 Humalog SC 2 unit .BEDTIME SLIDING SC PRN Administration Bedtime Correctional Scale Levothyroxine Sodium 125 mcg 03/31/19 06:00 04/05/19 05:40 Synthroid PO 125 mcg 0600 FLORENCIO Administration Liothyronine Sodium 5 mcg 03/31/19 09:00 04/05/19 09:12 Cytomel PO 5 mcg DAILY FLORENCIO Administration Metoprolol Tartrate 25 mg 03/31/19 21:00 04/05/19 09:10 Lopressor PO 25 mg BID FLORENCIO Administration Nifedipine 60 mg 04/01/19 09:00 04/05/19 09:10 Procardia Xl PO 60 mg DAILY FLORENCIO Administration Pantoprazole Sodium 40 mg 03/31/19 09:00 04/05/19 09:12 Protonix PO 40 mg DAILY FLORENCIO Administration Saccharomyces Boulardii 250 mg 03/31/19 09:00 04/05/19 09:11 Florastor PO 250 mg DAILY FLORENCIO Administration Sertraline HCl 50 mg 03/31/19 09:00 04/05/19 09:11 Zoloft PO 50 mg DAILY FLORENCIO Administration Vitamin B Complex/Vit C/Folic Acid 1 tab 03/31/19 09:00 04/05/19 09:11 Nephro-Osiel Tablet PO 1 tab DAILY FLORENCIO Administration - Exam General Appearance: NAD, awake alert General - other findings: Obese. Heart: RRR, no murmur, no gallops, no rubs, normal peripheral pulses Respiratory: no wheezes, no tachypnea Respiratory - other findings: JUDE rales, minimal LLL rales. Gastrointestinal: soft, non-tender, non-distended, normal bowel sounds, no palpable masses, no hepatomegaly, no splenomegaly, no bruit Extremities: no cyanosis, no clubbing, no edema Skin: normal turgor Musculoskeletal: normal tone Psychiatric: normal affect, normal behavior, A&O x 3 Hosp A/P (1) Acute on chronic kidney failure Code(s): N17.9 - ACUTE KIDNEY FAILURE, UNSPECIFIED; N18.9 - CHRONIC KIDNEY DISEASE, UNSPECIFIED Status: Acute (2) PNA (pneumonia) Code(s): J18.9 - PNEUMONIA, UNSPECIFIED ORGANISM Status: Acute Qualifiers: Pneumonia type: due to unspecified organism Laterality: bilateral Lung location: upper lobe of lung Qualified Code(s): J18.9 - Pneumonia, unspecified organism (3) Anemia, normocytic normochromic Code(s): D64.9 - ANEMIA, UNSPECIFIED Status: Chronic (4) Anxiety and depression Code(s): F41.9 - ANXIETY DISORDER, UNSPECIFIED; F32.9 - MAJOR DEPRESSIVE DISORDER, SINGLE EPISODE, UNSPECIFIED Status: Chronic (5) CKD (chronic kidney disease) stage 4, GFR 15-29 ml/min Code(s): N18.4 - CHRONIC KIDNEY DISEASE, STAGE 4 (SEVERE) Status: Chronic (6) Diabetes type 2, controlled Code(s): E11.9 - TYPE 2 DIABETES MELLITUS WITHOUT COMPLICATIONS Status: Chronic Qualifiers: Diabetes mellitus jail insulin use: with jail use Diabetes mellitus complication detail: with chronic kidney disease Chronic kidney disease stage: stage 4 (severe) (7) Dyslipidemia Code(s): E78.5 - HYPERLIPIDEMIA, UNSPECIFIED Status: Chronic (8) Hypertension Code(s): I10 - ESSENTIAL (PRIMARY) HYPERTENSION Status: Chronic Qualifiers: Hypertension type: essential hypertension Qualified Code(s): I10 - Essential (primary) hypertension (9) Hypothyroidism Code(s): E03.9 - HYPOTHYROIDISM, UNSPECIFIED Status: Chronic (10) Myocardial infarction Code(s): I21.9 - ACUTE MYOCARDIAL INFARCTION, UNSPECIFIED Status: Acute Qualifiers: Myocardial infarction type: type 2 Qualified Code(s): I21.A1 - Myocardial infarction type 2 (11) Dysphagia Code(s): R13.10 - DYSPHAGIA, UNSPECIFIED Status: Acute (12) Acute worsening of stage 3 chronic kidney disease Code(s): N18.3 - CHRONIC KIDNEY DISEASE, STAGE 3 (MODERATE) Status: Acute (13) Metabolic acidosis Code(s): E87.2 - ACIDOSIS Status: Chronic (14) Obesity (BMI 30-39.9) Code(s): E66.9 - OBESITY, UNSPECIFIED Status: Chronic - Plan Continue to increase activity. Wean oxygen as tolerated. Check room air sats. Discussed with Dr. Cotton. She has had five days of abx. She has remained afebrile. WBC normal. Will DC abx as there is some concern that the abx are impacting the renal function negatively. Omnicef subsequently started by Dr. Phillips with plans to continue for five days. Renal function trending slightly worse, but generally stable. Continue IV with added bicarb per nephrology. Continue dietary modifications for DM, CKD and texture. Consult nocturnist physician to help her cope with the dietary restrictions/modifications. No immediate indication for dialysis. Can possibly DC home on po abx and OP follow up. Will see if she need home oxygen.
[2019-04-05] MEDS: Atorvastatin Calcium 40 MG TAB PO SCH (20:25)
[2019-04-05] MEDS: Gabapentin 300 MG CAP PO SCH (20:26)
[2019-04-06] MEDS: Levothyroxine Sodium 125 MCG TAB PO SCH (04:26)
[2019-04-06 05:19] LABS: BUN (Urea Nitrogen) 54 mg/dL (9.8-20.1); Calc. Creatinine Clearance 17 mL/min (70-130); Calcium 7.9 mg/dL (7.8-10.44); Carbon Dioxide 20 mmol/L (23-31); Estimated GFR-MDRD 9; Glucose 61 mg/dL (80-115)
[2019-04-06 05:25] LABS: Anion Gap 16 mmol/L (10-20); Chloride 109 mmol/L (98-107); Potassium 4.3 mmol/L (3.5-5.1); Sodium 141 mmol/L (136-145)
[2019-04-06] MEDS ORDERED: Insulin Glargine 10 UNITS in Pre-Filled Syringe SC SCH (09:00)
[2019-04-06] MEDS: Liothyronine Sodium 5 MCG TAB PO SCH (09:13)
[2019-04-06] MEDS: Saccharomyces boulardii 250 MG CAP PO SCH (09:13)
[2019-04-06] MEDS: Aspirin 81 mg Enteric Coated Tablet PO SCH (09:13)
[2019-04-06] MEDS: Metoprolol Tartrate 25 MG TAB PO SCH (09:14)
[2019-04-06] MEDS: Folic Acid/Vit B Comp W-C PO SCH (09:15)
[2019-04-06] MEDS: Cefdinir 300 MG CAP PO SCH (09:15)
[2019-04-06] MEDS: Calcium Carbonate 500 MG TAB PO SCH (09:15)
[2019-04-06] MEDS: Heparin 5,000 UNITS/ML VIAL SC SCH (09:16)
[2019-04-06] MEDS: Azelastine 137 MCG/Spray 30 ML NS SCH (09:16)
[2019-04-06] MEDS: NIFEdipine XL 60 MG TAB PO SCH (09:16)
--- NOTE | 2019-04-06 09:33 | PRG ---
DATE OF SERVICE: 04/06/2019 SUBJECTIVE: A 68-year-old female, being seen for acute kidney injury. The patient denied nausea, vomiting, or chest pain. OBJECTIVE: CONSTITUTIONAL: The patient is awake, alert. VITAL SIGNS: Afebrile, pulse 85, breathing 16, blood pressure 157/84. GENERAL APPEARANCE AND MENTAL STATUS: Fair. HEAD/NECK: Normocephalic. Atraumatic. EYES: EOMI. No deformity. EARS: Clear. No ulcers. NOSE: Intact. No lesions. MOUTH: Clear. No discharge. THROAT: Clear. No exudate. LUNGS: Clear. No crackles. CARDIAC: S1, S2. No rub. ABDOMEN: Benign. Bowel sounds positive. GENITALIA/RECTUM: Coppola absent. BACK/EXTREMITIES: Edema 0+. NEUROLOGICAL: Alert and motor intact. SKIN: LYMPHATICS: LABORATORY DATA: Hemoglobin 7.4. Creatinine is 4.7. ASSESSMENT AND PLAN: 1. Acute kidney injury with chronic kidney disease, stage 5, improved. 2. Anemia. We will recommend transfusion. 3. Hypertension, stable. 4. Congestive heart failure. Continue diuresis. Job ID: [id number]
--- NOTE | 2019-04-06 11:15 | PRG ---
DATE OF SERVICE: 04/06/2019 She tells me that she is probably going home today. She has no acute complaints. OBJECTIVE: VITAL SIGNS: Temperature is 98.3, pulse 86, blood pressure 145/64, O2 saturation 92%. HEENT: Unremarkable. NECK: No adenopathy or JVD. LUNGS: Clear anteriorly. CARDIAC: S1, S2. Regular. ABDOMEN: Soft. EXTREMITIES: No edema. LABORATORY DATA: BUN is 54, creatinine 4.7. ASSESSMENT: 1. Left upper lobe pneumonia, likely from chronic aspiration. 2. Renal failure. PLAN: The patient is ready to go home from my standpoint. She should follow up in the office in about a month for a repeat chest x-ray. Job ID: [id number]
[2019-04-06 15:42] VITALS: BP 174/81; TEMP 97.7
[2019-04-06 16:09] LABS: Cytoplasmic (C-ANCA) <1:20 titer (Neg:<1:20); Perinuclear (P-ANCA) <1:20 titer (Neg:<1:20)
--- NOTE | 2019-04-07 15:19 | DIS ---
DATE OF ADMISSION: 03/30/2019 DATE OF DISCHARGE: 04/06/2019 DISCHARGE DIAGNOSES: 1. Sepsis. 2. Recurrent aspiration pneumonia. 3. Acute on chronic kidney failure. 4. Anemia. 5. Anxiety and depression. 6. Chronic kidney disease stage 4. 7. Diabetes mellitus. 8. Hyperlipidemia. 9. Hypertension. 10. Hypothyroidism. 11. Non-ST elevation myocardial infarction, type 2. 12. Dysphagia. 13. Metabolic acidosis. 14. Obesity. 15. History of gastric sleeve. 16. Acute hypoxic respiratory failure. HISTORY OF PRESENT ILLNESS: The patient is a 68-year-old female, who had recently been admitted to the hospital with episode of pneumonia and was discharged home. She reported increasing shortness of breath, cough, productive of sputum, and generalized weakness, and subsequently brought to the emergency department, where her workup was indicative of recurrent infiltrate in the left mid lung zone consistent with recurrent pneumonia. HOSPITAL COURSE: The patient was admitted to the hospital with supplemental oxygen, started on broad-spectrum antibiotic coverage for recurrent pneumonia and the patient had been hospitalized recently with similar findings on a couple of occasions concerning for possibility of aspiration situation. She was seen in consultation by Pulmonology and Nephrology given the evidence of acute worsening of her chronic kidney disease. She was seen by Speech Pathology and had a barium swallow performed, which revealed some oropharyngeal dysphagia as well as a likely esophageal component and recommendations were made for a pureed diet with extra sauce and gravy use as well as thin liquids. She was seen in consultation by Gastroenterology; however, there was some reluctance to pursue endoscopy given her respiratory status. She did continue to improve with antibiotic treatments. Her renal function remained poor and her GFR generally stayed between 8 and 11; however, she had no other specific indications for dialysis at that time and the patient has been very reluctant to pursue dialysis interventions even if that were indicated. Labs did confirm the patient had iron deficiency with an iron level of 14, iron binding capacity of 201, and percent saturation of 7 with a ferritin level however being normal at 152.7, B12 was 41, folate was 17.1. The patient had some struggles trying to adapt to the swallowing techniques as well as the dietary restrictions. The dietitian was consulted again in order to help her work through these issues. Ultimately, she was able to wean off the oxygen and with her renal function being stable, she was felt to be stable for discharge to home. PHYSICAL EXAMINATION: VITAL SIGNS: On the day of discharge, temperature is 97.7 pulse 78, respirations 14, O2 saturation 91% to 95% on room air, BP was 150/67 up to 174/81. GENERAL: She was awake and alert. HEART: Regular rate and rhythm with no murmurs, gallops, or rubs. LUNGS: Clear. ABDOMEN: Benign. EXTREMITIES: No edema. DISPOSITION: The patient is discharged to home. She is to have a renal diabetic diet with pureed foods with extra sauce and gravy and thin liquids. ACTIVITY: As tolerated. MEDICATIONS: Will include: 1. Omnicef 300 mg b.i.d. 2. Nephro-Osiel one p.o. daily. 3. Sertraline 50 mg daily. 4. Metoprolol 50 mg b.i.d. 5. Liothyronine 5 mcg daily. 6. Nifedipine 120 mg daily. 7. Atorvastatin 40 mg daily. 8. Gabapentin 300 mg daily. 9. Calcium 500 mg daily. 10. Vitamin D3 of 5000 units daily. 11. Aspirin 81 mg daily. 12. Vascepa 2 tablets b.i.d. 13. Astelin 2 sprays per nostril b.i.d. 14. Levothyroxine 125 mcg daily. 15. Insulin glargine 20 units subcu daily and 16 units at bedtime. 16. Trulicity 1.5 mg subcu every . 17. Omeprazole 20 mg daily. 18. Levaquin 250 mg daily. 19. Fluconazole 150 mg daily. FOLLOWUP: She will have [facility]. She will follow up with [facility]. She will follow up with Dr. Jean Joseph in [address] Gurwinder Dowling in 2 to 3 weeks. She can return to the hospital at any time she has the need to do so. Time spent in discharge activities was 40 min. Job ID: [id number] [facility]
--- NOTE | 2019-04-08 07:28 | PQF ---
[employer] Digital Business Analyst [employer] DEVAUGHN Garcia DAVID R MD [id number] [facility]-264 [id number] CLINICAL DOCUMENTATION CLARIFICATION FORM: POST DISCHARGE Addendum to original discharge summary date: ____ Late entry note date: __ DATE: 04/08/2019 ATTN: KARYNA HAWKINS MD Please exercise your independent, professional judgment in responding to the clarification form. Clinical indicators are provided on the bottom of this form for your review Please check appropriate box(s) to clarify if the following diagnosis has been ruled in or ruled out: SEPSIS [ ] Ruled in diagnosis [ ] Continue to treat [ ] Resolved [ ] Ruled out diagnosis [ ] Cannot rule out diagnosis [ ] Other diagnosis [ ] Unable to determine For continuity of documentation, please document condition throughout progress notes and discharge summary. Thank You. CLINICAL INDICATORS - SIGNS / SYMPTOMS / LABS - Sepsis with acute organ dysfunction- H&P, 03/30, Elsa De La Cruz MD - Lactic acidosis, source of infection is recurrent pneumonia and possible urinary tract infection- H&P, 03/30Jono Salim Noorjibhai MD - Temp: 98.1, Pulse:108, RR:22- H&P, 03/30Jono Salim Noorjibhai MD - WBC: 10.2- H&P, 03/30Jono Salim Noorjibhai MD RISK FACTORS - Acute respiratory failure, lactic acidosis- H&P, 03/30Jono Salim Noorjibhai MD - Acute on chronic kidney failure- H&P, 03/30Jono Salim Noorjibhai MD TREATMENTS - Levaquin.IV- 03/30 - Vancomycin.IV- 03/31 (This form is maintained as a part of the permanent medical record) 2014 [employer]. All Rights Reserved Maddie Lee [not provided] [not provided] JOSE
== END 2019-04-06 17:00 | disposition home health service (06) | DRG 871 ==
LOC: ERS 09:35 → 2NO 11:45
PROVIDERS: ADMIT Internal Medicine; ATTEND Internal Medicine
DX: A41.9 Sepsis, unspecified organism (principal); J69.0 Pneumonitis due to inhalation of food and vomit; J96.01 Acute respiratory failure with hypoxia; I50.33 Acute on chronic diastolic (congestive) heart failure; I21.A1 Myocardial infarction type 2; I13.0 Hypertensive heart and chronic kidney disease with heart failure and stage 1 through stage 4 chronic kidney disease, or unspecified chronic kidney disease; N39.0 Urinary tract infection, site not specified; N18.4 Chronic kidney disease, stage 4 (severe); E87.2 Acidosis; N17.9 Acute kidney failure, unspecified; N25.81 Secondary hyperparathyroidism of renal origin; E11.21 Type 2 diabetes mellitus with diabetic nephropathy; D63.1 Anemia in chronic kidney disease; E78.5 Hyperlipidemia, unspecified; F41.9 Anxiety disorder, unspecified; F32.9 Major depressive disorder, single episode, unspecified; E03.9 Hypothyroidism, unspecified; K21.9 Gastro-esophageal reflux disease without esophagitis; K44.9 Diaphragmatic hernia without obstruction or gangrene; E11.22 Type 2 diabetes mellitus with diabetic chronic kidney disease; E66.01 Morbid (severe) obesity due to excess calories; E11.40 Type 2 diabetes mellitus with diabetic neuropathy, unspecified; R13.10 Dysphagia, unspecified; Z90.49 Acquired absence of other specified parts of digestive tract; Z98.84 Bariatric surgery status; Z98.42 Cataract extraction status, left eye; Z98.41 Cataract extraction status, right eye; Z79.4 Long term (current) use of insulin; Z88.1 Allergy status to other antibiotic agents; Z88.8 Allergy status to other drugs, medicaments and biological substances; Z68.35 Body mass index [BMI] 35.0-35.9, adult
CPT/HCPCS: 36415; 36416; 51701; 71045; 74230; 76770; 80048; 80053; 80202; 81003; 81015; 82274; 82570; 82607; 82728; 82746; 83010; 83516; 83520; 83540; 83550; 83605; 83880; 83970; 84100; 84145; 84156; 84484; 85025; 86038; 86160; 86225; 86256; 86376; 87040; 87086; 87804; 93798; 94640; 96361; 96365; 96366; 96368; A4353; J1644; J1815; J1956; J2543; J2916; J3370; J3490; J7070; J7620

== ENCOUNTER 2019-04-29 14:00 | Outpatient (CLI) | payer MEDICARE, OTHER ==
--- NOTE | 2019-04-29 14:17 | RAD ---
XR Chest Pa Lat @ [facility] HISTORY: Dyspnea COMPARISON: 03/30/2019 FINDINGS: The heart size is normal. There is been interval improvement in the left midlung airspace d isease without complete resolution. Small bilateral pleural effusions are seen.
== END 2019-04-29 14:01 | disposition home or self-care (01) ==
LOC: RAD 14:00
PROVIDERS: ATTEND Internal Medicine Critical Care Medicine
DX: R06.00 Dyspnea, unspecified (principal)
CPT/HCPCS: 71046

== ENCOUNTER 2020-08-28 15:49 | Outpatient (CLI) | payer MEDICARE, OTHER | END 2020-08-28 15:50 | disposition home or self-care (01) | LOC: BICCT 15:49 | PROVIDERS: ATTEND Otolaryngology Plastic Surgery within the Head & Neck | DX: R42 Dizziness and giddiness (principal); H80.93 Unspecified otosclerosis, bilateral; Z96.21 Cochlear implant status | CPT/HCPCS: 70480 ==

== ENCOUNTER 2021-05-23 13:25 | Inpatient (IN) | payer MEDICARE ==
[2021-05-23] MEDS ORDERED: Calcium Gluc 4.6 MEQ/10 ML (100 MG/ML) ONE (13:43)
[2021-05-23 13:53] LABS: Actual Bicarbonate (HCO3v) 20 mEq/L (22-28); Analyzer IN Cardio ER; Base Excess -3.4 mEq/L (-2.0 to +3.0); Calcium, Ionized (venous) 1.03 mmol/L (1.16-1.32); Chloride (VBG) 104 mmol/L (98-106); Hemoglobin (Hb) 11.3 g/dL (11.7-16.1); Sodium 133.8 mmol/L (133-146); pH (venous) 7.43 (7.32-7.43)
[2021-05-23 13:58] LABS: #Eosinphils 0.1 thou/uL (0.0-0.7); #Lymphocytes 1.7 thou/uL (1.20-3.40); #Monocytes 0.5 thou/uL (0.11-0.59); #Neutrophils 4.5 thou/uL (1.40-6.50); %Basophils 0.2 % (0.0-1.0); %Eosinophils 1.2 % (0.0-10.0); %Lymphocytes 24.9 % (21.0-51.0); %Monocytes 6.7 % (0.0-10.0); %Neutrophils 67.1 % (42.0-75.0); Hemoglobin 10.4 g/dL (12.0-16.0); Mean Corpuscular HGB CONC 32.5 g/dL (32.0-36.0); Mean Corpuscular Hemoglobin 36.6 pg (27.0-31.0); Mean Platelet Volume 6.8 fL (7.4-10.4); Platelet Count 192 thou/uL (130-400); RBC Distribution Width 15.1 % (11.5-14.5); Red Blood Cell (RBC) Count 2.84 mill/uL (4.20-5.40); White Blood Cell (WBC) Count 6.7 thou/uL (4.8-10.8)
[2021-05-23 14:10] LABS: ALT (SGPT) 16 U/L (8-55); AST (SGOT) 22 U/L (5-34); Albumin 2.9 g/dL (3.4-4.8); Alkaline Phosphatase 57 U/L (40-110); Anion Gap 19 mmol/L (10-20); BUN (Urea Nitrogen) 29 mg/dL (9.8-20.1); Bilirubin, Total 0.3 mg/dL (0.2-1.2); Calc. Creatinine Clearance 0 mL/min (70-130); Calcium 8.5 mg/dL (7.8-10.44); Carbon Dioxide 18 mmol/L (23-31); Chloride 104 mmol/L (98-107); Globulin 2.7 g/dL (2.4-3.5); Glucose 154 mg/dL (83-110); Potassium 6.1 mmol/L (3.5-5.1); Protein, Total 5.6 g/dL (5.8-8.1); Sodium 135 mmol/L (136-145)
[2021-05-23] MEDS ORDERED: Insulin Regular 300 UNITS/3 ML VIAL ONE (14:14)
[2021-05-23] MEDS ORDERED: Sodium Bicarb 50 MEQ/50 ML Abboject 8.4% SYRINGE ONE (14:14)
[2021-05-23] MEDS ORDERED: Dextrose 50% Abboject 50 ML SYRINGE ONE (14:14)
[2021-05-23 14:27] LABS: MDiff Complete? YES; Macrocytosis SLIGHT = 6-15 cells (100X) (0-5/hpf); Platelet Morphology Comment Appears Adequate; Polychromasia SLIGHT = 2-3 cells (100X) (0-2/hpf)
[2021-05-23 14:32] LABS: CKMB 2.7 ng/mL (0-6.6)
[2021-05-23] MEDS ORDERED: LOKELMA 10 GM PACKET PO SCH (14:45)
[2021-05-23] MEDS ORDERED: Ondansetron ODT 4 MG TAB PO PRN (15:14)
[2021-05-23] MEDS ORDERED: Bisacodyl 5 MG TAB PO PRN (15:14)
[2021-05-23] MEDS ORDERED: Acetaminophen 325 MG TAB PO PRN (15:14)
[2021-05-23] MEDS ORDERED: Bisacodyl 10 MG SUPP PR PRN (15:14)
[2021-05-23] MEDS ORDERED: HYDROcodone/Acetaminophen 5/325 mg Tablet PO PRN (15:14)
[2021-05-23] MEDS ORDERED: Ondansetron PF 4 MG/2 ML Vial IVP PRN (15:14)
[2021-05-23] MEDS ORDERED: Dextrose 50% Abboject 50 ML SYRINGE SLOW IVP PRN (16:17)
[2021-05-23] MEDS ORDERED: Insulin Regular 300 UNITS/3 ML VIAL SC PRN (16:17)
[2021-05-23] MEDS ORDERED: Dextrose 5% in Water 1,000 ML IV PRN (16:17)
[2021-05-23 16:42] LABS: SARS-CoV-2 NAA Rapid Test Not Detected (NotDetected)
[2021-05-23 16:59] VITALS: BMI 37.8
[2021-05-23 17:02] LABS: Hemoglobin A1c 4.8 % (4.0-6.0)
[2021-05-23 17:11] LABS: Anion Gap 15 mmol/L (10-20); BUN (Urea Nitrogen) 31 mg/dL (9.8-20.1); Calc. Creatinine Clearance 12 mL/min (70-130); Calcium 9.3 mg/dL (7.8-10.44); Carbon Dioxide 23 mmol/L (23-31); Chloride 105 mmol/L (98-107); Glucose 67 mg/dL (83-110); Potassium 5.8 mmol/L (3.5-5.1); Sodium 137 mmol/L (136-145)
[2021-05-23] MEDS ORDERED: Simethicone Chewable 80 MG TAB PO PRN (17:24)
[2021-05-23] MEDS: hydrALAZINE 20 MG/ML VIAL SLOW IVP PRN (20:12)
[2021-05-23] MEDS: Heparin 5,000 UNITS/ML VIAL SC SCH (20:17)
[2021-05-23] MEDS: Senokot S 8.6-50 MG TAB PO SCH (20:24)
[2021-05-23] MEDS ORDERED: Famotidine 20 MG TAB PO SCH (21:00)
[2021-05-23] MEDS ORDERED: NIFEdipine XL 30 MG TAB PO SCH (22:00)
[2021-05-23 22:27] LABS: Potassium 5.1 mmol/L (3.5-5.1)
[2021-05-23] MEDS ORDERED: niCARdipine 25 MG in Sodium Chloride 0.9% 250 ML 250 ML IVPB SCH (23:00)
[2021-05-23] MEDS ORDERED: niCARdipine 50 MG in Sodium Chloride 0.9% 250 ML 230 ML IV SCH (23:30)
[2021-05-24 03:51] LABS: #Eosinphils 0.1 thou/uL (0.0-0.7); #Lymphocytes 1.4 thou/uL (1.20-3.40); #Monocytes 0.5 thou/uL (0.11-0.59); #Neutrophils 4.1 thou/uL (1.40-6.50); %Basophils 0.4 % (0.0-1.0); %Eosinophils 1.4 % (0.0-10.0); %Lymphocytes 22.7 % (21.0-51.0); %Monocytes 7.7 % (0.0-10.0); %Neutrophils 67.9 % (42.0-75.0); Hemoglobin 10.3 g/dL (12.0-16.0); Mean Corpuscular HGB CONC 32.7 g/dL (32.0-36.0); Mean Corpuscular Hemoglobin 36.3 pg (27.0-31.0); Mean Platelet Volume 6.9 fL (7.4-10.4); Platelet Count 171 thou/uL (130-400); RBC Distribution Width 14.9 % (11.5-14.5); Red Blood Cell (RBC) Count 2.84 mill/uL (4.20-5.40); White Blood Cell (WBC) Count 6.1 thou/uL (4.8-10.8)
[2021-05-24 04:14] LABS: Troponin I 0.265 ng/mL (< 0.028)
[2021-05-24 04:17] LABS: Anion Gap 14 mmol/L (10-20); BUN (Urea Nitrogen) 29 mg/dL (9.8-20.1); Calc. Creatinine Clearance 12 mL/min (70-130); Calcium 8.9 mg/dL (7.8-10.44); Carbon Dioxide 24 mmol/L (23-31); Chloride 104 mmol/L (98-107); Glucose 127 mg/dL (83-110); Magnesium 1.7 mg/dL (1.6-2.6); Potassium 4.5 mmol/L (3.5-5.1); Sodium 137 mmol/L (136-145)
[2021-05-24] MEDS: Levothyroxine Sodium 125 MCG TAB PO SCH (06:13)
[2021-05-24] MEDS ORDERED: Non-Formulary Item 1 EACH (Insulin Glargine,Hum.Rec.Anlog [Basaglar Kwikpen U-100] 100 UN SQ SCH (09:00)
[2021-05-24] MEDS ORDERED: NIFEdipine XL 60 MG TAB PO SCH (09:00)
[2021-05-24] MEDS: Aspirin 81 mg Enteric Coated Tablet PO SCH (09:12)
[2021-05-24] MEDS: Liothyronine Sodium 5 MCG TAB PO SCH (09:13)
[2021-05-24] MEDS: Heparin 5,000 UNITS/ML VIAL SC SCH ×3 (09:13→21:56)
[2021-05-24] MEDS: Furosemide 20 MG TAB PO SCH (09:13)
[2021-05-24] MEDS: Docusate 100 MG CAP PO SCH (09:14)
[2021-05-24] MEDS: Senokot S 8.6-50 MG TAB PO SCH (09:14)
[2021-05-24] MEDS: Gabapentin 300 MG CAP PO SCH (16:08)
[2021-05-24] MEDS: Carvedilol 6.25 MG TAB PO SCH (16:09)
[2021-05-25 03:43] LABS: #Eosinphils 0.1 thou/uL (0.0-0.7); #Lymphocytes 1.8 thou/uL (1.20-3.40); #Monocytes 0.5 thou/uL (0.11-0.59); #Neutrophils 2.7 thou/uL (1.40-6.50); %Basophils 0.9 % (0.0-1.0); %Eosinophils 1.8 % (0.0-10.0); %Lymphocytes 35.1 % (21.0-51.0); %Monocytes 9.6 % (0.0-10.0); %Neutrophils 52.5 % (42.0-75.0); Hemoglobin 10.3 g/dL (12.0-16.0); Mean Corpuscular HGB CONC 33.2 g/dL (32.0-36.0); Mean Corpuscular Hemoglobin 36.8 pg (27.0-31.0); Mean Platelet Volume 7.2 fL (7.4-10.4); Platelet Count 174 thou/uL (130-400); Red Blood Cell (RBC) Count 2.79 mill/uL (4.20-5.40); White Blood Cell (WBC) Count 5.2 thou/uL (4.8-10.8)
[2021-05-25 04:07] LABS: Anion Gap 15 mmol/L (10-20); BUN (Urea Nitrogen) 32 mg/dL (9.8-20.1); Calc. Creatinine Clearance 10 mL/min (70-130); Calcium 8.2 mg/dL (7.8-10.44); Carbon Dioxide 22 mmol/L (23-31); Chloride 105 mmol/L (98-107); Glucose 77 mg/dL (83-110); Potassium 4.6 mmol/L (3.5-5.1); Sodium 137 mmol/L (136-145)
[2021-05-25] MEDS: Levothyroxine Sodium 125 MCG TAB PO SCH (05:55)
[2021-05-25] MEDS: NIFEdipine XL 60 MG TAB PO SCH ×2 (10:01→20:43)
[2021-05-25] MEDS: Carvedilol 6.25 MG TAB PO SCH ×2 (10:02→16:02)
[2021-05-25] MEDS: Liothyronine Sodium 5 MCG TAB PO SCH (10:02)
[2021-05-25] MEDS: Furosemide 20 MG TAB PO SCH (10:02)
[2021-05-25] MEDS: Docusate 100 MG CAP PO SCH (10:03)
[2021-05-25] MEDS: Aspirin 81 mg Enteric Coated Tablet PO SCH (10:03)
[2021-05-25] MEDS: Heparin 5,000 UNITS/ML VIAL SC SCH ×3 (10:03→21:49)
[2021-05-25] MEDS: hydrALAZINE 20 MG/ML VIAL SLOW IVP PRN (12:37)
[2021-05-25] MEDS: Gabapentin 300 MG CAP PO SCH (16:02)
[2021-05-26 04:47] LABS: #Eosinphils 0.1 thou/uL (0.0-0.7); #Lymphocytes 1.3 thou/uL (1.20-3.40); #Monocytes 0.4 thou/uL (0.11-0.59); #Neutrophils 3.5 thou/uL (1.40-6.50); %Basophils 0.6 % (0.0-1.0); %Eosinophils 1.7 % (0.0-10.0); %Lymphocytes 23.9 % (21.0-51.0); %Monocytes 7.6 % (0.0-10.0); %Neutrophils 66.2 % (42.0-75.0); Hemoglobin 10.4 g/dL (12.0-16.0); Mean Corpuscular HGB CONC 32.1 g/dL (32.0-36.0); Mean Platelet Volume 6.9 fL (7.4-10.4); Platelet Count 203 thou/uL (130-400); RBC Distribution Width 15.1 % (11.5-14.5); Red Blood Cell (RBC) Count 2.89 mill/uL (4.20-5.40); White Blood Cell (WBC) Count 5.3 thou/uL (4.8-10.8)
[2021-05-26 05:10] LABS: Anion Gap 16 mmol/L (10-20); BUN (Urea Nitrogen) 33 mg/dL (9.8-20.1); Calc. Creatinine Clearance 10 mL/min (70-130); Calcium 8.1 mg/dL (7.8-10.44); Carbon Dioxide 20 mmol/L (23-31); Cardiac Risk 3.5 (Less than 4.5); Chloride 104 mmol/L (98-107); Cholesterol 159 mg/dl (< 200 Desired); Glucose 200 mg/dL (83-110); HDL Cholesterol 46 mg/dL (>60 Neg Risk); LDL Cholesterol, Calculated 77 mg/dL; Potassium 4.2 mmol/L (3.5-5.1); Sodium 136 mmol/L (136-145); Triglycerides 178 mg/dL (Less than 150)
[2021-05-26] MEDS: Levothyroxine Sodium 125 MCG TAB PO SCH (05:12)
[2021-05-26] MEDS: Icosapent Ethyl 1 GM CAPSULE PO SCH ×2 (09:11→20:26)
[2021-05-26] MEDS: Docusate 100 MG CAP PO SCH (09:11)
[2021-05-26] MEDS: Aspirin 81 mg Enteric Coated Tablet PO SCH (09:12)
[2021-05-26] MEDS: Carvedilol 6.25 MG TAB PO SCH ×2 (09:12→16:33)
[2021-05-26] MEDS: Heparin 5,000 UNITS/ML VIAL SC SCH ×3 (09:12→20:27)
[2021-05-26] MEDS: NIFEdipine XL 60 MG TAB PO SCH ×2 (09:12→20:26)
[2021-05-26] MEDS: Furosemide 20 MG TAB PO SCH (09:12)
[2021-05-26] MEDS: Liothyronine Sodium 5 MCG TAB PO SCH (09:25)
[2021-05-26] MEDS: HumaLOG 300 UNITS/3 ML VIAL SC PRN (12:19)
[2021-05-26] MEDS: Gabapentin 300 MG CAP PO SCH (16:33)
[2021-05-27 05:09] LABS: #Eosinphils 0.1 thou/uL (0.0-0.7); #Lymphocytes 1.4 thou/uL (1.20-3.40); #Monocytes 0.4 thou/uL (0.11-0.59); %Basophils 0.8 % (0.0-1.0); %Eosinophils 2.4 % (0.0-10.0); %Lymphocytes 28.5 % (21.0-51.0); %Monocytes 7.5 % (0.0-10.0); %Neutrophils 60.8 % (42.0-75.0); Hemoglobin 10.5 g/dL (12.0-16.0); Mean Corpuscular HGB CONC 31.9 g/dL (32.0-36.0); Mean Corpuscular Hemoglobin 36.1 pg (27.0-31.0); Platelet Count 233 thou/uL (130-400); Red Blood Cell (RBC) Count 2.91 mill/uL (4.20-5.40)
[2021-05-27 05:32] LABS: Anion Gap 16 mmol/L (10-20); BUN (Urea Nitrogen) 31 mg/dL (9.8-20.1); Calc. Creatinine Clearance 9 mL/min (70-130); Carbon Dioxide 21 mmol/L (23-31); Chloride 104 mmol/L (98-107); Glucose 172 mg/dL (83-110); Potassium 3.8 mmol/L (3.5-5.1); Sodium 137 mmol/L (136-145)
[2021-05-27] MEDS: Levothyroxine Sodium 125 MCG TAB PO SCH (06:18)
[2021-05-27] MEDS: HumaLOG 300 UNITS/3 ML VIAL SC PRN (06:25)
[2021-05-27 08:17] VITALS: TEMP 97.8
[2021-05-27] MEDS: NIFEdipine XL 60 MG TAB PO SCH (08:18)
[2021-05-27] MEDS: Liothyronine Sodium 5 MCG TAB PO SCH (08:18)
[2021-05-27] MEDS: Furosemide 20 MG TAB PO SCH (08:18)
[2021-05-27] MEDS: Aspirin 81 mg Enteric Coated Tablet PO SCH (08:18)
[2021-05-27] MEDS: Carvedilol 6.25 MG TAB PO SCH (08:18)
[2021-05-27] MEDS: Docusate 100 MG CAP PO SCH (08:18)
[2021-05-27] MEDS: Heparin 5,000 UNITS/ML VIAL SC SCH (08:19)
[2021-05-27] MEDS: Icosapent Ethyl 1 GM CAPSULE PO SCH (08:22)
[2021-05-27 09:58] VITALS: BP 137/61
== END 2021-05-27 12:00 | disposition home or self-care (01) | DRG 640 ==
LOC: ERS 13:25 → SUATTDRO 13:25 → CCU 15:11 → 2NO 05-25 15:15
PROVIDERS: ADMIT Family Medicine; ATTEND Internal Medicine
PROC: 3E1M39Z Irrigation of Peritoneal Cavity using Dialysate, Percutaneous Approach (ICD-10-PCS; principal; 2021-05-23)
DX: E87.5 Hyperkalemia (principal); N18.6 End stage renal disease; I42.9 Cardiomyopathy, unspecified; I13.2 Hypertensive heart and chronic kidney disease with heart failure and with stage 5 chronic kidney disease, or end stage renal disease; I50.22 Chronic systolic (congestive) heart failure; R00.1 Bradycardia, unspecified; E87.2 Acidosis; R55 Syncope and collapse; Z20.822 Contact with and (suspected) exposure to COVID-19; E11.22 Type 2 diabetes mellitus with diabetic chronic kidney disease; I34.0 Nonrheumatic mitral (valve) insufficiency; I95.9 Hypotension, unspecified; D63.1 Anemia in chronic kidney disease; I25.10 Atherosclerotic heart disease of native coronary artery without angina pectoris; E11.649 Type 2 diabetes mellitus with hypoglycemia without coma; H91.91 Unspecified hearing loss, right ear; F41.9 Anxiety disorder, unspecified; F32.A Depression, unspecified; R79.89 Other specified abnormal findings of blood chemistry; K21.9 Gastro-esophageal reflux disease without esophagitis; Z96.21 Cochlear implant status; E66.01 Morbid (severe) obesity due to excess calories; I27.20 Pulmonary hypertension, unspecified; E78.2 Mixed hyperlipidemia; E03.9 Hypothyroidism, unspecified; Z88.1 Allergy status to other antibiotic agents; Z99.2 Dependence on renal dialysis; Z88.2 Allergy status to sulfonamides; Z91.041 Radiographic dye allergy status; Z88.8 Allergy status to other drugs, medicaments and biological substances; Z68.33 Body mass index [BMI] 33.0-33.9, adult; Z79.4 Long term (current) use of insulin; Z79.82 Long term (current) use of aspirin; Z79.899 Other long term (current) drug therapy; Z90.49 Acquired absence of other specified parts of digestive tract; Z79.890 Hormone replacement therapy
CPT/HCPCS: 36415; 36416; 71045; 80048; 80053; 80061; 82553; 82805; 83036; 83735; 83880; 84100; 84484; 85025; 90945; 93005; 93306; 96374; 96375; G0257; J0360; J0610; J1644; J1815; J7050; U0002

== ENCOUNTER 2021-07-27 15:58 | Emergency (ER) | payer MEDICARE ==
[2021-07-27 16:31] LABS: #Basophils 0.1 thou/uL (0.0-0.2); #Eosinphils 0.2 thou/uL (0.0-0.7); #Monocytes 0.6 thou/uL (0.11-0.59); #Neutrophils 5.9 thou/uL (1.40-6.50); %Basophils 0.6 % (0.0-1.0); %Eosinophils 2.2 % (0.0-10.0); %Lymphocytes 23.3 % (21.0-51.0); %Monocytes 6.5 % (0.0-10.0); %Neutrophils 67.4 % (42.0-75.0); Hemoglobin 9.6 g/dL (12.0-16.0); Mean Corpuscular HGB CONC 33.2 g/dL (32.0-36.0); Mean Corpuscular Hemoglobin 35.6 pg (27.0-31.0); Mean Platelet Volume 6.6 fL (7.4-10.4); Platelet Count 243 thou/uL (130-400); RBC Distribution Width 15.5 % (11.5-14.5); White Blood Cell (WBC) Count 8.8 thou/uL (4.8-10.8)
[2021-07-27 16:55] LABS: ALT (SGPT) 23 U/L (8-55); AST (SGOT) 30 U/L (5-34); Albumin 3.1 g/dL (3.4-4.8); Alkaline Phosphatase 84 U/L (40-110); Anion Gap 18 mmol/L (10-20); BUN (Urea Nitrogen) 41 mg/dL (9.8-20.1); Bilirubin, Total 0.3 mg/dL (0.2-1.2); Calc. Creatinine Clearance 0 mL/min (70-130); Carbon Dioxide 23 mmol/L (23-31); Chloride 100 mmol/L (98-107); Globulin 3.6 g/dL (2.4-3.5); Glucose 112 mg/dL (83-110); Potassium 3.4 mmol/L (3.5-5.1); Protein, Total 6.7 g/dL (5.8-8.1); Sodium 138 mmol/L (136-145)
[2021-07-27 17:27] LABS: CKMB 2.4 ng/mL (0-6.6)
== END 2021-07-27 17:47 | disposition home or self-care (01) ==
LOC: ERS 15:58
DX: R00.1 Bradycardia, unspecified (principal); E11.9 Type 2 diabetes mellitus without complications; E78.5 Hyperlipidemia, unspecified; I10 Essential (primary) hypertension
CPT/HCPCS: 80053; 82553; 84484; 85025; 93005

== ENCOUNTER 2021-08-22 14:35 | Emergency (ER) | payer MEDICARE ==
[2021-08-22 15:33] LABS: #Eosinphils 0.2 thou/uL (0.0-0.7); #Lymphocytes 1.4 thou/uL (1.20-3.40); #Monocytes 0.4 thou/uL (0.11-0.59); %Eosinophils 2.6 % (0.0-10.0); %Lymphocytes 19.6 % (21.0-51.0); %Monocytes 5.1 % (0.0-10.0); %Neutrophils 72.7 % (42.0-75.0); Hemoglobin 8.2 g/dL (12.0-16.0); Mean Corpuscular HGB CONC 33.5 g/dL (32.0-36.0); Mean Corpuscular Hemoglobin 35.3 pg (27.0-31.0); Mean Platelet Volume 6.5 fL (7.4-10.4); Platelet Count 199 thou/uL (130-400); RBC Distribution Width 15.4 % (11.5-14.5); Red Blood Cell (RBC) Count 2.32 mill/uL (4.20-5.40); White Blood Cell (WBC) Count 6.9 thou/uL (4.8-10.8)
[2021-08-22 15:57] LABS: ALT (SGPT) 15 U/L (8-55); AST (SGOT) 16 U/L (5-34); Albumin 2.9 g/dL (3.4-4.8); Alkaline Phosphatase 78 U/L (40-110); Anion Gap 14 mmol/L (10-20); BUN (Urea Nitrogen) 35 mg/dL (9.8-20.1); Bilirubin, Total 0.3 mg/dL (0.2-1.2); Calc. Creatinine Clearance 0 mL/min (70-130); Calcium 8.5 mg/dL (7.8-10.44); Carbon Dioxide 28 mmol/L (23-31); Chloride 100 mmol/L (98-107); Globulin 3.6 g/dL (2.4-3.5); Glucose 165 mg/dL (83-110); Potassium 4.1 mmol/L (3.5-5.1); Protein, Total 6.5 g/dL (5.8-8.1); Sodium 138 mmol/L (136-145)
== END 2021-08-22 23:08 | disposition short-term general hospital (02) ==
LOC: ERS 14:35
DX: R00.1 Bradycardia, unspecified (principal); D64.9 Anemia, unspecified; R06.02 Shortness of breath; E78.5 Hyperlipidemia, unspecified; I10 Essential (primary) hypertension
CPT/HCPCS: 36415; 71045; 80053; 83880; 84484; 85025; 93005

== ENCOUNTER 2021-09-14 13:47 | Outpatient (CLI) | payer MEDICARE | END 2021-09-14 13:48 | disposition home or self-care (01) | LOC: BICRAD 13:47 | PROVIDERS: ATTEND Internal Medicine Nephrology | DX: E87.70 Fluid overload, unspecified (principal); I50.9 Heart failure, unspecified; K22.89 Other specified disease of esophagus | CPT/HCPCS: 71046 ==

== ENCOUNTER 2021-09-21 10:54 | Outpatient (CLI) | payer MEDICARE | END 2021-09-21 10:55 | disposition home or self-care (01) | LOC: LABBT 10:54 | PROVIDERS: ATTEND Internal Medicine Gastroenterology | DX: Z01.812 Encounter for preprocedural laboratory examination (principal); R93.3 Abnormal findings on diagnostic imaging of other parts of digestive tract; Z20.822 Contact with and (suspected) exposure to COVID-19 | CPT/HCPCS: 87811 ==

== ENCOUNTER → 2021-09-26 | Day surgery (SDC) | payer MEDICARE | END | disposition home or self-care (01) | LOC: SDC 13:42 | PROVIDERS: ATTEND Internal Medicine Gastroenterology | DX: R13.10 Dysphagia, unspecified (principal); R93.3 Abnormal findings on diagnostic imaging of other parts of digestive tract; Z88.1 Allergy status to other antibiotic agents; Z88.2 Allergy status to sulfonamides; Z91.041 Radiographic dye allergy status; Z98.84 Bariatric surgery status | CPT/HCPCS: 91010 ==

== ENCOUNTER 2021-11-09 00:33 | Emergency (ER) | payer MEDICARE | END 2021-11-09 02:40 | disposition home or self-care (01) | LOC: ERS 00:33 | DX: R04.0 Epistaxis (principal); E78.5 Hyperlipidemia, unspecified; E11.22 Type 2 diabetes mellitus with diabetic chronic kidney disease; I12.0 Hypertensive chronic kidney disease with stage 5 chronic kidney disease or end stage renal disease; N18.6 End stage renal disease; Z99.2 Dependence on renal dialysis | CPT/HCPCS: 99283 ==

== ENCOUNTER 2021-12-12 15:45 | Outpatient (CLI) | payer MEDICARE | END 2021-12-12 15:46 | disposition home or self-care (01) | LOC: CTENTCT 15:45 | PROVIDERS: ATTEND Student in an Organized Health Care Education/Training Program | DX: J33.1 Polypoid sinus degeneration (principal) | CPT/HCPCS: 70486 ==